=== PATIENT | female | born 1965 | race African-American/Black ===

== ENCOUNTER 2025-07-06 12:14 | Inpatient (IN) | payer MEDICAID, OTHER ==
[~2025-07-06] VITALS: Ht 167.6 cm; Wt 55.5 kg
[2025-07-06 12:45] VITALS: PULSE 110; RESP 20; O2SAT 95
--- NOTE | 2025-07-06 12:52 | ED.PDOC ---
SOB-HPI HPI Comments This is a 60 year old female BIBA presenting to the ED with chief complaint of SOB. Patient reports that she has been experiencing worsening SOB with associated abdominal swelling and bilateral leg swelling for the past 2-3 days. Patient relays that she has history of COPD and has used her inhaler, but no relief has been noted. Patient denies any chest pain, fever, chills, dizziness, cough, or hemoptysis. Chief Complaint: Shortness of Breath Time Seen by MD: 12:50 Reviewed notes: Nurses Notes, Vamp Wetter Notes, Medications, Allergies Information Source: Patient, Emergency Med Personnel Mode of Arrival: EMS Severity: Moderate Timing: Hours Duration: Since onset Context: At Rest PE Risk Factors: None History of: COPD Prehospital treatment: None Modifying Factors: Nothing Associated Signs and Symptoms: Leg Swelling Past Medical History PAST MEDICAL HISTORY: Anemia, COPD Surgical History: Denies all surgeries MANAGER CIVIL History: Denies all MANAGER CIVIL Hx Family History Family History: Reviewed,noncontributory to illness Social History Smoker: Non-Smoker Alcohol: Denies ETOH Use Drugs: Denies Drug Use Lives In: Home Constitutional: denies: chills, diaphoresis, fatigue, fever, malaise, sweats, weakness, others EENTM: denies: blurred vision, double vision, ear bleeding, ear discharge, ear drainage, ear pain, ear ringing, eye pain, eye redness, hearing loss, mouth pain, mouth swelling, nasal discharge, nose bleeding, nose congestion, nose pain, photophobia, tearing, throat pain, throat swelling, voice changes, others Respiratory: reports: shortness of breath; denies: cough, hemoptysis, orthopnea, SOB at rest, SOB with excertion, stridor, wheezing, others Cardiovascular: reports: edema; denies: chest pain, dizzy spells, diaphoresis, Dyspnea on exertion, irregular heart beat, left arm pain, lightheadedness, palpitations, PND, syncope, others Gastrointestinal: denies: abdomen distended, abdominal pain, blood streaked bowels, constipated, diarrhea, dysphagia, difficulty swallowing, hematemesis, melena, nausea, poor appetite, poor fluid intake, rectal bleeding, rectal pain, vomiting, others Genitourinary: denies: abnormal vagina bleeding, burning, dyspareunia, dysuria, flank pain, frequency, hematuria, incontinence, pain, , vagina discharge, urgency, others Neurological: denies: dizziness, fainting, headache, left sided numbness, left sided weakness, numbness, paresthesia, pre-existing deficit, right sided numbness, right sided weakness, seizure, speech problems, tingling, tremors, weakness, others Musculoskeletal: denies: back pain, gout, joint pain, joint swelling, muscle pain, muscle stiffness, neck pain, others Integumetry: denies: bruises, change in color, change in hair/nails, dryness, laceration, lesions, lumps, rash, wounds, others Allergic/Immunocompromised: denies: Difficulty Healing, Frequent Infections, Hives, Itching, others Hematologic/Lymphatic: denies: anemia, blood clots, easy bleeding, easy bruising, swollen glands, others Endocrine: denies: excessive hunger, excessive sweating, excessive thirst, excessive urination, flushing, intolerance to cold, intolerance to heat, unexplained weight gain, unexplained weight loss, others Psychiatric: denies: anxiety, bipolar disorder, depression, hopeless, panic disorder, schizophrenia, sleepless, suicidal, others All Other Systems: Reviewed and Negative Physical Exam General Appearance: No Apparent Distress, Normal HEENT: Normal ENT Inspection, Pharynx Normal, TMs Normal Neck: Full Range of Motion, Non-Tender, Normal, Normal Inspection Respiratory: Chest Non-Tender, No Accessory Muscle Use, No Respiratory Distress, Other (Tachypnea, Shallow breathing) Cardiovascular: No JVD, No Murmur, No Gallop, Normal Peripheral Pulses, Tachycardia, Other (Bilateral lower extremity edema) Breast Exam: Deferred Gastrointestinal: No Organomegaly, Non Tender, No Pulsatile Mass, Normal Bowel Sounds, Soft Genitalia: Deferred Pelvic: Deferred Rectal: Deferred Extremities: No calf tenderness, Normal capillary refill, Normal inspection, Normal range of motion, Non-tender Musculoskeletal : Apperance: Normal Neurologic: Alert, software designer II-XII nml as Tested, No Motor Deficits, Normal Affect, Normal Mood, No Sensory Deficits Cerebellar Function: Normal Reflexes: Normal Skin: Dry, Normal Color, Warm Lymphatic: No Adenopathy Was a procedure done? Was a procedure done?: No Differential Dx Differential Diagnosis: CHF, COPD X-Ray, Labs, Meds, VS Vital Signs Date Time Temp Pulse Resp B/P (MAP) Pulse Ox O2 Delivery O2 Flow Rate FiO2 07/06/25 16:00 111 07/06/25 16:00 99 22 115/61 (79) 07/06/25 15:00 119 22 95 Nasal Cannula* 4 36 07/06/25 14:34 110/73 07/06/25 14:00 16 100 Nasal Cannula* 4 36 07/06/25 12:45 98.3 110 20 122/76 (91) 95 98.3 07/06/25 12:45 110 20 95 Nasal Cannula* 4 36 07/06/25 12:15 98.7 65 22 95/60 95 98.7 Lab Test 07/06/25 16:54 07/06/25 15:55 07/06/25 13:47 07/06/25 12:50 Range/Units Urine Color Light-yellow Yellow Urine Clarity Clear Clear Urine pH 5.5 5.0-9.0 Urine Specific [place] 1.024 1.001-1.035 Urine Protein Negative Negative Urine Ketones Negative Negative Urine Blood Negative Negative /uL Urine Nitrite Negative Negative Urine Bilirubin Negative Negative Urine Urobilinogen Normal Negative mg/dL Urine Leukocyte Esterase Negative Negative /uL Urine RBC 2 0 - 4 /hpf Urine Microscopic WBC 1 0-5 /HPF Urine Squamous Epithelial Cells Few <5 /hpf Urine Bacteria Few H None Seen /hpf Urine Mucus Few None Seen Urine Glucose Normal Normal mg/dL Troponin I High Sensitivity 171 *H 160 *H 160 *H </=34 ng/L Sodium Level 139 136-145 mmol/L Potassium Level 4.6 3.5-5.1 mmol/L Chloride Level 102 98-107 mmol/L Carbon Dioxide Level 31 20-31 mmol/L Anion Gap 6 5-15 Blood Urea Nitrogen 14 9-23 mg/dL Creatinine 0.66 0.550-1.02 mg/dL Glomerular Filtration Rate Calc 99 >90 mL/min BUN/Creatinine Ratio 21.2 H 10.0-20.0 Serum Glucose 98 74-106 mg/dL Calcium Level 8.4 L 8.7-10.4 mg/dL Total Bilirubin 0.8 0.2-1.0 mg/dL Aspartate Amino Transferase (AST) 23 13-40 U/L Alanine Aminotransferase (ALT) 16 7-40 U/L Alkaline Phosphatase 78 46-116 U/L Total Protein 7.1 5.7-8.2 g/dL Albumin 2.8 L 3.2-4.8 g/dL Lipase 19 12-53 U/L White Blood Count 9.8 4.4-10.8 10^3/uL Red Blood Count 5.33 H 4.0-5.20 10^6/uL Hemoglobin 15.5 12.2-16.2 g/dL Hematocrit 48.0 H 36.0-46.0 % Mean Corpuscular Volume 90.0 80.0-100.0 fL Mean Corpuscular Hemoglobin 29.0 28.0-32.0 pg Mean Corpuscular Hemoglobin Concent 32.2 32.0-36.0 g/dL Red Cell Distribution Width 16.8 H 11.8-14.3 % Platelet Count 219 140-450 10^3/uL Mean Platelet Volume 9.8 6.9-10.8 fL Neutrophils (%) (Auto) 76.2 37.0-80.0 % Lymphocytes (%) (Auto) 19.1 10.0-50.0 % Monocytes (%) (Auto) 4.2 0.0-12.0 % Eosinophils (%) (Auto) 0.1 0.0-7.0 % Basophils (%) (Auto) 0.4 0.0-2.0 % Neutrophils # (Auto) 7.4 1.6-8.6 10 ^3/uL Lymphocytes # (Auto) 1.9 0.4-5.4 10 ^3/uL Monocytes # (Auto) 0.4 0-1.3 10 ^3/uL Eosinophils # (Auto) 0 0-0.8 10 ^3/uL Basophils # (Auto) 0 0-0.2 10 ^3/uL Nucleated Red Blood Cells 0.2 % Hemoglobin A1c 6.4 H <5.7 % A1C Lactic Acid Level 2.0 0.4-2.0 mmol/L B-Type Natriuretic Peptide 701.28 0-100 pg/mL Microbiology Date/Time Source Procedure Growth Status 07/06/25 13:03 Blood Blood Culture - Preliminary NO GROWTH AFTER 48 HOURS OF INCUBATION. Resulted 07/06/25 12:50 Blood Blood Culture - Preliminary NO GROWTH AFTER 48 HOURS OF INCUBATION. Resulted Time of 1ST Reevaluation: 13:48 Reevaluation 1ST: Unchanged Patient Education/Counseling: Diagnosis, Treatment Family Education/Counseling: Diagnosis, Treatment SEPSIS Sepsis Screen Physician Orders Chest Portable (07/06/25 12:47) Electrocardigram (07/06/25 12:47) Blood Culture (07/06/25 12:47) Electrocardigram (07/06/25 13:47) Electrocardigram (07/06/25 15:47) Ct Chest/Ab/Pl W Con- Iv Only (07/06/25 15:34) Vital Signs Date Time Temp Pulse Resp B/P (MAP) Pulse Ox O2 Delivery O2 Flow Rate FiO2 07/06/25 16:00 111 07/06/25 16:00 99 22 115/61 (79) 07/06/25 15:00 119 22 95 Nasal Cannula* 4 36 07/06/25 14:34 110/73 07/06/25 14:00 16 100 Nasal Cannula* 4 36 07/06/25 12:45 98.3 110 20 122/76 (91) 95 98.3 07/06/25 12:45 110 20 95 Nasal Cannula* 4 36 07/06/25 12:15 98.7 65 22 95/60 95 98.7 Laboratory Tests Test 07/06/25 12:50 Lactic Acid Level 2.0 mmol/L (0.4-2.0) White Blood Count 9.8 10^3/uL (4.4-10.8) Departure 1 Departure Time of Disposition: 07:10 (Patient presented with acute shortness of breath concerning for acute on chronic COPD Exacerbation, Pneumonia, ACS, CHF, Pneumothorax. Less likely PE, Dissection. Data: 1. I ordered and reviewed the result of at least 3 labs including a CBC, BMP, and Troponin. 2. I independently interpreted the following tests: Chest X-ray shows benign chest .Risk:This patient has a high risk of morbidity due to further diagnostic testing or treatment and may suffer from respiratory or cardiac etiology . Workup reveals a likely COPD Exacerbation and patient should be admitted for further workup. and possible expert consultation.) Impression: Primary Impression: Acute and chronic respiratory failure Additional Impression: Shortness of breath Disposition: ADMITTED INPATIENT Admit to: Tele Condition: Guarded Critical Care Note Critical Care Time?: Yes Critical care comment: Acute on chronic respiratory failure Authorized and Performed by: Kyleigh Rivera MD Total critical care time: Approximately 39 minutes Due to a high probability of clinically significant, life threatening deterioration, the patient required my highest level of preparedness to intervene emergently and I personally spent this critical care time directly and personally managing the patient. This critical care time included obtaining a history; examining the patient; pulse oximetry; ordering and review of studies; arranging urgent treatment with development of a management plan; evaluation of patient's response to treatment; frequent reassessment; and, discussions with other providers. This critical care time was performed to assess and manage the high probability of imminent, life-threatening deterioration that could result in multi-organ failure. It was exclusive of separately billable procedures and treating other patients and teaching time. Please see my other sections and the rest of the note for further information on patient assessment and treatment. Stability Stability form required: No Heart Score Heart Score: Heart Score Response (Comments) Value History Highly Suspicious 2 EKG Normal 0 Age 45-64 1 Risk Factors >3 or Hx ASHD 2 Troponin Normal limit 0 Total 5 I personally scribed for KYLEIGH RIVERA MD ([email or web address]) on 07/06/25 at 12:52. Electronically submitted by Cahim Sosa ([email or web address]). KYLEIGH RIVERA MD Jul 06, 2025 12:52
[2025-07-06 13:37] LABS: Hematocrit 48.0 % (36.0-46.0); Hemoglobin 15.5 g/dL (12.2-16.2); Mean Corpuscular Hemoglobin 29.0 pg (28.0-32.0); Mean Corpuscular Volume 90.0 fL (80.0-100.0); Nucleated Red Blood Cells % 0.2 %
--- NOTE | 2025-07-06 13:38 | DVH ---
CHEST RADIOGRAPH Indication: sob Technique: Single frontal view of the chest was obtained Comparison: None FINDINGS: Lines and Tubes: None Lungs: Hyperinflation of the lungs. Diffuse interstitial prominence. Patchy opacities of the right lower lobe and left upper to mid lung zone. Blunting of the left costophrenic angle. No pneumothorax. Cardiomediastinal contours: Unremarkable Bones: No acute osseous abnormality. IMPRESSION: Hyperinflation of the lungs with diffuse interstitial prominence which could be from fibrotic changes with patchy left upper to mid lung zone and right lower lung zone opacities which may represent areas of scarring. Underlying mass can not be excluded. CT is recommended for further evaluation. Blunting of the left costophrenic angle which may be from atelectasis/ scarring/trace effusion.
[2025-07-06 14:18] LABS: Alanine Aminotransferase 16 U/L (7-40); Alkaline Phosphatase 78 U/L (46-116); Anion Gap 6 (5-15); BUN/Creatinine Ratio 21.2 (10.0-20.0); Blood Urea Nitrogen 14 mg/dL (9-23); Carbon Dioxide 31 mmol/L (20-31); Chloride 102 mmol/L (98-107); Glucose 98 mg/dL (74-106); Potassium 4.6 mmol/L (3.5-5.1); Sodium 139 mmol/L (136-145); Total Protein 7.1 g/dL (5.7-8.2)
[2025-07-06 14:19] LABS: Bilirubin, Total 0.8 mg/dL (0.2-1.0)
[2025-07-06 14:20] LABS: Albumin 2.8 g/dL (3.2-4.8); Calcium 8.4 mg/dL (8.7-10.4)
[2025-07-06] MEDS: FUROSEMIDE 20 MG/2 ML VIAL IV ONE ×2 (14:34→18:37)
[2025-07-06 14:45] LABS: Lipase 19 U/L (12-53)
[2025-07-06] MEDS: ALBUTEROL SULF 2.5 MG/0.5ML(0.5%) NEB SOLN NEB ONE (14:46)
[2025-07-06] MEDS: IPRATROPIUM BROM 0.5 MG/2.5ML INH SOL NEB ONE (14:46)
[2025-07-06 15:00] VITALS: PULSE 119; RESP 22; O2SAT 95
[2025-07-06] MEDS: NICOTINE 14 MG/24HR TOPICAL PATCH TD ONE (15:15)
[2025-07-06] MEDS: IOHEXOL 300 MG/ML 100ML BOTTLE IJ ONE (16:02)
--- NOTE | 2025-07-06 17:08 | DVH ---
Exam: CT CT CHEST/AB/PL W CON- IV ONLY History: better evaluate x-ray findings, worsening abdominal tenderne Comparison Study: None TECHNIQUE: Multidetector CT of the chest, abdomen and pelvis with contrast IV contrast. Axial, coronal and sagittal multiplanar reformats were obtained from the axial data set by the technologist. Radiation Dose Information: CT Dose: CTDI volume is 11.21 mGy. Dose-length product is 771.15 mGy*cm FINDINGS: Chest: Thyroid gland is unremarkable. Mild cardiomegaly enlargement of the right atrium and ventricle. Dilatation of the pulmonary trunk up to 36 mm. No Pulmonary embolism. No aortic aneurysm or dissection. Mediastinal lymphadenopathy measuring up to 1.5 cm. Severe emphysematous changes of bilateral lungs with bilateral lung scarring. 2.6 x 2.5 x 3.9 cm masslike density over the left lower lobe abutting the pleura. Patchy left upper lobe consolidation abutting the fissure. No pneumothorax. Trace left-sided pleural effusion. Small right posterior diaphragm atic hernia containing Segmental bowel and mesenteric fat. 0.5 x 0.9 cm fatty lesion within the left breast which may represent lipoma. Additional 0.6 x 1 cm fatty lesion is noted within the left breast. Significant body wall edema. No evidence of acute osseous abnormalities. Abdomen and pelvis: Diffuse mesenteric edema with large volume ascites. Mild hepatomegaly with hepatic steatosis. Otherwise, liver, spleen, pancreas and adrenal glands are unremarkable. The gallbladder is decompressed and surrounded by ascitic fluid. Subcentimeter hypodense left renal lesion that is too small to characterize. Otherwise, kidneys unremarkable. Mild wall thickening of the Urinary bladder. Uterus and adnexa unremarkable. Wall thickening of the distal esophagus. Hyperdense material within the distal stomach which may represent Ingested material. Wall thickening of the duodenum and proximal jejunum. The remainder of the small bowel loops are fluid-filled and nondistended. Appendix is not completely visualized. Limited evaluation of the partially visualized Appendix due to surrounding ascites. Sigmoid diverticulosis limited evaluation for diverticulitis given surrounding ascites. Small amount of fecal material within the colon. No evidence of intraperitoneal free air. No evidence of aortic aneurysm or dissection. Mild atherosclerotic calcification of the aorta and bilateral iliacs. Limited evaluation for lymphadenopathy. Small ascitic fluid containing umbilical hernia. There is about 30% loss of vertebral body height of L5 of unknown chronicity, likely chronic. Otherwise, no evidence of acute osseous abnormalities. Significant body wall edema. IMPRESSION: 2.6 x 2.5 x 3.9 cm masslike density over the left lower lobe abutting the pleura. Patchy left upper lobe consolidation abutting the fissure may represent pneumonia/atelectasis with a mass lesion not excluded. Severe emphysematous changes of bilateral lungs with scattered bilateral lung atelectasis. Mediastinal lymphadenopathy which may be reactive or neoplastic. Significant body wall edema. Large ascites with mesenteric edema. Wall thickening of the proximal small bowel loops which may be due to inadequate distention Slight surrounding ascites with enteritis not excluded. Wall thickening of the distal esophagus. Correlate for esophagitis. Cardiomegaly with enlargement of the right atrium and right ventricle. Dilatation of the pulmonary trunk. Correlate for pulmonary arterial hypertension. Additional findings as above.
[2025-07-06 17:18] LABS: Urine Protein, UAD Negative (Negative)
[2025-07-06] MEDS ORDERED: MORPHINE SULFATE INJ 2 MG/ml SYRG IV PRN (18:15)
[2025-07-06] MEDS ORDERED: HYDROcodone-ACET 5/325MG TAB PO PRN (18:15)
[2025-07-06] MEDS: methylPREDNISolone SOD SUCC 40 MG/ML VL IV ONE (18:35)
--- NOTE | 2025-07-06 18:49 | DVHHP2 ---
History of Present Illness History of Present Illness This is a 61-year-old female with COPD, heart failure, depression, psoriasis, and active smoking who presents with one week of worsening shortness of breath accompanied by progressive bilateral leg swelling and abdominal distention. She reports that her breathing has deteriorated significantly compared to her baseline, and she becomes winded even with minimal activity. She denies fever or chest pain but notes increased cough and generalized fatigue. On arrival she was tachypneic, hypoxic on nasal cannula, and had diffuse wheezing and crackles. ABG showed acute on chronic hypercapnic respiratory failure (pH 7.31, pCO2 64), and BiPAP was initiated. CT chest/abdomen/pelvis with contrast demonstrated severe emphysematous changes, atelectasis with a possible mass lesion, and right-sided lymphadenopathy concerning for malignancy. The study also showed dilated pulmonary artery, right atrial and ventricular enlargement, hepatomegaly with periportal edema, mesenteric edema, body wall edema, and large ascites, consistent with pulmonary hypertension and systemic volume overload. Also esophageal thickening. She lives at home and smokes approximately three cigarettes per day. No known allergies. Past Medical History COPD on home O2, heart failure, depression, psoriasis. Past Surgical History No surgeries reported. Medications Fluticasone inhaler, albuterol inhaler, nicotine patch, clobetasol cream, potassium chloride, atorvastatin, famotidine, sertraline, ibuprofen. Social History Lives at home. Active smoker. Denies alcohol or illicit drugs. Review of Systems Allergies: Coded Allergies: NO KNOWN ALLERGIES (Unverified , 07/06/25) Medications Current Medications Medications Dose Ordered Sig/Darci Route Start Time Stop Time Status Last Admin Dose Admin Acetaminophen 650 mg Q6HP PRN PO 07/06/25 18:15 Acetaminophen/ Hydrocodone Bitart 1 tab Q4HP PRN PO 07/06/25 18:15 Ondansetron HCl 4 mg Q4HP PRN IV 07/06/25 18:15 Morphine Sulfate 2 mg Q4HPRN PRN IV 07/06/25 18:15 Enoxaparin Sodium 40 mg DAILY SC 07/07/25 10:00 Ceftriaxone Sodium 50 ml @ 100 mls/hr DAILY@09 IV 07/06/25 18:15 07/06/25 18:37 100 MLS/HR Azithromycin 250 ml @ 125 mls/hr DAILY IV 07/07/25 10:00 Methylprednisolone Sodium Succinate 40 mg Q8HR IV 07/07/25 06:00 Furosemide 40 mg DAILY IV 07/07/25 10:00 Exam Vital Signs Vital Signs Date Time Temp Pulse Resp B/P (MAP) Pulse Ox O2 Delivery O2 Flow Rate FiO2 07/06/25 18:37 116/68 07/06/25 18:25 95 Nasal Cannula* 4 36 07/06/25 16:00 111 07/06/25 16:00 22 07/06/25 12:45 98.3 98.3 Exam General: Mild respiratory distress on BiPAP, fatigued but alert. HEENT: PERRL, moist mucous membranes. Neck: No clear JVD due to mask position. Heart: Regular rhythm, no murmurs. Lungs: Diffuse wheezing and crackles bilaterally; diminished air movement. Abdomen: Distended, soft, ascites, mild discomfort; no rebound or guarding. Extremities: Bilateral pitting edema. Neuro: Moves all extremities, no focal deficits. Skin: Warm, dry. Labs/Xrays Labs Test 07/06/25 16:54 07/06/25 15:55 07/06/25 13:47 07/06/25 12:50 Range/Units Urine Color Light-yellow Yellow Urine Clarity Clear Clear Urine pH 5.5 5.0-9.0 Urine Specific [place] 1.024 1.001-1.035 Urine Protein Negative Negative Urine Ketones Negative Negative Urine Blood Negative Negative /uL Urine Nitrite Negative Negative Urine Bilirubin Negative Negative Urine Urobilinogen Normal Negative mg/dL Urine Leukocyte Esterase Negative Negative /uL Urine RBC 2 0 - 4 /hpf Urine Microscopic WBC 1 0-5 /HPF Urine Squamous Epithelial Cells Few <5 /hpf Urine Bacteria Few H None Seen /hpf Urine Mucus Few None Seen Urine Glucose Normal Normal mg/dL Troponin I High Sensitivity 171 *H </=34 ng/L Sodium Level 139 136-145 mmol/L Potassium Level 4.6 3.5-5.1 mmol/L Chloride Level 102 98-107 mmol/L Carbon Dioxide Level 31 20-31 mmol/L Anion Gap 6 5-15 Blood Urea Nitrogen 14 9-23 mg/dL Creatinine 0.66 0.550-1.02 mg/dL Glomerular Filtration Rate Calc 99 >90 mL/min BUN/Creatinine Ratio 21.2 H 10.0-20.0 Serum Glucose 98 74-106 mg/dL Calcium Level 8.4 L 8.7-10.4 mg/dL Total Bilirubin 0.8 0.2-1.0 mg/dL Aspartate Amino Transferase (AST) 23 13-40 U/L Alanine Aminotransferase (ALT) 16 7-40 U/L Alkaline Phosphatase 78 46-116 U/L Total Protein 7.1 5.7-8.2 g/dL Albumin 2.8 L 3.2-4.8 g/dL Lipase 19 12-53 U/L White Blood Count 9.8 4.4-10.8 10^3/uL Red Blood Count 5.33 H 4.0-5.20 10^6/uL Hemoglobin 15.5 12.2-16.2 g/dL Hematocrit 48.0 H 36.0-46.0 % Mean Corpuscular Volume 90.0 80.0-100.0 fL Mean Corpuscular Hemoglobin 29.0 28.0-32.0 pg Mean Corpuscular Hemoglobin Concent 32.2 32.0-36.0 g/dL Red Cell Distribution Width 16.8 H 11.8-14.3 % Platelet Count 219 140-450 10^3/uL Mean Platelet Volume 9.8 6.9-10.8 fL Neutrophils (%) (Auto) 76.2 37.0-80.0 % Lymphocytes (%) (Auto) 19.1 10.0-50.0 % Monocytes (%) (Auto) 4.2 0.0-12.0 % Eosinophils (%) (Auto) 0.1 0.0-7.0 % Basophils (%) (Auto) 0.4 0.0-2.0 % Neutrophils # (Auto) 7.4 1.6-8.6 10 ^3/uL Lymphocytes # (Auto) 1.9 0.4-5.4 10 ^3/uL Monocytes # (Auto) 0.4 0-1.3 10 ^3/uL Eosinophils # (Auto) 0 0-0.8 10 ^3/uL Basophils # (Auto) 0 0-0.2 10 ^3/uL Nucleated Red Blood Cells 0.2 % Lactic Acid Level 2.0 0.4-2.0 mmol/L B-Type Natriuretic Peptide 701.28 0-100 pg/mL SEPSIS Sepsis Screen Date sepsis recognized/suspect: Jul 06, 2025 Time Sepsis recognized/suspect: 1244 Recent Procedure: No On Antibiotic Therapy: No Respiratory Rate >20: No Heart Rate >90: Yes Temp<36 C (96.8 F) or >38.3 C: No SBP <90 or MAP <65 mmHG: No New Acute Mental Status Change: No Is the patient on CPAP, BIPAP,: No Physician Orders Chest Portable (07/06/25 12:47) Electrocardigram (07/06/25 12:47) Blood Culture (07/06/25 12:47) Electrocardigram (07/06/25 13:47) Electrocardigram (07/06/25 15:47) Ct Chest/Ab/Pl W Con- Iv Only (07/06/25 15:34) Admit (07/06/25 18:13) Code Status (07/06/25 18:13) Vital Signs .PER UNIT PROTOCOL (07/06/25 18:13) Review Orders With Adm.Md (07/06/25 18:13) Regular Diet (07/06/25 Dinner) Acetaminophen Tablet (Tylenol Tablet) (07/06/25 18:15) Notify Md Of Changes From Base (07/06/25 18:13) Advance Directive (07/06/25 18:13) Urinalysis (07/06/25 18:13) Patient Condition (07/06/25 18:13) Allergies (07/06/25 18:13) Hydrocodone-Acet 5/325mg Tab ([place]enn 5/32 (07/06/25 18:15) Ondansetron Hcl (Zofran) (07/06/25 18:15) Drug Screen (07/06/25 18:13) Hemoglobin A1c (07/06/25 18:13) Morphine Sulfate Injection (07/06/25 18:15) Enoxaparin Sodium (Lovenox) (07/07/25 10:00) Oxygen By Nasal Cannula (07/06/25 18:13) Stat Ekg For Chest Pain (07/06/25 18:13) Notify Md Of Changes From Base (07/06/25 18:13) High School Band Teacher For 24 Hours (07/06/25 18:13) Emergency Dysrhythmia Protocol (07/06/25 18:13) Rhythm Strips Once Every Shift (07/06/25 18:13) *Consult (07/06/25 18:13) Ceftriaxone 1gm/50ml (Rocephin) (07/06/25 18:15) Azithromycin 500mg/250ml (Zithromax 500m (07/07/25 10:00) Furosemide Injection (Lasix Injection) (07/07/25 10:00) Abg W/ Co-Ox (07/06/25 18:13) Echo 2d Mode Cardiac Dop (07/06/25 18:13) Methylprednisolone Sod Succ (Solu Medrol (07/07/25 06:00) * Radiologist Consult (07/06/25 18:29) Vital Signs Date Time Temp Pulse Resp B/P (MAP) Pulse Ox O2 Delivery O2 Flow Rate FiO2 07/06/25 18:37 116/68 07/06/25 18:25 95 Nasal Cannula* 4 36 07/06/25 16:00 111 07/06/25 16:00 99 22 115/61 (79) 07/06/25 15:00 119 22 95 Nasal Cannula* 4 36 07/06/25 14:34 110/73 07/06/25 14:00 16 100 Nasal Cannula* 4 36 07/06/25 12:45 98.3 110 20 122/76 (91) 95 98.3 07/06/25 12:45 110 20 95 Nasal Cannula* 4 36 07/06/25 12:15 98.7 65 22 95/60 95 98.7 Laboratory Tests Test 07/06/25 12:50 Lactic Acid Level 2.0 mmol/L (0.4-2.0) White Blood Count 9.8 10^3/uL (4.4-10.8) Medications Medications Dose Ordered Sig/Darci Route Start Time Stop Time Status Last Admin Dose Admin Albuterol 5 mg ONCE ONCE NEB 07/06/25 13:00 07/06/25 13:01 DC 07/06/25 14:46 5 MG Ceftriaxone Sodium 50 ml @ 100 mls/hr DAILY@09 IV 07/06/25 18:15 07/06/25 18:37 100 MLS/HR Furosemide 20 mg ONCE ONCE IV 07/06/25 14:30 07/06/25 14:31 DC 07/06/25 14:34 20 MG Furosemide 20 mg ONCE ONCE IV 07/06/25 18:15 07/06/25 18:28 DC 07/06/25 18:37 20 MG Ipratropium [place] 0.5 mg ONCE ONCE NEB 07/06/25 13:00 07/06/25 13:01 DC 07/06/25 14:46 0.5 MG Methylprednisolone Sodium Succinate 40 mg ONCE ONCE IV 07/06/25 18:30 07/06/25 18:31 DC 07/06/25 18:35 40 MG Nicotine 1 patch ONCE ONCE TD 07/06/25 14:45 07/06/25 14:46 DC 07/06/25 15:15 1 PATCH Assessment/Plan Assessment/Plan # Acute on chronic hypercapnic respiratory failure ABG with pH 7.31 and pCO2 64 consistent with ventilatory failure in COPD. Start BiPAP and trend ABGs for improvement. # COPD exacerbation Clinical presentation and exam support acute worsening of airflow obstruction. Continue IV steroids and AB, DuoNebs, and titrate oxygen to maintain saturation 8892%. # Suspected pulmonary neoplasm CT shows possible mass lesion and right-sided lymphadenopathy concerning for malignancy. Pulmonology consulted; IR consult placed for evaluation of tissue sampling # Pulmonary hypertension Imaging shows dilated pulmonary artery and right heart enlargement, consistent with chronic disease. Avoid excessive oxygen, optimize ventilation, and obtain echocardiogram for further assessment. # Congestive heart failure with volume overload Findings of hepatomegaly, mesenteric edema, body wall edema, and ascites with elevated BNP indicate decompensation. Continue IV furosemide with strict intake/output monitoring and BMP follow-up. #Ascites Paracentesis ordered # Tobacco use disorder Active smoking contributing to COPD progression and malignancy risk. Provide cessation counseling and continue nicotine replacement. # Depression Stable # Psoriasis Stable. Case discussed with the patient, about the need of biopsy to exclude malignancy, she agreed, case discussed with Dr Hale, hydraulic oil tool operator who advised IR consult for biopsy Case discussed with Dr Mark Full code NPO after midnight and no DVT prophylaxis in the case of biopsy tomorrow Plan discussed with: Patient, Other (rn) My Orders Orders - ANDREW SMITH Procedure Category Date Status Time Admit ADMIT 07/06/25 Transmitted 18:13 Code Status CODE 07/06/25 Transmitted 18:13 Vital Signs THOM 07/06/25 In Process 18:13 Review Orders With THOM 07/06/25 In Process . 18:13 Regular Diet DIET 07/06/25 Transmitted Dinner Acetaminophen Tablet PHA 07/06/25 In Process (Tylenol Tablet) 18:15 Notify Md Of Changes THOM 07/06/25 In Process From Base 18:13 Advance Directive THOM 07/06/25 In Process 18:13 Urinalysis LAB 07/06/25 Logged 18:13 Patient Condition ORDERS 07/06/25 Transmitted 18:13 Allergies THOM 07/06/25 In Process 18:13 Hydrocodone-Acet PHA 07/06/25 In Process 5/325mg Tab (Penn 18:15 Ondansetron Hcl PHA 07/06/25 In Process (Zofran) 18:15 Drug Screen LAB 07/06/25 Logged 18:13 Hemoglobin A1c LAB 07/06/25 In Process 18:13 Morphine Sulfate PHA 07/06/25 In Process Injection 18:15 Enoxaparin Sodium PHA 07/07/25 In Process (Lovenox) 10:00 Oxygen By Nasal RT 07/06/25 Transmitted Cannula 18:13 Stat Ekg For Chest THOM 07/06/25 In Process Pain 18:13 Notify Md Of Changes THOM 07/06/25 In Process From Base 18:13 High School Band Teacher For THOM 07/06/25 In Process 24 Hours 18:13 Emergency Dysrhythmia THOM 07/06/25 In Process Protocol 18:13 Rhythm Strips Once THOM 07/06/25 In Process Every Shift 18:13 *Consult CONS 07/06/25 Transmitted 18:13 Ceftriaxone 1gm/50ml PHA 07/06/25 In Process (Rocephin) 18:15 Azithromycin PHA 07/07/25 In Process 500mg/250ml 10:00 Furosemide Injection PHA 07/07/25 In Process (Lasix Injection) 10:00 Abg W/ Co-Ox RT 07/06/25 Logged 18:13 Echo 2d Mode Cardiac US 07/06/25 Logged DOP 18:13 Methylprednisolone PHA 07/07/25 In Process Sod Succ (Solu Medrol 06:00 * Radiologist Consult CONS 07/06/25 Transmitted 18:29 Date of Service: Jul 06, 2025 Billing Provider: CHRISTINE MARK MD Common Visit Codes: [id number] INP/OBS CARE (HIGH) Secondary Visit Codes: [id number] CARE PLAN 30 MINUTES ANDREW SMITH RESIDENT Jul 06, 2025 18:49
[2025-07-06 18:59] LABS: Base Excess 3.3 mmol/L (-2.0-3.0)
[2025-07-06 20:36] VITALS: BP 113/83; PULSE 111; RESP 20; TEMP 98.3; O2SAT 98
[2025-07-06 21:25] LABS: COVID19 ANTIGEN SOFIA FIA NEGATIVE (NEGATIVE)
--- NOTE | 2025-07-06 21:31 | DVH ---
ULTRASOUND ABDOMEN limited, 4 QUADRANTS INDICATION: FLUID CHECK FOR PARA Evaluate for ascites. TECHNIQUE: The four quadrants of the abdomen were scanned in glez-scale to assess for the presence of ascites. No solid organ assessment was performed. Ascites was noted in all 4 quadrants. FINDINGS/IMPRESSIONS: Ascites visualized in all 4 quadrants. No measurements or volumes obtained.
[2025-07-06 21:34] VITALS: BP 113/82; PULSE 107; O2SAT 90
[2025-07-06 21:43] LABS: Barbiturate Scree,Urine Neg (NEGATIVE); Benzodiazephine Screen, Urine Neg (NEGATIVE); Cannabinoid Screen, Urine Neg (NEGATIVE); Cocaine Screen, Urine Pos (NEGATIVE); Opiate Scree,Urine Neg (NEGATIVE); Phencyclidine Screen, Urine Neg (NEGATIVE)
[2025-07-06 21:44] LABS: Amphetamine Screen, Urine Neg (NEGATIVE)
[2025-07-06 21:59] LABS: Urine Protein, UAD Negative (Negative)
[2025-07-06 22:30] VITALS: BP 113/80; PULSE 79; RESP 17; TEMP 99.3; O2SAT 95
[2025-07-06] MEDS ORDERED: FURO40TA4 PO (22:34)
[2025-07-06] MEDS ORDERED: NICO21DI37 TOP (22:34)
[2025-07-06] MEDS ORDERED: FLUT110A8 PO (22:34)
[2025-07-06] MEDS ORDERED: SERT-289 PO (22:34)
[2025-07-06] MEDS ORDERED: ALBU108A5 PO (22:34)
[2025-07-06] MEDS ORDERED: FAMO20TA10 PO (22:34)
[2025-07-06] MEDS ORDERED: CLOB0.05 TOP (22:34)
[2025-07-06] MEDS ORDERED: POTA-215 PO (23:16)
[2025-07-06] MEDS ORDERED: ATOR40TA52 PO (23:16)
[2025-07-07] VITALS (13 sets, daily range): BP systolic 103–133; BP diastolic 75–90; PULSE 51–107; RESP 16–18; TEMP 97.2–98.4; O2SAT 90–98
--- NOTE | 2025-07-07 04:26 | DVHINCON2 ---
Date of service: Jul 06, [address] Gaytan Reason for Consultation Acute hypoxic respiratory failure and lung mass History of Present Illness This is a 61-year-old woman with PMHx of COPD, heart failure, depression, psoriasis, and active smoking who presents to ED today with one week of worsening shortness of breath accompanied by progressive bilateral leg swelling and abdominal distention. She reports that her breathing has deteriorated significantly compared to her baseline, and she becomes winded even with minimal activity. She denies fever or chest pain but notes increased cough and generalized fatigue. On arrival she was tachypneic, hypoxic on nasal cannula, and had diffuse wheezing and crackles. ABG showed acute on chronic hypercapnic respiratory failure (pH 7.31, pCO2 64), and BiPAP was initiated. CT chest/abdomen/pelvis with contrast demonstrated severe emphysematous changes, atelectasis with a possible mass lesion, and right-sided lymphadenopathy concerning for malignancy. The study also showed dilated pulmonary artery, right atrial and ventricular enlargement, hepatomegaly with periportal edema, mesenteric edema, body wall edema, and large ascites, consistent with pulmonary hypertension and systemic volume overload. Also esophageal thickening. Patient was admitted for further care. Pulmonary consultation is requested for evaluation and management of acute hypoxic respiratory failure and lung mass. Review of Systems: 14-point review of systems negative unless otherwise noted above. Past Medical History: COPD on home O2, heart failure, depression, psoriasis. Past Surgical History: Denies Medications: Reviewed. Allergies: No known drug allergies. Family History: No family history of premature CAD. No family history of lung disorders. Social History: Nonsmoker. No alcohol or illicit drug use. Family History: Patient reports no known family medical history. Allergies: Coded Allergies: NO KNOWN ALLERGIES (Unverified , 07/06/25) Home Meds Active Scripts Spironolactone (Aldactone) 25 Mg Tab, 25 MG PO DAILY for 30 Days, #30 TAB Prov:CHILO MIRANDA RESIDENT 07/11/25 Prednisone (Prednisone) 20 Mg Tab, 20 MG PO DAILY for 5 Days, #5 TAB Prov:CHILO MIRANDA RESIDENT 07/11/25 Levofloxacin Hemihydrate (LEVOFLOXACIN) 250 Mg Tab, 750 MG PO DAILY for 5 Days, #15 TAB Prov:CHILO MIRANDA RESIDENT 07/11/25 Furosemide (Furosemide) 40 Mg Tab, 40 MG PO BIDD for 30 Days, #60 TAB Prov:CHILO MIRANDA RESIDENT 07/11/25 Ergocalciferol (VITAMIN D 50228 UNIT) 50,000 [place], [address] UNIT PO Q7D for 30 Days, #10 CAP Prov:CHILO MIRANDA RESIDENT 07/11/25 Reported Medications Atorvastatin Calcium (ATORVASTATIN CALCIUM) 40 Mg Tab, 1 TAB PO DAILY, #30 TAB 5 Refills 07/06/25 Potassium Chloride (Klor-Con M10) 10 Meq Tab, 8 MEQ PO DAILY, TAB 07/06/25 Clobetasol Propionate (Clobetasol Propionate) 0.05 % Oin, TOP BID 07/06/25 Sertraline HCl (Sertraline HCl) 50 Mg Tab, 1 TAB PO DAILY 07/06/25 Famotidine (PEPCID TABLET) 20 Mg Tb, 1 TAB PO BID 07/06/25 Albuterol Sulfate (Albuterol Sulfate Hfa) 108 Mcg/Act Aer, 2 PUFF PO TID 07/06/25 Furosemide (Furosemide) 40 Mg Tab, 1 TAB PO DAILY 07/06/25 Nicotine (Nicotine Transdermal Syst) 21 Mg/24 Hr Dis, 1 PATCH TOP DAILY 07/06/25 Fluticasone Propionate (Fluticasone Propionate Hf) 110 Mcg/Act Aer, 1 PUFF PO BID 07/06/25 Current Medications Current Medications Medications (Trade) Dose Ordered Sig/Darci Route PRN Reason Start Time Stop Time Status Last Admin Acetaminophen (Tylenol Tablet) 650 mg Q6HP PRN PO PAIN SCALE 1-3 OR TEMP>100.4 07/06/25 18:15 Acetaminophen/ Hydrocodone Bitart ([place] 5/325MG Tab) 1 tab Q4HP PRN PO MODERATE PAIN (4-6 PAIN SCALE) 07/06/25 18:15 Ondansetron HCl (Zofran) 4 mg Q4HP PRN IV NAUSEA / VOMITING 07/06/25 18:15 Morphine Sulfate 2 mg Q4HPRN PRN IV SEVERE PAIN (7-10 PAIN SCALE) 07/06/25 18:15 Enoxaparin Sodium (Lovenox) 40 mg DAILY SC 07/07/25 10:00 07/06/25 19:41 DC Ceftriaxone Sodium 50 ml @ 100 mls/hr DAILY@09 IV 07/06/25 18:15 07/06/25 18:37 Azithromycin 250 ml @ 125 mls/hr DAILY IV 07/07/25 10:00 Methylprednisolone Sodium Succinate (Solu Medrol) 40 mg Q8HR IV 07/07/25 06:00 Furosemide (Lasix Injection) 40 mg DAILY IV 07/07/25 10:00 Pantoprazole Sodium (Protonix) 40 mg DAILY IV 07/07/25 10:00 Albuterol (Ventolin Medneb) 2.[address] [facility] 07/07/25 06:00 Ipratropium [place] (Atrovent Medneb) 0.[address] [facility] 07/07/25 06:00 Vital Signs Vital Signs Date Time Temp Pulse Resp B/P (MAP) Pulse Ox O2 Delivery O2 Flow Rate FiO2 07/07/25 01:00 97.5 51 17 114/79 (91) 95 97.5 07/06/25 22:27 Nasal Cannula* 4 36 Physical Exam Gen.: Patient lying in bed in no apparent distress. On supplemental oxygen. Head: Normocephalic, atraumatic. Eyes: EOMI/PERRLA. Ears: Normal hearing. Normal anatomy. Neck/trachea: Trachea midline, supple. Nose: Normal external anatomy. Mouth: Moist mucous membranes. Chest: Decreased air entry bilaterally. No wheezing or rhonchi. Cardiovascular: Positive S1, positive S2. Regular rate and rhythm. Abdomen: Positive bowel sounds in all 4 quadrants. Soft, non-tender, non- distended. : Deferred. Rectal: Deferred. Skin: Warm, dry. Intact. Extremities: 2+ radial pulses bilaterally. No lower extremity edema. Neuro: Awake, alert, oriented x3. No gross motor or sensory deficits. Cranial nerves II through XII intact. Gait not assessed. Labs/Diagnostic Data Labs Test 07/06/25 20:35 07/06/25 18:43 07/06/25 16:54 07/06/25 15:55 Range/Units Urine Color Colorless Yellow Urine Clarity Clear Clear Urine pH 5.0 5.0-9.0 Urine Specific [place] 1.011 1.001-1.035 Urine Protein Negative Negative Urine Ketones Negative Negative Urine Blood Negative Negative /uL Urine Nitrite Negative Negative Urine Bilirubin Negative Negative Urine Urobilinogen Normal Negative mg/dL Urine Leukocyte Esterase Negative Negative /uL Urine RBC <1 0 - 4 /hpf Urine Microscopic WBC 1 0-5 /HPF Urine Squamous Epithelial Cells Few <5 /hpf Urine Bacteria None seen None Seen /hpf Urine Glucose Normal Normal mg/dL Urine Opiates Screen Neg NEGATIVE Urine Fentanyl Screen Neg NEGATIVE Urine Barbiturates Screen Neg NEGATIVE Urine Phencyclidine Screen Neg NEGATIVE Urine Amphetamines Screen Neg NEGATIVE Urine Benzodiazepines Screen Neg NEGATIVE Urine Cocaine Screen Pos NEGATIVE Urine Cannabinoids Screen Neg NEGATIVE Influenza Type A Antigen Negative Negative Influenza Type B Antigen Negative Negative SARS-CoV-2 Antigen (Rapid) Negative NEGATIVE Blood Gas Specimen Type Arterial Blood Gas Sample Site Right radial Blood Gas Patient Temperature 37.0 Arterial Blood Date Drawn [id number] Arterial Blood pH 7.312 L 7.350-7.450 Arterial Blood Partial Pressure CO2 64.1 *H 32.0-45.0 mmHg Arterial Blood Partial Pressure O2 70.1 L 83.0-108.0 mmHg Arterial Blood HCO3 31.7 H 21.0-28.0 mmol/L Arterial Blood Oxygen Saturation 91.9 L 94.0-98.0 % Arterial Blood Base Excess 3.3 H -2.0-3.0 mmol/L Arterial Blood Oxyhemoglobin 87.6 L 94.0-98.0 % Arterial Blood Carboxyhemoglobin 4.2 H 0.5-1.5 % Arterial Blood Methemoglobin 0.5 0.0-1.5 % Arterial Blood Deoxyhemoglobin 7.7 H 0.0-5.0 % Gino Test Yes Blood Gas Total Hemoglobin 15.50 12.0-16.0 g/dL Blood Gas Modality Nasal cannula FiO2 % 32.0 Blood Gas Critical Value Read Back Yes Blood Gas Notified Whom dori Aguilera Blood Gas Notified Time [id number] Blood Gas Notified By Story Reader yves ray Urine Mucus Few None Seen Troponin I High Sensitivity 171 *H </=34 ng/L Test 07/06/25 13:47 07/06/25 12:50 Range/Units Sodium Level 139 136-145 mmol/L Potassium Level 4.6 3.5-5.1 mmol/L Chloride Level 102 98-107 mmol/L Carbon Dioxide Level 31 20-31 mmol/L Anion Gap 6 5-15 Blood Urea Nitrogen 14 9-23 mg/dL Creatinine 0.66 0.550-1.02 mg/dL Glomerular Filtration Rate Calc 99 >90 mL/min BUN/Creatinine Ratio 21.2 H 10.0-20.0 Serum Glucose 98 74-106 mg/dL Calcium Level 8.4 L 8.7-10.4 mg/dL Total Bilirubin 0.8 0.2-1.0 mg/dL Aspartate Amino Transferase (AST) 23 13-40 U/L Alanine Aminotransferase (ALT) 16 7-40 U/L Alkaline Phosphatase 78 46-116 U/L Total Protein 7.1 5.7-8.2 g/dL Albumin 2.8 L 3.2-4.8 g/dL Lipase 19 12-53 U/L White Blood Count 9.8 4.4-10.8 10^3/uL Red Blood Count 5.33 H 4.0-5.20 10^6/uL Hemoglobin 15.5 12.2-16.2 g/dL Hematocrit 48.0 H 36.0-46.0 % Mean Corpuscular Volume 90.0 80.0-100.0 fL Mean Corpuscular Hemoglobin 29.0 28.0-32.0 pg Mean Corpuscular Hemoglobin Concent 32.2 32.0-36.0 g/dL Red Cell Distribution Width 16.8 H 11.8-14.3 % Platelet Count 219 140-450 10^3/uL Mean Platelet Volume 9.8 6.9-10.8 fL Neutrophils (%) (Auto) 76.2 37.0-80.0 % Lymphocytes (%) (Auto) 19.1 10.0-50.0 % Monocytes (%) (Auto) 4.2 0.0-12.0 % Eosinophils (%) (Auto) 0.1 0.0-7.0 % Basophils (%) (Auto) 0.4 0.0-2.0 % Neutrophils # (Auto) 7.4 1.6-8.6 10 ^3/uL Lymphocytes # (Auto) 1.9 0.4-5.4 10 ^3/uL Monocytes # (Auto) 0.4 0-1.3 10 ^3/uL Eosinophils # (Auto) 0 0-0.8 10 ^3/uL Basophils # (Auto) 0 0-0.2 10 ^3/uL Nucleated Red Blood Cells 0.2 % Hemoglobin A1c 6.4 H <5.7 % A1C Lactic Acid Level 2.0 0.4-2.0 mmol/L B-Type Natriuretic Peptide 701.28 0-100 pg/mL Assessment Impression: Acute hypoxic respiratory failure Lung mass Ascites Atelectasis Pneumonia likely Gram-negative Likely chronic obstructive pulmonary disease Nicotine dependence Plan: Supplemental oxygen Titrate to keep O2 sats above 92%. CXR reviewed, demonstrates Hyperinflation of the lungs with diffuse interstitial prominence which could be from fibrotic changes with patchy left upper to mid lung zone and right lower lung zone opacities which may represent areas of scarring. Underlying mass can not be excluded. Blunting of the left costophrenic angle which may be from atelectasis/ scarring/trace effusion. CT chest, abdomen and pelvis reviewed; reveals a 2.6 x 2.5 x 3.9 cm masslike density over the left lower lobe abutting the pleura. Patchy left upper lobe consolidation abutting the fissure may represent pneumonia/atelectasis with a mass lesion not excluded. Severe emphysematous changes of bilateral lungs with scattered bilateral lung atelectasis. Mediastinal lymphadenopathy which may be reactive or neoplastic. Large ascites with mesenteric edema. Dilatation of the pulmonary trunk. Correlate for pulmonary arterial hypertension. See report for full details. Continue bronchodilators. Continue antibiotics Incentive spirometry Send sputum cultures Consult IR for lung biopsy Consult IR for paracentesis. Smoking cessation discussed greater than 10 minutes - smokes 0.5 PPD currently with >30 pack year smoking history Diurese to euvolemia Monitor renal function. Monitor electrolytes. Supplement as necessary. Monitor ins and outs. DVT prophylaxis. Prognosis: Poor given patient's multiple co-morbidities. Rest of plan per hospitalist and other consultants. Thank you, Dr. Gaytan, for allowing me to participate in this patient's care. Further recommendations will depend on the patient's clinical course. Please do not hesitate to contact me if you have any questions or concerns. This medical document was created using an electronic medical record system with [employer] dictation system. Although these documentations are being carefully reviewed, there may still be some phonetic and typographical changes. The errors are purely typographical, due to imperfection on the software program, and do not reflect any compromise in the patient's medical care. Plan discussed with: Patient, Other (RN/MD) Visit Coding Pulmonary Billing Provider: KELLI SIDDIQUI MD Date of Service if different f: Jul 06, 2025 Common Visit Codes: [id number] INP/OBS CARE (HIGH) KELLI SIDDIQUI MD Jul 07, 2025 04:26
[2025-07-07] MEDS: methylPREDNISolone SOD SUCC 40 MG/ML VL IV SCH (06:00)
[2025-07-07] MEDS: IPRATROPIUM BROM 0.5 MG/2.5ML INH SOL NEB SCH (06:11)
[2025-07-07] MEDS: ALBUTEROL SULF 2.5 MG/0.5ML(0.5%) NEB SOLN NEB SCH (06:12)
[2025-07-07 07:34] LABS: Hematocrit 41.2 % (36.0-46.0); Hemoglobin 13.0 g/dL (12.2-16.2); Mean Corpuscular Hemoglobin 28.6 pg (28.0-32.0); Mean Corpuscular Volume 90.9 fL (80.0-100.0); Nucleated Red Blood Cells % 0.1 %
[2025-07-07 07:35] LABS: Alanine Aminotransferase 16 U/L (7-40); Alkaline Phosphatase 84 U/L (46-116); Anion Gap 7 (5-15); BUN/Creatinine Ratio 21.9 (10.0-20.0); Blood Urea Nitrogen 14 mg/dL (9-23); Carbon Dioxide 30 mmol/L (20-31); Chloride 102 mmol/L (98-107); Cholesterol 77 mg/dL (< 200); Glucose 100 mg/dL (74-106); Magnesium 1.8 mg/dL (1.6-2.6); Potassium 4.8 mmol/L (3.5-5.1); Sodium 139 mmol/L (136-145); Total Protein 7.4 g/dL (5.7-8.2); Triglycerides 69 mg/dL (< 150)
[2025-07-07 07:36] LABS: Albumin 2.9 g/dL (3.2-4.8); Bilirubin, Total 0.4 mg/dL (0.2-1.0); Calcium 8.5 mg/dL (8.7-10.4); HDL Cholesterol 20 mg/dL (40-59)
[2025-07-07 07:47] LABS: INR 1.21 (0.9-1.15); Partial Thromboplastin Time 30.6 SEC (24.5-34.5); Prothrombin Time 12.6 sec (9.3-11.8)
[2025-07-07] MEDS ORDERED: VANCOMYCIN PER PHARMACY 0 MG IV SCH (08:30)
[2025-07-07 09:06] LABS: Base Excess 4.0 mmol/L (-2.0-3.0)
[2025-07-07] MEDS ORDERED: ENOXAPARIN SOD 40 MG/0.4 ML SYRINGE SC SCH (10:00)
[2025-07-07] MEDS ORDERED: FUROSEMIDE 40 MG/4 ML VIAL IV SCH (10:00)
--- NOTE | 2025-07-07 10:36 | DVH ---
CLINICAL HISTORY: b/l leg swelling TECHNIQUE: Color and duplex doppler imagine of the bilateral lower extremity veins was performed. Vessel compression and augmentation if possible was also performed. COMPARISON: None FINDINGS: Right Lower Extremity: Right common femoral vein: Normal compressibility and flow. Right superficial femoral vein: Normal compressibility and flow. Right popliteal vein: Normal compressibility and flow. Left Lower Extremity: Left common femoral vein: Normal compressibility and flow. Left superficial femoral vein: Normal compressibility and flow. Left popliteal vein: Normal compressibility and flow. IMPRESSION: NO SONOGRAPHIC EVIDENCE FOR DEEP VENOUS THROMBOSIS IN THE BILATERAL LOWER EXTREMITY VEINS.
[2025-07-07] MEDS: PANTOPRAZOLE 40 MG/10 ML VIAL INJ IV SCH (10:58)
[2025-07-07] MEDS: ERGOCALCIFEROL 50,000 UNIT(1.25MG) CAP PO SCH (10:58)
[2025-07-07] MEDS: FUROSEMIDE 20 MG/2 ML VIAL IV SCH (11:02)
[2025-07-07] MEDS: AZITHROMYCIN 500MG/250ML 250 ML IV SCH (11:02)
[2025-07-07 11:10] LABS: Triglycerides 67 mg/dL (< 150)
[2025-07-07 11:12] LABS: Cholesterol 78 mg/dL (< 200); HDL Cholesterol 21 mg/dL (40-59)
--- NOTE | 2025-07-07 12:20 | DVHPNRES ---
Progress Note Date Seen: Jul 07, 2025 Resident Creating Document: LESLIE NOVOA RESIDENT Medical Necessity Reason Pt with a Central, PICC or Fol: No Subjective Review of Systems This is a 61-year-old female with COPD on home oxygen 2 L per, heart failure, depression, psoriasis, and active smoking who presents with one week of worsening shortness of breath accompanied by progressive bilateral leg swelling and abdominal distention. She reports that her breathing has deteriorated significantly compared to her baseline for last 1 week, and she becomes winded even with minimal activity. Patient also endorse cough with uses 4 times for same duration. Patient also reported having the abdominal distention and leg edema for more than 2 weeks. On 4 the included patient also reported having paracentesis almost 3 years before in [facility]. On arrival she was tachypneic, hypoxic on nasal cannula, and had diffuse wheezing and crackles. ABG showed acute on chronic hypercapnic respiratory failure (pH 7.31, pCO2 64), and BiPAP was initiated. Of the lab workup revealed WBCs 12.1, UDS positive for cocaine, BNP 7 1, troponin I 160> 160> 171. TSH is 1.6. Abdominal US shows ascites, chest x-ray shows bilateral fibrotic changes, bilateral patchy opacity. CT chest/abdomen/pelvis with contrast demonstrated severe emphysematous changes, atelectasis with a possible mass lesion, and right-sided lymphadenopathy concerning for malignancy. The study also showed dilated pulmonary artery, right atrial and ventricular enlargement, hepatomegaly with periportal edema, mesenteric edema, body wall edema, and large ascites, consistent with pulmonary hypertension and systemic volume overload. Also esophageal thickening. Chest x-ray- Hyperinflation of the lungs with diffuse interstitial prominence which could be from fibrotic changes with patchy left upper to mid lung zone and right lower lung zone opacities which may represent areas of scarring. Doppler study of the lower extremity negative for DVT. Past Medical History-COPD on home O2, heart failure, depression, psoriasis. Past Surgical History-No surgeries reported. Medications-Fluticasone inhaler, albuterol inhaler, nicotine patch, clobetasol cream, potassium chloride, atorvastatin, famotidine, sertraline, ibuprofen. Social History-Lives at home. Active smoker. Denies alcohol or illicit drugs. Lives with son Allergy NKDA PCP Dr. Morgan Patient was seen today at bedside Labs and chart reviewed Repeat ABG revealed pH 7.349, pCO2-58.2, PO2 56.0, bicarbonate 31.3 Patient is still tachypneic, on 2 L of oxygen Thoracentesis Pending echo 2D Doppler study of the lower extremity negative for DVT On Lasix 20 mg IV b.i.d. Status post paracentesis by IR, 3.1 L of darinel colored fluid was removed. Patient was seen by Radiology for possible lung biopsy, reduced recommended for outpatient PET scan before deciding if patient needs any lying biopsy are not due to emphysema. Per nursing staff patient was allergic to magnesium sulfate IV, spoke to Dr. Keyes, recommended to give patient tablet magnesium oxide p.o.. Spoke to patient's sister Shayy, , discussed patient's current medical condition, plan of care, answered questions Objective vital signs Vital Sign Date Time Temp Pulse Resp B/P (MAP) Pulse Ox O2 Delivery O2 Flow Rate FiO2 07/07/25 11:02 116/85 07/07/25 08:41 98.0 80 16 97 98.0 07/07/25 08:17 Nasal Cannula* 4 36 Total Intake and Output 07/06/25 07/06/25 07/07/25 15:00 23:00 07:00 Intake Total 0 ml Balance 0 ml medications Current Medications Medications Dose Ordered Sig/Darci Route Start Time Stop Time Status Last Admin Dose Admin Acetaminophen 650 mg Q6HP PRN PO 07/06/25 18:15 Acetaminophen/ Hydrocodone Bitart 1 tab Q4HP PRN PO 07/06/25 18:15 Ondansetron HCl 4 mg Q4HP PRN IV 07/06/25 18:15 Morphine Sulfate 2 mg Q4HPRN PRN IV 07/06/25 18:15 Ceftriaxone Sodium 50 ml @ 100 mls/hr DAILY@09 IV 07/06/25 18:15 07/07/25 10:57 100 MLS/HR Azithromycin 250 ml @ 125 mls/hr DAILY IV 07/07/25 10:00 07/07/25 11:02 125 MLS/HR Methylprednisolone Sodium Succinate 40 mg Q8HR IV 07/07/25 06:00 Pantoprazole Sodium 40 mg DAILY IV 07/07/25 10:00 07/07/25 10:58 40 MG Albuterol 2.5 mg Q6HWA NEB 07/07/25 06:00 12/9/25 06:12 2.5 MG Ipratropium [place] 0.5 mg Q6HWA NEB 07/07/25 06:00 07/07/25 06:11 0.5 MG Ergocalciferol 50,000 unit Q7D PO 07/07/25 08:15 07/07/25 10:58 50,000 UNIT Vancomycin HCl 0 ml @ 0 mls/hr PER PHARMACY IV 07/07/25 08:30 Furosemide 20 mg BIDD IV 07/07/25 08:45 07/07/25 11:02 20 MG Examination General examination- awake, alert HEENT- PEERLA, no acute nasal discharge Cardiovascular- S1-S2 audible, rate and rhythm regular, no murmur Respiratory- diminished breath sounds, bilateral lung crackles, Gastrointestinal-distended abdomen, ascites present+++ Musculoskeletal-no acute joint swelling or tenderness or redness Lower extremity- bilateral leg edema+++ Neurological- cranial nerves intact, no acute dysarthria or dysphagia Psychiatry- denies depression or SI or HI Skin- no acute rash or purpura laboratory and microbiology Laboratory Tests 07/07/25 06:41 07/07/25 06:00 Test 07/07/25 06:00 Range/Units Serum Glucose 100 74-106 mg/dL Problem List/Assessment/Plan Problem List/Assessment/Plan Assessment and plan # acute on chronic hypoxic and hypercapnic respiratory failure l # COPD exacerbation # acute pneumonia Gram-positive versus Gram-negative # Sepsis due to above # emphysematous lung # suspected pulmonary mass/neoplasm # mediastinal lymphadenopathy -pulmonary on board-recommended for IR for lung biopsy and paracentesis -continue nebulization as prescribed -on ceftriaxone AND azithromycin -continue methylprednisolone as prescribed -pending blood culture, urine culture, sputum culture -Patient was seen by Radiology for possible lung biopsy, reduced recommended for outpatient PET scan before deciding if patient needs any lying biopsy are not due to emphysema. # acute on chronic heart failure systolic versus diastolic # anasarca # suspected pulmonary hypertension # bilateral leg edema likely due to above -continue Lasix 20 mg IV b.i.d. -continue nebulization as prescribed -Status post paracentesis by IR, 3.1 L of darinel colored fluid was removed. -pending echo 2D -strict I&O # Ruled out SBP -Ascitic fluid analysis shows WBC 441 with 91% monomorphic ( only 39 PMN) -Pending culture #NSTEMI type 2 likely due to demand lead ischemia -pending echo 2D -continue current conservative management # depression -resume home medication # psoriasis -continue current management # Substance abuse # Nicotine dependence -UDS positive for cocaine -counseled about the effect of substance abuse and also effect of smoking on health # Vitamin D Deficiency Replenished Goals of care, Code status full code ; discussed with >15 minutes PUD prophylaxis: Pantoprazole DVT prophylaxis: Lovenox Plan discussed with Dr. Mancia, nursing staff, Total time spent on patient evaluation, chart review, assessment and plan, discussion discussion >35 minutes Plan discussed with: Patient, Other (RN) My Orders My Orders Orders - LESLIE NOVOA RESIDENT Procedure Category Date Status Time Ergocalciferol PHA 07/07/25 In Process (Vitamin D 50,000 08:15 Abg W/ Co-Ox RT 07/07/25 Logged 08:20 Strict I & O THOM 07/07/25 In Process 08:20 Acute Hepatitis Panel LAB 07/07/25 In Process 08:23 Vancomycin Per PHA 07/07/25 In Process Pharmacy 08:30 Furosemide Injection PHA 07/07/25 In Process (Lasix Injection) 08:45 Bilat Lower Dvt US 07/07/25 Resulted 09:57 Visit Coding STANDARD RES Billing Provider: CHRISTINE MANCIA MD Date of Service if different f: Jul 07, 2025 Common Visit Codes: [id number] INP/OBS CARE(HIGH) LESLIE NOVOA RESIDENT Jul 07, 2025 12:20 CHILO MIRANDA RESIDENT Jul 07, 2025 21:26
--- NOTE | 2025-07-07 13:18 | DVH ---
US PARACENTESIS, HISTORY: ASCITES PROCEDURE: Informed consent was obtained. The patient was placed in supine position. A limited localization ultrasound of the abdomen was obtained, and the skin site over the largest pocket of fluid was marked and entry site was prepped with chlorhexidine which was allowed to dry and draped in the usual sterile fashion. Time out was performed. Following administration of 1% lidocaine local anesthetic, a 5 [place] centesis needle catheter was percutaneously inserted into the peritoneal collection until fluid was aspirated. The catheter was advanced into the fluid collection and the needle removed. About 3150 cc of fluid was aspirated and specimen sent for appropriate cultures/cytology/cultures and cy tology. The catheter was then removed and a sterile dressing applied. No immediate complication was identified. FINDINGS: Limited ultrasound imaging demonstrates mild to moderate ascites. Aspirated fluid was clear and serous. IMPRESSION: US-guided paracentesis with 3.2L removed.
[2025-07-07] MEDS: VANCOMYCIN 1GM/250ML KIT 250 ML IV ONE (13:39)
[2025-07-07] MEDS: MAGNESIUM SULFATE 1GM/100ML 100 ML IV ONE (15:04)
[2025-07-07] MEDS: FUROSEMIDE 20 MG/2 ML VIAL IV ONE (15:45)
[2025-07-07] MEDS: MAGNESIUM OXIDE 400 MG TAB PO ONE (17:54)
--- NOTE | 2025-07-07 23:32 | DVHPN2 ---
Subjective DOS: 07/07/2025 Patient seen and examined at bedside. Remains on supplemental oxygen Overnight events reviewed. Changes from previous H/P or p: No Changes Objective Vitals Vital Signs Date Time Temp Pulse Resp B/P (MAP) Pulse Ox O2 Delivery O2 Flow Rate FiO2 07/07/25 21:00 97.2 84 16 133/87 (102) 95 97.2 07/07/25 18:56 Nasal Cannula* 3 32 Intake/Output Intake and Output 07/07/25 07:00 Intake Total 0 ml Balance 0 ml Intake Oral 0 ml Exam Gen.: Patient lying in bed in no apparent distress. On supplemental oxygen. Head: Normocephalic, atraumatic. Eyes: EOMI/PERRLA. Ears: Normal hearing. Normal anatomy. Neck/trachea: Trachea midline, supple. Nose: Normal external anatomy. Mouth: Moist mucous membranes. Chest: Decreased air entry bilaterally. No wheezing or rhonchi. Cardiovascular: Positive S1, positive S2. Regular rate and rhythm. Abdomen: Positive bowel sounds in all 4 quadrants. Soft, non-tender, non- distended. : Deferred. Rectal: Deferred. Skin: Warm, dry. Intact. Extremities: 2+ radial pulses bilaterally. No lower extremity edema. Neuro: Awake, alert, oriented x3. No gross motor or sensory deficits. Cranial nerves II through XII intact. Gait not assessed. Medications Current Medications Medications Dose Ordered Sig/Darci Route Start Time Stop Time Status Last Admin Dose Admin Acetaminophen 650 mg Q6HP PRN PO 07/06/25 18:15 Acetaminophen/ Hydrocodone Bitart 1 tab Q4HP PRN PO 07/06/25 18:15 Ondansetron HCl 4 mg Q4HP PRN IV 07/06/25 18:15 Morphine Sulfate 2 mg Q4HPRN PRN IV 07/06/25 18:15 Ceftriaxone Sodium 50 ml @ 100 mls/hr DAILY@09 IV 07/06/25 18:15 07/07/25 10:57 100 MLS/HR Azithromycin 250 ml @ 125 mls/hr DAILY IV 07/07/25 10:00 07/07/25 11:02 125 MLS/HR Methylprednisolone Sodium Succinate 40 mg Q8HR IV 07/07/25 06:00 07/07/25 21:36 40 MG Pantoprazole Sodium 40 mg DAILY IV 07/07/25 10:00 07/07/25 10:58 40 MG Albuterol 2.5 mg Q6HWA [facility] 07/07/25 06:00 07/07/25 18:56 2.5 MG Ipratropium [place] 0.5 mg Q6HWA [facility] 07/07/25 06:00 07/07/25 18:56 0.5 MG Ergocalciferol 50,000 unit Q7D PO 07/07/25 08:15 07/07/25 10:58 50,000 UNIT Vancomycin HCl 0 ml @ 0 mls/hr PER PHARMACY IV 07/07/25 08:30 Furosemide 20 mg BIDD IV 07/07/25 08:45 07/07/25 17:54 20 MG Vancomycin HCl 250 ml @ 250 mls/hr Q12H IV 07/08/25 00:00 Diphenhydramine HCl 25 mg Q12HP PRN PO 07/07/25 16:00 Laboratory Results Laboratory Tests 07/07/25 06:00 07/07/25 06:41 Chemistry Test 07/07/25 06:00 Albumin 2.9 g/dL (3.2-4.8) L Calcium Level 8.5 mg/dL (8.7-10.4) L Magnesium Level 1.8 mg/dL (1.6-2.6) Phosphorus Level 4.7 mg/dL (2.4-5.1) Total Protein 7.4 g/dL (5.7-8.2) Coagulation Test 07/07/25 06:41 Prothrombin Time 12.6 sec (9.3-11.8) H Prothrombin Time INR 1.21 (0.9-1.15) H Activated Partial Thromboplast Time 30.6 SEC (24.5-34.5) Lipid panel Test 07/07/25 06:00 07/07/25 06:41 Cholesterol Level 77 mg/dL (< 200) 78 mg/dL (< 200) HDL Cholesterol 20 mg/dL (40-59) L 21 mg/dL (40-59) L Triglycerides Level 69 mg/dL (< 150) 67 mg/dL (< 150) LFT Test 07/07/25 06:00 Alanine Aminotransferase (ALT) 16 U/L (7-40) Alkaline Phosphatase 84 U/L (46-116) Aspartate Amino Transferase (AST) 31 U/L (13-40) Total Bilirubin 0.4 mg/dL (0.2-1.0) HgA1c, TSH Test 07/07/25 06:41 Thyroid Stimulating Hormone (TSH) 1.62 uIU/mL (0.55-4.78) Urinalysis Test 07/06/25 16:54 07/06/25 20:35 Urine Mucus Few (None Seen) Urine Color Colorless (Yellow) Urine Clarity Clear (Clear) Urine pH 5.0 (5.0-9.0) Urine Specific [place] 1.011 (1.001-1.035) Urine Protein Negative (Negative) Urine Ketones Negative (Negative) Urine Blood Negative /uL (Negative) Urine Nitrite Negative (Negative) Urine Bilirubin Negative (Negative) Urine Urobilinogen Normal mg/dL (Negative) Urine Leukocyte Esterase Negative /uL (Negative) Urine RBC <1 /hpf (0 - 4) Urine Microscopic WBC 1 /HPF (0-5) Urine Squamous Epithelial Cells Few /hpf (<5) Urine Bacteria None seen /hpf (None Seen) Urine Glucose Normal mg/dL (Normal) Blood Gas Results Test 07/07/25 08:34 Arterial Blood pH 7.349 (7.350-7.450) FiO2 % 28.0 Microbiology Microbiology Date/Time Source Procedure Growth Status 07/06/25 13:03 Blood Blood Culture - Preliminary NO GROWTH AFTER 24 HOURS OF INCUBATION. Resulted Assessment/Plan Assessment/Plan Impression: Acute hypoxic respiratory failure Lung mass Ascites Atelectasis Pneumonia Likely chronic obstructive pulmonary disease Nicotine dependence Events: Remains on supplemental oxygen, 3 LPM NC Taper O2 as tolerated Continue bronchodilators Continue antibiotics Incentive spirometry Consult IR for paracentesis IR for lung biopsy Nicotine replacement therapy Labs and imaging reviewed. Rest of plan as noted below. Plan: Supplemental oxygen Titrate to keep O2 sats above 92%. CXR reviewed, demonstrates Hyperinflation of the lungs with diffuse interstitial prominence which could be from fibrotic changes with patchy left upper to mid lung zone and right lower lung zone opacities which may represent areas of scarring. Underlying mass can not be excluded. Blunting of the left costophrenic angle which may be from atelectasis/ scarring/trace effusion. CT chest, abdomen and pelvis reviewed; reveals a 2.6 x 2.5 x 3.9 cm masslike density over the left lower lobe abutting the pleura. Patchy left upper lobe consolidation abutting the fissure may represent pneumonia/atelectasis with a mass lesion not excluded. Severe emphysematous changes of bilateral lungs with scattered bilateral lung atelectasis. Mediastinal lymphadenopathy which may be reactive or neoplastic. Large ascites with mesenteric edema. Dilatation of the pulmonary trunk. Correlate for pulmonary arterial hypertension. See report for full details. Continue bronchodilators. Continue antibiotics Incentive spirometry Send sputum cultures Consult IR for lung biopsy Consult IR for paracentesis. Smoking cessation discussed greater than 10 minutes - smokes 0.5 PPD currently with >30 pack year smoking history Diurese to euvolemia Monitor renal function. Monitor electrolytes. Supplement as necessary. Monitor ins and outs. DVT prophylaxis. Prognosis: Poor given patient's multiple co-morbidities. Rest of plan per hospitalist and other consultants. Thank you, Dr. Gaytan, for allowing me to participate in this patient's care. Further recommendations will depend on the patient's clinical course. Please do not hesitate to contact me if you have any questions or concerns. This medical document was created using an electronic medical record system with [employer] dictation system. Although these documentations are being carefully reviewed, there may still be some phonetic and typographical changes. The errors are purely typographical, due to imperfection on the software program, and do not reflect any compromise in the patient's medical care. Plan discussed with: Patient, Other (RN Dea) Visit Coding Pulmonary Billing Provider: KELLI SIDDIQUI MD Date of Service if different f: Jul 07, 2025 Common Visit Codes: [id number] INP/OBS CARE(HIGH) KELLI SIDDIQUI MD Jul 07, 2025 23:32
[2025-07-07] MEDS: VANCOMYCIN 1GM/250ML KIT 250 ML IV SCH (23:51)
[2025-07-08] VITALS (15 sets, daily range): BP systolic 99–124; BP diastolic 74–88; PULSE 51–117; RESP 14–19; TEMP 97.7–98.7; O2SAT 90–100
[2025-07-08 07:03] LABS: Hematocrit 41.4 % (36.0-46.0); Hemoglobin 13.2 g/dL (12.2-16.2); Mean Corpuscular Hemoglobin 29.2 pg (28.0-32.0); Mean Corpuscular Volume 91.7 fL (80.0-100.0); Nucleated Red Blood Cells % 0.3 %
[2025-07-08 07:16] LABS: Alanine Aminotransferase 18 U/L (7-40); Alkaline Phosphatase 87 U/L (46-116); Anion Gap 5 (5-15); BUN/Creatinine Ratio 14.5 (10.0-20.0); Blood Urea Nitrogen 10 mg/dL (9-23); Glucose 90 mg/dL (74-106); Potassium 4.6 mmol/L (3.5-5.1); Sodium 137 mmol/L (136-145); Total Protein 8.0 g/dL (5.7-8.2)
[2025-07-08 07:17] LABS: Bilirubin, Total 0.4 mg/dL (0.2-1.0)
[2025-07-08 07:18] LABS: Albumin 3.2 g/dL (3.2-4.8); Calcium 8.6 mg/dL (8.7-10.4); Carbon Dioxide 36 mmol/L (20-31); Chloride 96 mmol/L (98-107); Magnesium 1.6 mg/dL (1.6-2.6)
[2025-07-08 10:12] LABS: Base Excess 3.4 mmol/L (-2.0-3.0)
[2025-07-08 10:28] LABS: Hepatitis B Surface Antigen Negative (Negative)
[2025-07-08 10:55] LABS: Hepatitis C Antibody Negative (Negative)
[2025-07-08 11:07] LABS: Glucose, Body Fluid 141.0 mg/dL (.); LD, Body Fluid 114.0 IU/L (.)
[2025-07-08] MEDS: MAGNESIUM OXIDE 400 MG TAB PO SCH (12:28)
[2025-07-08] MEDS: FUROSEMIDE 20 MG/2 ML VIAL IV ONE (12:29)
--- NOTE | 2025-07-08 13:58 | DVHPNRES ---
Progress Note Date Seen: Jul 08, 2025 Resident Creating Document: LESLIE NOVOA RESIDENT Medical Necessity Reason Pt with a Central, PICC or Fol: No Subjective Review of Systems This is a 61-year-old female with COPD on home oxygen 2 L per, heart failure, depression, psoriasis, and active smoking who presents with one week of worsening shortness of breath accompanied by progressive bilateral leg swelling and abdominal distention. She reports that her breathing has deteriorated significantly compared to her baseline for last 1 week, and she becomes winded even with minimal activity. Patient also endorse cough with uses 4 times for same duration. Patient also reported having the abdominal distention and leg edema for more than 2 weeks. On 4 the included patient also reported having paracentesis almost 3 years before in [facility]. On arrival she was tachypneic, hypoxic on nasal cannula, and had diffuse wheezing and crackles. ABG showed acute on chronic hypercapnic respiratory failure (pH 7.31, pCO2 64), and BiPAP was initiated. Of the lab workup revealed WBCs 12.1, UDS positive for cocaine, BNP 7 1, troponin I 160> 160> 171. TSH is 1.6. Abdominal US shows ascites, chest x-ray shows bilateral fibrotic changes, bilateral patchy opacity. CT chest/abdomen/pelvis with contrast demonstrated severe emphysematous changes, atelectasis with a possible mass lesion, and right-sided lymphadenopathy concerning for malignancy. The study also showed dilated pulmonary artery, right atrial and ventricular enlargement, hepatomegaly with periportal edema, mesenteric edema, body wall edema, and large ascites, consistent with pulmonary hypertension and systemic volume overload. Also esophageal thickening. Chest x-ray- Hyperinflation of the lungs with diffuse interstitial prominence which could be from fibrotic changes with patchy left upper to mid lung zone and right lower lung zone opacities which may represent areas of scarring. Doppler study of the lower extremity negative for DVT. Past Medical History-COPD on home O2, heart failure, depression, psoriasis. Past Surgical History-No surgeries reported. Medications-Fluticasone inhaler, albuterol inhaler, nicotine patch, clobetasol cream, potassium chloride, atorvastatin, famotidine, sertraline, ibuprofen. Social History-Lives at home. Active smoker. Denies alcohol or illicit drugs. Lives with son Allergy NKDA PCP Dr. Morgan Patient was seen today at bedside Labs and chart reviewed WBC trending up likely due to steroid Repeat ABG 2D on 07/08/2025 pH 7.348, pCO2 56.7, PO2 68.1, bicarb 30.5, likely patient is a chronic retainer of carbon dioxide due to COPD Pending echo 2D report Increase Lasix from 20 mg to 40 mg IV b.i.d. Patient with a persistent lung crackles and bilateral leg edema Urine culture no growth Blood culture no growth Ascitic fluid no growth so far Ascitic fluid study revealed transudative fluid likely from heart failure Spoke to patient's sister Shayy, , discussed patient's current medical condition, plan of care, answered questions Objective vital signs Vital Sign Date Time Temp Pulse Resp B/P (MAP) Pulse Ox O2 Delivery O2 Flow Rate FiO2 07/08/25 13:00 98.0 62 17 99/74 (82) 94 98.0 07/08/25 11:24 Nasal Cannula 3.0 07/08/25 11:24 32 Total Intake and Output 07/07/25 07/07/25 07/08/25 15:00 23:00 07:00 Intake Total 900 ml 800 ml Balance 900 ml 800 ml medications Current Medications Medications Dose Ordered Sig/Darci Route Start Time Stop Time Status Last Admin Dose Admin Acetaminophen 650 mg Q6HP PRN PO 07/06/25 18:15 Acetaminophen/ Hydrocodone Bitart 1 tab Q4HP PRN PO 07/06/25 18:15 Ondansetron HCl 4 mg Q4HP PRN IV 07/06/25 18:15 Morphine Sulfate 2 mg Q4HPRN PRN IV 07/06/25 18:15 Ceftriaxone Sodium 50 ml @ 100 mls/hr DAILY@09 IV 07/06/25 18:15 07/08/25 09:41 100 MLS/HR Azithromycin 250 ml @ 125 mls/hr DAILY IV 07/07/25 10:00 07/07/25 11:02 125 MLS/HR Methylprednisolone Sodium Succinate 40 mg Q8HR IV 07/07/25 06:00 07/08/25 05:48 40 MG Pantoprazole Sodium 40 mg DAILY IV 07/07/25 10:00 07/08/25 09:47 40 MG Albuterol 2.5 mg Q6HWA NEB 07/07/25 06:00 07/08/25 12:32 2.5 MG Ipratropium [place] 0.5 mg Q6HWA NEB 07/07/25 06:00 07/08/25 12:32 0.5 MG Ergocalciferol 50,000 unit Q7D PO 07/07/25 08:15 07/07/25 10:58 50,000 UNIT Vancomycin HCl 0 ml @ 0 mls/hr PER PHARMACY IV 07/07/25 08:30 Vancomycin HCl 250 ml @ 250 mls/hr Q12H IV 07/08/25 00:00 07/08/25 12:36 250 MLS/HR Diphenhydramine HCl 25 mg Q12HP PRN PO 07/07/25 16:00 07/08/25 09:47 25 MG Magnesium Oxide 800 mg BID PO 07/08/25 09:15 07/08/25 12:28 800 MG Furosemide 40 mg BIDD IV 07/08/25 18:00 Examination General examination- awake, alert HEENT- PEERLA, no acute nasal discharge Cardiovascular- S1-S2 audible, rate and rhythm regular, no murmur Respiratory- diminished breath sounds, bilateral lung crackles, Gastrointestinal-distended abdomen, ascites present+++ Musculoskeletal-no acute joint swelling or tenderness or redness Lower extremity- bilateral leg edema+++ Neurological- cranial nerves intact, no acute dysarthria or dysphagia Psychiatry- denies depression or SI or HI Skin- no acute rash or purpura laboratory and microbiology Laboratory Tests 07/08/25 06:15 Test 07/08/25 06:15 Range/Units Serum Glucose 90 74-106 mg/dL Microbiology Date/Time Source Procedure Growth Status 07/07/25 20:35 Voided Urine Urine Culture - Preliminary Resulted 07/07/25 13:00 Ascities Fluid Gram Stain - Final Resulted 07/07/25 13:00 Ascities Fluid Body Fluid Culture - Preliminary No growth Resulted 07/06/25 13:03 Blood Blood Culture - Preliminary NO GROWTH AFTER 48 HOURS OF INCUBATION. Resulted Problem List/Assessment/Plan Problem List/Assessment/Plan Assessment and plan # acute on chronic hypoxic and hypercapnic respiratory failure likely due to acute exertional COPD # acute pneumonia Gram-positive versus Gram-negative # emphysematous lung # suspected left lung -pulmonary on board-recommended for IR for lung biopsy and paracentesis -continue nebulization as prescribed -on ceftriaxone and azithromycin -continue methylprednisolone as prescribed -pending blood culture, urine culture, sputum culture # acute on chronic heart failure systolic versus diastolic # anasarca # suspected pulmonary hypertension # bilateral leg edema likely due to above -continue Lasix 40 mg IV b.i.d. -continue nebulization as prescribed -Status post paracentesis by IR, 3.1 L of darinel colored fluid was removed. -ascitic fluid study reveals transudative fluid -pending echo 2D -strict I&O #NSTEMI type 2 likely due to demand lead ischemia -pending echo 2D --continue current conservative management # suspected pulmonary mass/neoplasm # mediastinal lymphadenopathy -pulmonary on board -Patient was seen by Radiology for possible lung biopsy, reduced recommended for outpatient PET scan before deciding if patient needs any lying biopsy are not due to emphysema. # depression -resume home medication # psoriasis -continue current management #Substance abuse, -UDS positive for cocaine -counseled about the effect of substance abuse and also effect of smoking on health Goals of care, Code status full code ; PUD prophylaxis: Pantoprazole DVT prophylaxis: Lovenox Plan discussed with Dr. Mancia, nursing staff, Total time spent on patient evaluation, chart review, assessment and plan, discussion discussion >35 minutes Plan discussed with: Patient, Other (RN, sister) My Orders My Orders Orders - LESLIE NOVOA Procedure Category Date Status Time Vancomycin 1gm/250ml PHA 07/08/25 In Process Kit 00:00 Vancomycin,Trough LAB 07/08/25 Logged 23:00 Vancomycin Per THOM 07/09/25 In Process Pharmacy Protoc 00:00 Diphenhydramine PHA 07/07/25 In Process Capsule (Benadryl 16:00 Cardiac DIET 07/07/25 Transmitted Diet-2gna,Lofat,Lochol Dinner Electrocardigram EKG 07/08/25 Logged 09:07 Magnesium Oxide PHA 07/08/25 In Process Tablet (Mag-Ox Tablet) 09:15 Abg W/ Co-Ox RT 07/08/25 Logged 09:12 Furosemide Injection PHA 07/08/25 In Process (Lasix Injection) 18:00 Visit Coding STANDARD RES Billing Provider: CHRISTINE MANCIA MD Date of Service if different f: Jul 08, 2025 Common Visit Codes: [id number] INP/OBS CARE(HIGH) LESLIE NOVOA RESIDENT Jul 08, 2025 13:58
--- NOTE | 2025-07-08 14:23 | DVHDSRES ---
Discharge Summary Date of Admission Resident Creating Document: LESLIE NOVOA RESIDENT Jul 06, 2025 at 18:13 Date of Discharge: Jul 08, 2025 Admitting Diagnosis Elective surgery for right total hip replacement History of bilateral hip repair Multiple mechanical falls with no loss of consciousness Labs/Diagnostic Data: Laboratory Results Test 07/08/25 09:55 07/08/25 06:15 07/07/25 13:00 07/07/25 06:41 Blood Gas Specimen Type Arterial Blood Gas Sample Site Left radial Blood Gas Patient Temperature 37.0 Arterial Blood Date Drawn [id number] Arterial Blood pH 7.348 (7.350-7.450) Arterial Blood Partial Pressure CO2 56.7 mmHg (32.0-45.0) Arterial Blood Partial Pressure O2 68.1 mmHg (83.0-108.0) Arterial Blood HCO3 30.5 mmol/L (21.0-28.0) Arterial Blood Oxygen Saturation 91.5 % (94.0-98.0) Arterial Blood Base Excess 3.4 mmol/L (-2.0-3.0) Arterial Blood Oxyhemoglobin 90.0 % (94.0-98.0) Arterial Blood Carboxyhemoglobin 1.4 % (0.5-1.5) Arterial Blood Methemoglobin 0.2 % (0.0-1.5) Arterial Blood Deoxyhemoglobin 8.4 % (0.0-5.0) Gino Test Positive Blood Gas Total Hemoglobin 13.80 g/dL (12.0-16.0) Blood Gas Liter Flow 3.00 Blood Gas Modality Nasal cannula FiO2 % 32.0 White Blood Count 11.3 10^3/uL (4.4-10.8) Red Blood Count 4.51 10^6/uL (4.0-5.20) Hemoglobin 13.2 g/dL (12.2-16.2) Hematocrit 41.4 % (36.0-46.0) Mean Corpuscular Volume 91.7 fL (80.0-100.0) Mean Corpuscular Hemoglobin 29.2 pg (28.0-32.0) Mean Corpuscular Hemoglobin Concent 31.9 g/dL (32.0-36.0) Red Cell Distribution Width 16.8 % (11.8-14.3) Platelet Count 174 10^3/uL (140-450) Mean Platelet Volume 9.2 fL (6.9-10.8) Neutrophils (%) (Auto) 85.9 % (37.0-80.0) Lymphocytes (%) (Auto) 11.4 % (10.0-50.0) Monocytes (%) (Auto) 2.5 % (0.0-12.0) Eosinophils (%) (Auto) 0.0 % (0.0-7.0) Basophils (%) (Auto) 0.2 % (0.0-2.0) Neutrophils # (Auto) 9.7 10 ^3/uL (1.6-8.6) Lymphocytes # (Auto) 1.3 10 ^3/uL (0.4-5.4) Monocytes # (Auto) 0.3 10 ^3/uL (0-1.3) Eosinophils # (Auto) 0 10 ^3/uL (0-0.8) Basophils # (Auto) 0 10 ^3/uL (0-0.2) Nucleated Red Blood Cells 0.3 % Sodium Level 137 mmol/L (136-145) Potassium Level 4.6 mmol/L (3.5-5.1) Chloride Level 96 mmol/L (98-107) Carbon Dioxide Level 36 mmol/L (20-31) Anion Gap 5 (5-15) Blood Urea Nitrogen 10 mg/dL (9-23) Creatinine 0.69 mg/dL (0.550-1.02) Glomerular Filtration Rate Calc 98 mL/min (>90) BUN/Creatinine Ratio 14.5 (10.0-20.0) Serum Glucose 90 mg/dL (74-106) Calcium Level 8.6 mg/dL (8.7-10.4) Phosphorus Level 3.3 mg/dL (2.4-5.1) Magnesium Level 1.6 mg/dL (1.6-2.6) Total Bilirubin 0.4 mg/dL (0.2-1.0) Aspartate Amino Transferase (AST) 33 U/L (13-40) Alanine Aminotransferase (ALT) 18 U/L (7-40) Alkaline Phosphatase 87 U/L (46-116) Total Protein 8.0 g/dL (5.7-8.2) Albumin 3.2 g/dL (3.2-4.8) Body Fluid Source Peritoneal fluid Body Fluid pH 8.0 Body Fluid WBC (Manual) 441 CUMM (0-200) Body Fluid RBC (Manual) 6062 CUMM (0-2000) Body Fluid Mononuclear Cells 91 % Body Fluid Polymorphonuclear Cells 9 % (0-25) Body Fluid Glucose 141 mg/dL (.) Body Fluid Total Protein 2.7 g/dL (.) Body Fluid Lactate Dehydrogenase 114 IU/L (.) Prothrombin Time 12.6 sec (9.3-11.8) Prothrombin Time INR 1.21 (0.9-1.15) Activated Partial Thromboplast Time 30.6 SEC (24.5-34.5) Lactic Acid Level 1.8 mmol/L (0.4-2.0) Triglycerides Level 67 mg/dL (< 150) Cholesterol Level 78 mg/dL (< 200) LDL Cholesterol 47 mg/dL (< 100) HDL Cholesterol 21 mg/dL (40-59) Vitamin B12 Level 275 pg/mL (211-911) Vitamin D 25-Hydroxy 18.3 ng/mL (30.0-100) Folic Acid 9.38 ng/mL (>5.38) Thyroid Stimulating Hormone (TSH) 1.62 uIU/mL (0.55-4.78) Hepatitis A IgM Antibody Negative Hepatitis B Surface Antigen Negative (Negative) Hepatitis B Core IgM Antibody Negative (Negative) Hepatitis C Antibody Negative (Negative) Test 07/06/25 20:35 07/06/25 18:43 07/06/25 16:54 07/06/25 15:55 Urine Color Colorless (Yellow) Urine Clarity Clear (Clear) Urine pH 5.0 (5.0-9.0) Urine Specific Henderson 1.011 (1.001-1.035) Urine Protein Negative (Negative) Urine Ketones Negative (Negative) Urine Blood Negative /uL (Negative) Urine Nitrite Negative (Negative) Urine Bilirubin Negative (Negative) Urine Urobilinogen Normal mg/dL (Negative) Urine Leukocyte Esterase Negative /uL (Negative) Urine RBC <1 /hpf (0 - 4) Urine Microscopic WBC 1 /HPF (0-5) Urine Squamous Epithelial Cells Few /hpf (<5) Urine Bacteria None seen /hpf (None Seen) Urine Glucose Normal mg/dL (Normal) Urine Opiates Screen Neg (NEGATIVE) Urine Fentanyl Screen Neg (NEGATIVE) Urine Barbiturates Screen Neg (NEGATIVE) Urine Phencyclidine Screen Neg (NEGATIVE) Urine Amphetamines Screen Neg (NEGATIVE) Urine Benzodiazepines Screen Neg (NEGATIVE) Urine Cocaine Screen Pos (NEGATIVE) Urine Cannabinoids Screen Neg (NEGATIVE) Influenza Type A Antigen Negative (Negative) Influenza Type B Antigen Negative (Negative) SARS-CoV-2 Antigen (Rapid) Negative (NEGATIVE) Blood Gas Critical Value Read Back Yes Blood Gas Notified Whom dori Aguilera Blood Gas Notified Time [id number] Blood Gas Notified By Recreation Facility Attendant yves ray Urine Mucus Few (None Seen) Troponin I High Sensitivity 171 ng/L (</=34) Test 07/06/25 13:47 07/06/25 12:50 Lipase 19 U/L (12-53) Hemoglobin A1c 6.4 % A1C (<5.7) B-Type Natriuretic Peptide 701.28 pg/mL (0-100) Other Laboratory Tests 07/08/25 06:15 Brief Hx & Hospital Course: Kori Rosenbaum is a 84-year-old female patient who presents to the ED with chief complaint of requirement of admission due to elective right total hip replacement surgery (patient has rods placed which have to be exchange) with previous medical clearance. Patient was seen the outpatient clinic by Dr. Olivares who completed stress test. Patient denies any symptoms. Patient is s/p Right hip hardware removal with conversion to right total hip arthroplasty. Patient had 1 unit of blood transfusion which was expected status post surgical intervention. Hemoglobin stable Hemodynamically stable today. Physical therapy evaluation was done recommended for SNF for physical therapy. Patient is being discharged in hemodynamically stable condition. Patient was advised to follow up with the MD at SNF/PCP/orthopedic surgeon. All questions answered. General examination- awake, alert HEENT- PEERLA, no acute nasal discharge Cardiovascular- S1-S2 audible, rate and rhythm regular, no murmur Respiratory- CTAB, no wheeze or rhonchi Gastrointestinal-nontender, bowel sound+. Nondistended Musculoskeletal-no acute joint swelling or tenderness or redness Lower extremity- right lower extremity hip bandage Neurological- cranial nerves intact, no acute dysarthria or dysphagia Psychiatry- denies depression or SI or HI Skin- no acute rash or purpura Plan of care discussed with Dr. Mark Consults/Reason for consult Patient: KORI ROSENBAUM Acct: [id number] : 06/08/1941 Loc: [facility] Age/Sex: 84/F Room: [facility] / Bed: A Attending Phy: LESLIE NOVOA RESIDENT OPERATIVE REPORT ADDENDUM Name: KORI ROSENBAUM Acct: [id number] Addendum: JHONATAN MITCHELL DO on 07/06/25 @ 14:21 Alfonzo was the Balloon Design Printer for this case _ ____ ADDENDUM ELECTRONICALLY SIGNED BY: Operative Report - 2 Report Details Date: 07/06/25 Preop Diagnosis: Failed Right Femoral Neck/basicervical ORIF Postop Diagnosis: Same Surgeon: Jhonatan Mitchell MD Anesthesiologist: Cindy LIRA Anesthesia: Local, Regional Consent: The patient was informed of the risks and benefits of the procedure. These include but are not limited to complications of anesthesia, postoperative infection, incomplete relief of symptoms, recurrence of symptoms, damage to blood vessels, nerves and tendons, deep venous thrombosis, pulmonary embolism and possible need for repeat surgery in the future. Name of Procedure Performed Complex Hip Hemiarthroplasty using a redapt, diaphyseal engaging stem, cable. Removal of hardware, application of wound vac Procedure Details Procedure Details: After preoperative verification and anesthesia induction, the patient was positioned in the lateral decubitus position with appropriate padding. The operative site was prepped and draped in the standard sterile fashion. A new incision was made to optimize exposure, as the previous incision could not be utilized. Dissection was carried through subcutaneous tissue and fascia. A posterior greater trochanter resection osteotomy was performed to facilitate access to the proximal femur and hardware. The three previously placed screws were identified and carefully removed. Attention was then directed to the femur. 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 We then locations and cannulated the femoral canal, which was incrementally reamed up to 17 mm to accommodate the Redapt diaphyseal engaging stem. The stem was trailed and then implanted for stable diaphyseal fixation. . The hip was reduced, and stability and leg length were assessed and confirmed. The wound was irrigated thoroughly and hemostasis was achieved. The capsule and short external rotators were repaired with #5 FiberWire. The fascia was closed with #1 absorbable suture, subcutaneous tissue with 2-0 absorbable suture, and the skin with estuardo. A wound vacuum-assisted closure (VAC) dressing was applied. The patient was transferred to the recovery room in stable condition. Condition Fair Disposition 2 Still a Patient JHONATAN MITCHELL DO Jul 06, 2025 14:09 DICTATED BY:JHONATAN MITCHELL DO DICTATED DATE/TIME:07/06/251408 ELECTRONICALLY SIGNED BY:JHONATAN MITCHELL DO 07/06/251408 ELECTRONICALLY CO-SIGNED BY: Patient: KORI ROSEBNAUM Acct: [id number] : 06/08/1941 Loc: [facility] Age/Sex: 84/F Room: [facility] / Bed: A Attending Phy: LESLIE NOVOA RESIDENT OPERATIVE REPORT ADDENDUM Name: KORI ROSENBAUM Acct: [id number] Addendum: JHONATAN MITCHELL DO on 07/06/25 @ 14:21 Alfonzo was the Balloon Design Printer for this case _ ____ ADDENDUM ELECTRONICALLY SIGNED BY: Operative Report - 2 Report Details Date: 07/06/25 Preop Diagnosis: Failed Right Femoral Neck/basicervical ORIF Postop Diagnosis: Same Surgeon: Jhonatan Mitchell MD Anesthesiologist: Cindy LIRA Anesthesia: Local, Regional Consent: The patient was informed of the risks and benefits of the procedure. These include but are not limited to complications of anesthesia, postoperative infection, incomplete relief of symptoms, recurrence of symptoms, damage to blood vessels, nerves and tendons, deep venous thrombosis, pulmonary embolism and possible need for repeat surgery in the future. Name of Procedure Performed Complex Hip Hemiarthroplasty using a redapt, diaphyseal engaging stem, cable. Removal of hardware, application of wound vac Procedure Details Procedure Details: After preoperative verification and anesthesia induction, the patient was positioned in the lateral decubitus position with appropriate padding. The operative site was prepped and draped in the standard sterile fashion. A new incision was made to optimize exposure, as the previous incision could not be utilized. Dissection was carried through subcutaneous tissue and fascia. A posterior greater trochanter resection osteotomy was performed to facilitate access to the proximal femur and hardware. The three previously placed screws were identified and carefully removed. Attention was then directed to the femur. 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 We then locations and cannulated the femoral canal, which was incrementally reamed up to 17 mm to accommodate the Redapt diaphyseal engaging stem. The stem was trailed and then implanted for stable diaphyseal fixation. . The hip was reduced, and stability and leg length were assessed and confirmed. The wound was irrigated thoroughly and hemostasis was achieved. The capsule and short external rotators were repaired with #5 FiberWire. The fascia was closed with #1 absorbable suture, subcutaneous tissue with 2-0 absorbable suture, and the skin with estuardo. A wound vacuum-assisted closure (VAC) dressing was applied. The patient was transferred to the recovery room in stable condition. Condition Fair Disposition 2 Still a Patient JHONATAN MITCHELL DO Jul 06, 2025 14:09 DICTATED BY:JHONATAN MITCHELL DO DICTATED DATE/TIME:07/06/251408 ELECTRONICALLY SIGNED BY:JHONATAN MITCHELL DO 07/06/251408 ELECTRONICALLY CO-SIGNED BY: Patient Name: KORI ROSENBAUM Acct: [id number] Room: [facility] /Bed: A Attending Physician: NEELA ALVAREZ DNP Loc: [facility] Unit: [id number] CONSULTATION REPORT . ................................................................................ ............................................................................... Date of service: Jul 05, 2025 Reason for Consultation Right hip pain , hx of ORIF with outside provider History of Present Illness 84 yo F sp ORIF right hip a few months ago with outside provider with continued pain/swelling/inability to bear weight on right leg. Patient unable to bear weight onto that side. No cp/sob/abd pain/nausea/vomiting. Past Medical History osteoporosis Family History: Patient reports no known family medical history. Allergies: Coded Allergies: Memantine (Verified Allergy, Severe, 11/02/23) Home Meds Active Scripts Calamine (Calamine) 1 Lot Lot, 1 LOT EX BIDPRN PRN for 10 Days, #1 BOTTLE Prov:GABRIEL ECHEVARRIA RESIDENT 02/18/25 Meloxicam (Meloxicam) 7.5 Mg Tab, 7.5 MG PO DAILY PRN, #30 TAB Prov:ALEX OAKLEY AUTOMATIC SERGING MACHINE OPERATOR 11/02/23 Reported Medications Acetaminophen W/ Codeine (Acetaminophen/Codeine) 1 Tab Tab, 1 TAB PO TID, #90 TAB 07/04/25 Prednisone (PREDNISONE) 1 Mg Tb, 5 MG PO DAILY, TAB 07/04/25 Aspirin (Aspirin Low Dose) 81 Mg Chw, 1 TAB PO DAILY, #30 TAB 3 Refills 07/04/25 Cholecalciferol (VITAMIN D3) 2,000 Unit Tab, 50 MCG PO DAILY, TAB 07/04/25 Ferrous Sulfate (FERROUS SULFATE) 325 Mg Tb, 1 TAB PO DAILY, #30 TAB 3 Refills 07/04/25 Potassium Chloride (Potassium Chloride ER) 20 Meq Tab, 20 MEQ PO DAILY, TAB 07/04/25 Rivaroxaban (XARELTO) 20 Mg Tab, 2.5 MG PO BID, TAB 07/04/25 Carvedilol (Carvedilol) 3.125 Mg Tab, 1 TAB PO BID, #60 TAB 3 Refills 07/04/25 Sildenafil Citrate (Viagra) 50 Mg Tab, 25 MG PO BID, TAB 07/04/25 Amlodipine Besylate (Amlodipine Besylate) 10 Mg Tab, 1 TAB PO DAILY 01/26/25 Hydroxyzine Hcl (Hydroxyzine Hcl) 25 Mg Tab, 1 TAB PO HS 01/26/25 Bumetanide (Bumetanide) 1 Mg Tab, 1 TAB PO BID 01/26/25 Alendronate Sodium (Alendronate Sodium) 70 Mg Tab, 1 TAB PO QWEEKLY 01/26/25 Prednisone (Prednisone) 5 Mg Tab, 1 TAB PO DAILY 01/26/25 Current Medications Current Medications Medications (Trade) Dose Ordered Sig/Darci Route PRN Reason Start Time Stop Time Status Last Admin Amlodipine Besylate (Norvasc Tablet) 5 mg DAILY PO 07/05/25 10:00 Enoxaparin Sodium (Lovenox) 40 mg DAILY SC 07/05/25 10:00 07/05/25 10:00 Ferrous Sulfate 325 mg DAILY PO 07/05/25 10:00 07/05/25 10:00 Vital Signs Vital Signs Date Time Temp Pulse Resp B/P (MAP) Pulse Ox O2 Delivery O2 Flow Rate FiO2 07/06/25 05:00 98.4 85 19 125/83 (97) 96 98.4 07/05/25 20:00 Room Air* 0 21 Labs/Diagnostic Data Labs Test 07/06/25 06:46 07/05/25 23:10 07/05/25 20:57 07/05/25 20:17 Range/Units White Blood Count 12.4 #H 4.4-10.8 10^3/uL Red Blood Count 3.27 L 4.0-5.20 10^6/uL Hemoglobin 10.0 L 12.2-16.2 g/dL Hematocrit 30.9 #L 36.0-46.0 % Mean Corpuscular Volume 94.4 80.0-100.0 fL Mean Corpuscular Hemoglobin 30.4 28.0-32.0 pg Mean Corpuscular Hemoglobin Concent 32.2 32.0-36.0 g/dL Red Cell Distribution Width 31.0 H 11.8-14.3 % Platelet Count 294 140-450 10^3/uL Mean Platelet Volume 6.8 L 6.9-10.8 fL Neutrophils (%) (Auto) 37.0-80.0 % Lymphocytes (%) (Auto) 10.0-50.0 % Monocytes (%) (Auto) 0.0-12.0 % Eosinophils (%) (Auto) 0.0-7.0 % Basophils (%) (Auto) 0.0-2.0 % Neutrophils # (Auto) 1.6-8.6 10 ^3/uL Lymphocytes # (Auto) 0.4-5.4 10 ^3/uL Monocytes # (Auto) 0-1.3 10 ^3/uL Sodium Level 141 136-145 mmol/L Potassium Level 4.8 3.5-5.1 mmol/L Chloride Level 108 H 98-107 mmol/L Carbon Dioxide Level 25 20-31 mmol/L Anion Gap 8 5-15 Blood Urea Nitrogen 31 H 9-23 mg/dL Creatinine 0.97 0.550-1.02 mg/dL Glomerular Filtration Rate Calc 57 >90 mL/min BUN/Creatinine Ratio 32.0 H 10.0-20.0 Serum Glucose 84 74-106 mg/dL Calcium Level 9.2 8.7-10.4 mg/dL Urine Color Light-yellow Yellow Urine Clarity Clear Clear Urine pH 6.5 5.0-9.0 Urine Specific Henderson 1.024 1.001-1.035 Urine Protein Negative Negative Urine Ketones Negative Negative Urine Blood Negative Negative /uL Urine Nitrite Negative Negative Urine Bilirubin Negative Negative Urine Urobilinogen Normal Negative mg/dL Urine Leukocyte Esterase 1+ Negative /uL Urine RBC None seen 0 - 4 /hpf Urine Microscopic WBC 7 H 0-5 /HPF Urine Squamous Epithelial Cells Few <5 /hpf Urine Bacteria None seen None Seen /hpf Urine Glucose Normal Normal mg/dL Urine Opiates Screen Neg NEGATIVE Urine Fentanyl Screen Neg NEGATIVE Urine Barbiturates Screen Neg NEGATIVE Urine Phencyclidine Screen Neg NEGATIVE Urine Amphetamines Screen Neg NEGATIVE Urine Benzodiazepines Screen Neg NEGATIVE Urine Cocaine Screen Neg NEGATIVE Urine Cannabinoids Screen Neg NEGATIVE Stool for White Cells None seen HIV (1&2) Antibody Negative Negative Test 07/05/25 10:45 07/05/25 05:13 07/04/25 14:06 Range/Units Prothrombin Time 11.5 9.3-11.8 sec Prothrombin Time INR 1.09 0.9-1.15 Activated Partial Thromboplast Time 26.8 24.5-34.5 SEC Nucleated Red Blood Cells 5.0 % Poikilocytosis (manual) Slight Anisocytosis (manual) Marked Target Cells Few Tear Drop Cells Few Ovalocytes Moderate Schistocytes Moderate Hemoglobin A1c 6.1 H <5.7 % A1C Phosphorus Level 4.2 2.4-5.1 mg/dL Magnesium Level 2.3 1.6-2.6 mg/dL Total Bilirubin 0.5 0.2-1.0 mg/dL Aspartate Amino Transferase (AST) 25 13-40 U/L Alanine Aminotransferase (ALT) 12 7-40 U/L Alkaline Phosphatase 81 46-116 U/L Total Protein 6.1 5.7-8.2 g/dL Albumin 3.4 3.2-4.8 g/dL Vitamin B12 Level 539 211-911 pg/mL Vitamin D 25-Hydroxy 52.2 30.0-100 ng/mL Thyroid Stimulating Hormone (TSH) 1.76 0.55-4.78 uIU/mL Troponin I High Sensitivity 5 </=34 ng/L Plan/Recommendation 84 yo F with failed ORIF right hip with right hip femoral neck fracture 1. Discussed hardware removal with conversion to right total hip arthroplasty as patient continues to be wheelchair bound and losing quality of life - Failed CRPP of hip -- patient will require arthroplasty surgery 2. Risk benefits options and alternatives reviewed in depth. RIsks include but not exclusive to bleeding infection nerve injury hardware failure leg length discrepancy blood clots cardiac and pulmonary complications dislocation amputation and . Patient and family understand the morbidity and mortality of surgery and wish to proceed plan for right hip arthroplasty, hardware removal with Dr. Mitchell/Camilo 3. npo/ivf 4. pain control Plan discussed with: Patient, Daughter LINDA PAZ MD Jul 06, 2025 08:18 DICTATED BY:LINDA PAZ MD DICTATED DATE/TIME:07/06/25817 ELECTRONICALLY SIGNED BY:LINDA PAZ MD 07/06/25817 ELECTRONICALLY CO-SIGNED BY: Operations or Procedures [place] [id number] Ph: [phone] DIAGNOSTIC IMAGING Diagnostic Imaging Report : [id number] Signed PATIENT: KORI ROSENBAUM ACCT: [id number] UNIT: [id number] : 06/08/1941 LOC[facility] AGE / SEX: 84 / F ADM STATUS: ADM IN SERVICE 0939 ORDERING PHYSICIAN: CHILO MIRANDA RESIDENT PROCEDURE(s): LHIP - L HIP COMPLETE XRAY REASON: Hip fracture ORDER NUMBER(s): [id number], ACCESSION NUMBER(s): [id number] vilateral HIP RADIOGRAPH. CLINICAL INDICATION: Hip fracture TECHNIQUE: 4 views of the bilatearl hip were obtained. FINDINGS: Post surgical changes bilateral femurs with 3 surgical screws right proximal femur and intramedullar ambrocio and screws in left femur. There is no evidence of fracture, subluxation or dislocation.The alignment is within normal limits.The bony mineralization is normal.No radiopaque foreign body is identified. IMPRESSION: 1. No evidence of acute bony injury. ATED BY: ILEANA PAZ MD DICTATED DATE/TIME: 07/05/251118 SIGNED BY: ILEANA PAZ MD SIGNED DATE/TIME: 07/05/25 111 CC: [place] [id number] Ph: [phone] DIAGNOSTIC IMAGING Diagnostic Imaging Report : [id number] Signed PATIENT: KORI ROSENBAUM ACCT: [id number] UNIT: [id number] : 06/08/1941 LOC: [facility] ROOM / BED: [facility] / A AGE / SEX: 84 / F ADM STATUS: ADM IN SERVICE 8 ORDERING PHYSICIAN: CHILO MIRANDA RESIDENT PROCEDURE(s): RHIP - R HIP COMPLETE XRAY REASON: Hip fracture ORDER NUMBER(s): [id number], ACCESSION NUMBER(s): [id number] vilateral HIP RADIOGRAPH. CLINICAL INDICATION: Hip fracture TECHNIQUE: 4 views of the bilatearl hip were obtained. FINDINGS: Post surgical changes bilateral femurs with 3 surgical screws right proximal femur and intramedullar ambrocio and screws in left femur. There is no evidence of fracture, subluxation or dislocation.The alignment is within normal limits.The bony mineralization is normal.No radiopaque foreign body is identified. IMPRESSION: 1. No evidence of acute bony injury. ATED BY: ILEANA PAZ MD DICTATED DATE/TIME: 07/05/25 1119 SIGNED BY: ILEANA PAZ MD SIGNED DATE/TIME: 07/05/25 1119 CC: [place] [id number] Ph: [phone] DIAGNOSTIC IMAGING Diagnostic Imaging Report : [id number] Signed PATIENT: KORI ROSENBAUM ACCT: [id number] UNIT: [id number] : 06/08/1941 LOC: [facility] AGE / SEX: 84 / F ADM STATUS: ADM IN SERVICE 111 ORDERING PHYSICIAN: CHILO MIRANDA PROCEDURE(s): RKN3 - R KNEE 3V XRAY REASON: HIP FX ORDER NUMBER(s): [id number], ACCESSION NUMBER(s): [id number] CLINICAL INDICATION: HIP FX TECHNIQUE: XY R KNEE 3V XRAY Comparison: XR KNEE LEFT 3 VIEW on DOS: 01/21/25 FINDINGS: XR KNEE LEFT 3 VIEW on DOS Bones: Joint space chondrocalcinosis is present. Alignment: No acute fracture or dislocation. Joint Spaces: Moderate to severe lateral degenerative joint space narrowing. Moderate patellofemoral degenerative joint space narrowing. Soft Tissues: No significant soft tissue abnormality. IMPRESSION: 1. No acute fracture or dislocation. 2. Degenerative changes. ATED BY: CORDELL NAZARIO MD DICTATED DATE/TIME: 07/05/25 1200 SIGNED BY: CORDELL NAZARIO MD SIGNED DATE/TIME: 07/05/25 1200 CC: [place] [id number] Ph: [phone] DIAGNOSTIC IMAGING Diagnostic Imaging Report : [id number] Signed PATIENT: KORI ROSENBAUM ACCT: [id number] UNIT: [id number] : 06/08/1941 LOC: [facility] AGE / SEX: 84 / F ADM STATUS: ADM IN SERVICE 1147 ORDERING PHYSICIAN: LINDA PAZ MD PROCEDURE(s): CXR1 - CHEST XRAY 1 VIEW REASON: cad ORDER NUMBER(s): [id number], ACCESSION NUMBER(s): [id number] CLINICAL INFORMATION: Coronary artery disease. TECHNIQUE: Single AP portable chest radiograph was obtained. COMPARISON: XY CHEST PORTABLE on DOS: 02/15/25, XR CHEST 1 VIEW on DOS: 10/24/24, XR CHEST 1 VIEW on DOS: 09/06/24 FINDINGS: Lungs: Scattered areas of subsegmental atelectasis. No focal consolidation. No pneumothorax or pleural effusion. Cardiac: Mild cardiomegaly. Pulmonary vasculature: Unremarkable. Mediastinum/bartolome: Unremarkable. Bones: No acute osseous abnormality identified. Other: No other significant findings. IMPRESSION: Mild cardiomegaly. Otherwise, no evidence of acute disease in the chest. ATED BY: CINDY LEROY DO DICTATED DATE/TIME: 07/05/25 124 SIGNED BY: CINDY LEROY DO SIGNED DATE/TIME: 07/05/25 124 CC: [place] [id number] Ph: [phone] DIAGNOSTIC IMAGING Diagnostic Imaging Report : [id number] Signed PATIENT: KORI ROSENBAUM ACCT: [id number] UNIT: [id number] : 06/08/1941 LOC: [facility] AGE / SEX: 84 / F ADM STATUS: ADM IN SERVICE 1300 ORDERING PHYSICIAN: GAEL CURIEL NP PROCEDURE(s): RFEM - R FEMUR XRAY REASON: postop ORDER NUMBER(s): [id number], ACCESSION NUMBER(s): [id number] CLINICAL INDICATION: postop TECHNIQUE: XYXY R FEMUR XRAY, right Comparison: XY R HIP 1V XRAY on DOS: 07/06/25, XY R HIP COMPLETE XRAY on DOS: 07/05/25, CT HIP RIGHT WO on DOS: 06/18/25, XR HIP RIGHT 2-3 VIEW on DOS: 06/09/25, XR PELVIS 1-2 VIEW on DOS: 06/09/25 FINDINGS/IMPRESSION: : Right hip arthroplasty appears well positioned and aligned. No immediate complications. Expected postsurgical changes including skin estuardo and soft tissue gas. ATED BY: ILEANA PAZ MD DICTATED DATE/TIME: 07/06/25 1545 SIGNED BY: ILEANA PAZ MD SIGNED DATE/TIME: 07/06/25 1545 CC: [place] [id number] Ph: [phone] DIAGNOSTIC IMAGING Diagnostic Imaging Report : [id number] Signed PATIENT: KORI ROSENBAUM ACCT: [id number] UNIT: [id number] : 06/08/1941 [facility]GE / SEX: 84 / F ADM STATUS: ADM IN SERVICE 1416 ORDERING PHYSICIAN: JHONATAN MITCHELL DO PROCEDURE(s): RHIP1 - R HIP 1V XRAY REASON: RIGHT HIP HEMIARTHROPLASTY, REMOVAL OF HIP HARDWARE ORDER NUMBER(s): [id number], ACCESSION NUMBER(s): [id number] C-ARM FLUOROSCOPY: PROCEDURE: Right hip hemiarthroplasty FLUOROSCOPY TIME: 10.1 sec DAP: 0.75 mgy FINDINGS: Spot intraoperative C arm radiographs demonstrating right hip hemiarthroplasty. IMPRESSION: Please refer to surgical report for detailed findings. ATED BY: ILEANA PAZ MD DICTATED DATE/TIME: 07/06/25 1444 SIGNED BY: ILEANA PAZ MD SIGNED DATE/TIME: 07/06/25 1444 CC: [place] [id number] Ph: [phone] DIAGNOSTIC IMAGING Diagnostic Imaging Report : [id number] Signed PATIENT: KORI ROSENBAUM ACCT: [id number] UNIT: [id number] : 06/08/1941 [facility]GE / SEX: 84 / F ADM STATUS: ADM IN SERVICE 1417 ORDERING PHYSICIAN: JHONATAN MITCHELL DO PROCEDURE(s): CARM1 - C ARM FLUOROSCOPY UP TO 60MIN REASON: RIGHT HIP HEMIARTHROPLASTY, REMOVAL OF HIP HARDWARE ORDER NUMBER(s): [id number], ACCESSION NUMBER(s): [id number] C-ARM FLUOROSCOPY: PROCEDURE: Right hip hemiarthroplasty FLUOROSCOPY TIME: 10.1 sec DAP: 0.75 mgy FINDINGS: Spot intraoperative C arm radiographs demonstrating right hip hemiarthroplasty. IMPRESSION: Please refer to surgical report for detailed findings. ATED BY: ILEANA PAZ MD DICTATED DATE/TIME: 07/06/251443 SIGNED BY: ILEANA PAZ MD SIGNED DATE/TIME: 07/06/251443 CC: Condition at Discharge: Stable Final Diagnosis/Problems List #s/p Right hip hardware removal with conversion to right total hip arthroplasty # Elective surgery for right total hip replacement - completed 07/07/2025 # History of bilateral hip repair # Multiple mechanical falls with no loss of consciousness # Degenerative disc disease # History of chronic mild compression fractures of L L2, L5 and T12 # History of right 4th digit fracture # Osteopenia # Hypereosinophilia # Rule out hypereosinophilic syndrome (questionable endomyocardial fibrosis) # Chronic diastolic congestive heart failure (HFpEF, LVEF 55-60%) # Moderate Pulmonary hypertension (RVSP 55-60 mmHg) # Moderate tricuspid regurgitation # Hypereosinophilia # Thrombocytosis # Severe Normocytic anemia expected - s/p 1 PRBC #Probable mild cognitive impairment Discharge Disposition: Long Term Facility Discharge Instruct/Medications Diet: Cardiac 2g Na,low cholest Activity: Activity comment: As per physical therapy recommendation/orthopedic recommendation Follow Up/Referral: MD at SNF PCP Orthopedic surgeon Medications: As above Scheduled Albuterol Sulfate (Albuterol Sulfate Hfa), 2 PUFF PO TID, (Reported) Atorvastatin Calcium (Atorvastatin Calcium), 1 TAB PO DAILY, (Reported) Clobetasol Propionate (Clobetasol Propionate), TOP BID, (Reported) Famotidine (Pepcid Tablet), 1 TAB PO BID, (Reported) Fluticasone Propionate (Fluticasone Propionate Hf), 1 PUFF PO BID, (Reported) Furosemide (Furosemide), 1 TAB PO DAILY, (Reported) Nicotine (Nicotine Transdermal Syst), 1 PATCH TOP DAILY, (Reported) Potassium Chloride (Klor-Con M10), 8 MEQ PO DAILY, (Reported) Sertraline HCl (Sertraline HCl), 1 TAB PO DAILY, (Reported) Discharge Statement: "Patient was advised to return to the ER or call 911 if any headaches, dizziness, shortness of breath, chest pain, abdominal pain, bleeding, fevers, or worsening of medical condition. Patient was counseled about treatment plan, medications, possible side effects, patientverbalized understanding. All questions were answered to the best of my ability. This discharge took greater then 30 minutes in planning, reviewing documentation, counseling the patient, and discussing with other team members." ASSESSMENT ASSESSMENT Assessment Visit Coding STANDARD RES Billing Provider: CHRISTINE MARK MD Date of Service if different f: Jul 08, 2025 Common Visit Codes: 35999-EFZ/OBS DISCH DAY >30min LESLIE NOVOA RESIDENT Jul 08, 2025 14:23
--- NOTE | 2025-07-08 15:46 | DVHPNRES ---
Progress Note Date Seen: Jul 08, 2025 Resident Creating Document: LESLIE NOVOA RESIDENT Medical Necessity Reason Pt with a Central, PICC or Fol: No Subjective Review of Systems This is a 61-year-old female with COPD on home oxygen 2 L per, heart failure, depression, psoriasis, and active smoking who presents with one week of worsening shortness of breath accompanied by progressive bilateral leg swelling and abdominal distention. She reports that her breathing has deteriorated significantly compared to her baseline for last 1 week, and she becomes winded even with minimal activity. Patient also endorse cough with uses 4 times for same duration. Patient also reported having the abdominal distention and leg edema for more than 2 weeks. On 4 the included patient also reported having paracentesis almost 3 years before in [facility]. On arrival she was tachypneic, hypoxic on nasal cannula, and had diffuse wheezing and crackles. ABG showed acute on chronic hypercapnic respiratory failure (pH 7.31, pCO2 64), and BiPAP was initiated. Of the lab workup revealed WBCs 12.1, UDS positive for cocaine, BNP 7 1, troponin I 160> 160> 171. TSH is 1.6. Abdominal US shows ascites, chest x-ray shows bilateral fibrotic changes, bilateral patchy opacity. CT chest/abdomen/pelvis with contrast demonstrated severe emphysematous changes, atelectasis with a possible mass lesion, and right-sided lymphadenopathy concerning for malignancy. The study also showed dilated pulmonary artery, right atrial and ventricular enlargement, hepatomegaly with periportal edema, mesenteric edema, body wall edema, and large ascites, consistent with pulmonary hypertension and systemic volume overload. Also esophageal thickening. Chest x-ray- Hyperinflation of the lungs with diffuse interstitial prominence which could be from fibrotic changes with patchy left upper to mid lung zone and right lower lung zone opacities which may represent areas of scarring. Doppler study of the lower extremity negative for DVT. Past Medical History-COPD on home O2, heart failure, depression, psoriasis. Past Surgical History-No surgeries reported. Medications-Fluticasone inhaler, albuterol inhaler, nicotine patch, clobetasol cream, potassium chloride, atorvastatin, famotidine, sertraline, ibuprofen. Social History-Lives at home. Active smoker. Denies alcohol or illicit drugs. Lives with son Allergy NKDA PCP Dr. Morgan Patient was seen today at bedside Labs and chart reviewed WBC trending up likely due to steroid Repeat ABG 2D on 07/08/2025 pH 7.348, pCO2 56.7, PO2 68.1, bicarb 30.5, likely patient is a chronic retainer of carbon dioxide due to COPD Pending echo 2D report Increase Lasix from 20 mg to 40 mg IV b.i.d. Patient with a persistent lung crackles and bilateral leg edema Urine culture no growth Blood culture no growth Ascitic fluid no growth so far Ascitic fluid study revealed transudative fluid likely from heart failure Spoke to patient's sister Shayy, , discussed patient's current medical condition, plan of care, answered questions Objective vital signs Vital Sign Date Time Temp Pulse Resp B/P (MAP) Pulse Ox O2 Delivery O2 Flow Rate FiO2 07/08/25 13:00 98.0 62 17 99/74 (82) 94 98.0 07/08/25 11:24 Nasal Cannula 3.0 07/08/25 11:24 32 Total Intake and Output 07/07/25 07/07/25 07/08/25 15:00 23:00 07:00 Intake Total 900 ml 800 ml Balance 900 ml 800 ml medications Current Medications Medications Dose Ordered Sig/Darci Route Start Time Stop Time Status Last Admin Dose Admin Acetaminophen 650 mg Q6HP PRN PO 07/06/25 18:15 Acetaminophen/ Hydrocodone Bitart 1 tab Q4HP PRN PO 07/06/25 18:15 Ondansetron HCl 4 mg Q4HP PRN IV 07/06/25 18:15 Morphine Sulfate 2 mg Q4HPRN PRN IV 07/06/25 18:15 Ceftriaxone Sodium 50 ml @ 100 mls/hr DAILY@09 IV 07/06/25 18:15 07/08/25 09:41 100 MLS/HR Azithromycin 250 ml @ 125 mls/hr DAILY IV 07/07/25 10:00 07/08/25 12:00 125 MLS/HR Methylprednisolone Sodium Succinate 40 mg Q8HR IV 07/07/25 06:00 07/08/25 05:48 40 MG Pantoprazole Sodium 40 mg DAILY IV 07/07/25 10:00 07/08/25 09:47 40 MG Albuterol 2.5 mg Q6HWA NEB 07/07/25 06:00 07/08/25 12:32 2.5 MG Ipratropium [place] 0.5 mg Q6HWA NEB 07/07/25 06:00 07/08/25 12:32 0.5 MG Ergocalciferol 50,000 unit Q7D PO 07/07/25 08:15 07/07/25 10:58 50,000 UNIT Vancomycin HCl 0 ml @ 0 mls/hr PER PHARMACY IV 07/07/25 08:30 Vancomycin HCl 250 ml @ 250 mls/hr Q12H IV 07/08/25 00:00 07/08/25 12:36 250 MLS/HR Diphenhydramine HCl 25 mg Q12HP PRN PO 07/07/25 16:00 07/08/25 09:47 25 MG Magnesium Oxide 800 mg BID PO 07/08/25 09:15 07/08/25 12:28 800 MG Furosemide 40 mg BIDD IV 07/08/25 18:00 Examination General examination- awake, alert HEENT- PEERLA, no acute nasal discharge Cardiovascular- S1-S2 audible, rate and rhythm regular, no murmur Respiratory- diminished breath sounds, bilateral lung crackles, Gastrointestinal-distended abdomen, ascites present+++ Musculoskeletal-no acute joint swelling or tenderness or redness Lower extremity- bilateral leg edema+++ Neurological- cranial nerves intact, no acute dysarthria or dysphagia Psychiatry- denies depression or SI or HI Skin- no acute rash or purpura laboratory and microbiology Laboratory Tests 07/08/25 06:15 Test 07/08/25 06:15 Range/Units Serum Glucose 90 74-106 mg/dL Microbiology Date/Time Source Procedure Growth Status 07/07/25 20:35 Voided Urine Urine Culture - Preliminary Resulted 07/07/25 13:00 Ascities Fluid Gram Stain - Final Resulted 07/07/25 13:00 Ascities Fluid Body Fluid Culture - Preliminary No growth Resulted 07/06/25 13:03 Blood Blood Culture - Preliminary NO GROWTH AFTER 48 HOURS OF INCUBATION. Resulted Problem List/Assessment/Plan Problem List/Assessment/Plan Assessment and plan # acute on chronic hypoxic and hypercapnic respiratory failure likely due to acute exertional COPD # acute pneumonia Gram-positive versus Gram-negative # emphysematous lung # suspected pulmonary mass/neoplasm # mediastinal lymphadenopathy -pulmonary on board-recommended for IR for lung biopsy and paracentesis -continue nebulization as prescribed -on ceftriaxone and azithromycin -continue methylprednisolone as prescribed -pending blood culture, urine culture, sputum culture -Patient was seen by Radiology for possible lung biopsy, reduced recommended for outpatient PET scan before deciding if patient needs any lying biopsy are not due to emphysema. # Acute on chronic diastolic heart failure (HFpEF, LVEF 50-55%) # NSTEMI type 2 likely due to demand ischemia # anasarca # Pulmonary hypertension/Cor pulmonale -continue Lasix 40 mg IV b.i.d. and spironolactone -continue nebulization as prescribed -Status post paracentesis by IR, 3.1 L of darinel colored fluid was removed. -ascitic fluid study reveals transudative fluid -Completed echocardiogram which revealts LVEF 50-55%, RV severely dilated with severely reduced function, RA severely dialted, severe TR, IVC dilated, ascites and large left pleural effusion. -strict I&O # depression -resume home medication # psoriasis -continue current management # Substance abuse # Nicotine dependence -UDS positive for cocaine -counseled about the effect of substance abuse and also effect of smoking on health # Vitamin D Deficiency Replenished Goals of care, Code status full code ; PUD prophylaxis: Pantoprazole DVT prophylaxis: Lovenox Plan discussed with Dr. Mancia, nursing staff, Total time spent on patient evaluation, chart review, assessment and plan, discussion discussion >35 minutes Plan discussed with: Patient, Other (RN, SISTER) My Orders My Orders Orders - LESLIE NOVOA RESIDENT Procedure Category Date Status Time Diphenhydramine PHA 07/07/25 In Process Capsule (Benadryl 16:00 Cardiac DIET 07/07/25 Transmitted Diet-2gna,Lofat,Lochol Dinner Electrocardigram EKG 07/08/25 Logged 09:07 Magnesium Oxide PHA 07/08/25 In Process Tablet (Mag-Ox Tablet) 09:15 Abg W/ Co-Ox RT 07/08/25 Logged 09:12 Furosemide Injection PHA 07/08/25 In Process (Lasix Injection) 18:00 Communication Order ORDERS 07/08/25 Transmitted 13:56 Complete Blood Count LAB 07/09/25 Verified 04:00 Basic Metabolic Panel LAB 07/09/25 Verified 04:00 Magnesium LAB 07/09/25 Verified 04:00 Visit Coding STANDARD RES Billing Provider: CHRISTINE MANCIA MD Date of Service if different f: Jul 08, 2025 Common Visit Codes: [id number] INP/OBS CARE(HIGH) LESLIE NOVOA RESIDENT Jul 08, 2025 15:46 CHILO MIRANDA RESIDENT Jul 08, 2025 23:11
--- NOTE | 2025-07-08 17:28 | DVHSR ---
APPROVED REPORT EXAM: Two-dimensional and M-mode echocardiogram with Doppler, color Doppler and Bubble Study. Blood Pressure: 111/75 mmHg INDICATION Dyspnea Heart Failure RISK FACTORS Height: 5'6", Weight: 138 DIMENSIONS LVDd 4.5 (3.8-5.7cm) LA (2D) 3.8 (1.9-4.0cm) Aortic Root 3.2 (2.0-3.7cm) LVDs 3.3 (2.5-4.0cm) LA (MM) (1.9-4.0cm) Aortic Cusp Exc 1.6 (1.5-2.0cm) EF (%) 52.0 (55-70%) Rt. Atrium 6.2 (1.9-4.0cm) Asc. Aorta 2.9 cm IVSd 0.7 (0.7-1.1cm) RV (D) 4.6 (1.8-2.4cm) PWd 0.8 (0.7-1.1cm) Mitral Valve Mitral Mitral Stenosis E/A ratio 0.0 2D MVA cm2 Aortic Valve Aortic Valve Aortic Stenosis V1 0.71m/s AO Mean GR. 2mmHg V2 0.87m/s AO Peak GR. 3mmHg LVOT Diameter 1.9 (1.8-2.4cm) Doppler ELEAZAR 2.31cm2 Pulmonic Valve V2 0.76m/s Tricuspid Valve TR Velocity 2.58m/s RVSP 54mmHg ATRIA Injection of contrast documented an interatrial shunt. Other Information Quality : Technically Limited Rhythm : Conclusion LVEF is normal at 50-55%, Right ventricle severely dilated with severely reduced function Right atrium severely dilated Severe tricuspid regurgitation IVC dilated ascites and large left pleural effusion present
[2025-07-08] MEDS: FUROSEMIDE 40 MG/4 ML VIAL IV SCH (17:51)
--- NOTE | 2025-07-08 23:52 | DVHPN2 ---
Subjective DOS: 07/08/2025 Patient seen and examined at bedside. Remains on supplemental oxygen Overnight events reviewed. Changes from previous H/P or p: No Changes Objective Vitals Vital Signs Date Time Temp Pulse Resp B/P (MAP) Pulse Ox O2 Delivery O2 Flow Rate FiO2 07/08/25 21:00 98.4 95 18 103/78 (86) 98 98.4 07/08/25 20:00 Nasal Cannula* 3 32 Intake/Output Intake and Output 07/08/25 07:00 Intake Total 1700 ml Balance 1700 ml Intake Oral 1450 ml IV Total 250 ml # Voids 9 Exam Gen.: Patient lying in bed in no apparent distress. On supplemental oxygen. Head: Normocephalic, atraumatic. Eyes: EOMI/PERRLA. Ears: Normal hearing. Normal anatomy. Neck/trachea: Trachea midline, supple. Nose: Normal external anatomy. Mouth: Moist mucous membranes. Chest: Decreased air entry bilaterally. No wheezing or rhonchi. Cardiovascular: Positive S1, positive S2. Regular rate and rhythm. Abdomen: Positive bowel sounds in all 4 quadrants. Soft, non-tender, non- distended. : Deferred. Rectal: Deferred. Skin: Warm, dry. Intact. Extremities: 2+ radial pulses bilaterally. No lower extremity edema. Neuro: Awake, alert, oriented x3. No gross motor or sensory deficits. Cranial nerves II through XII intact. Gait not assessed. Medications Current Medications Medications Dose Ordered Sig/Darci Route Start Time Stop Time Status Last Admin Dose Admin Acetaminophen 650 mg Q6HP PRN PO 07/06/25 18:15 Acetaminophen/ Hydrocodone Bitart 1 tab Q4HP PRN PO 07/06/25 18:15 Ondansetron HCl 4 mg Q4HP PRN IV 07/06/25 18:15 Morphine Sulfate 2 mg Q4HPRN PRN IV 07/06/25 18:15 Ceftriaxone Sodium 50 ml @ 100 mls/hr DAILY@09 IV 07/06/25 18:15 07/08/25 09:41 100 MLS/HR Azithromycin 250 ml @ 125 mls/hr DAILY IV 07/07/25 10:00 07/08/25 12:00 125 MLS/HR Methylprednisolone Sodium Succinate 40 mg Q8HR IV 07/07/25 06:00 07/08/25 20:54 40 MG Pantoprazole Sodium 40 mg DAILY IV 07/07/25 10:00 07/08/25 09:47 40 MG Albuterol 2.5 mg Q6HWA [facility] 07/07/25 06:00 07/08/25 19:10 2.5 MG Ipratropium [place] 0.5 mg Q6HWA [facility] 07/07/25 06:00 07/08/25 19:10 0.5 MG Ergocalciferol 50,000 unit Q7D PO 07/07/25 08:15 07/07/25 10:58 50,000 UNIT Vancomycin HCl 0 ml @ 0 mls/hr PER PHARMACY IV 07/07/25 08:30 Vancomycin HCl 250 ml @ 250 mls/hr Q12H IV 07/08/25 00:00 07/08/25 12:36 250 MLS/HR Diphenhydramine HCl 25 mg Q12HP PRN PO 07/07/25 16:00 07/08/25 20:54 25 MG Magnesium Oxide 800 mg BID PO 07/08/25 09:15 07/08/25 20:54 800 MG Furosemide 40 mg BIDD IV 07/08/25 18:00 07/08/25 17:51 40 MG Spironolactone 25 mg DAILY PO 07/09/25 10:00 Laboratory Results Laboratory Tests 07/08/25 06:15 Chemistry Test 07/08/25 06:15 Albumin 3.2 g/dL (3.2-4.8) Calcium Level 8.6 mg/dL (8.7-10.4) L Magnesium Level 1.6 mg/dL (1.6-2.6) Phosphorus Level 3.3 mg/dL (2.4-5.1) Total Protein 8.0 g/dL (5.7-8.2) LFT Test 07/08/25 06:15 Alanine Aminotransferase (ALT) 18 U/L (7-40) Alkaline Phosphatase 87 U/L (46-116) Aspartate Amino Transferase (AST) 33 U/L (13-40) Total Bilirubin 0.4 mg/dL (0.2-1.0) Urinalysis Test 07/06/25 16:54 07/06/25 20:35 Urine Mucus Few (None Seen) Urine Color Colorless (Yellow) Urine Clarity Clear (Clear) Urine pH 5.0 (5.0-9.0) Urine Specific [place] 1.011 (1.001-1.035) Urine Protein Negative (Negative) Urine Ketones Negative (Negative) Urine Blood Negative /uL (Negative) Urine Nitrite Negative (Negative) Urine Bilirubin Negative (Negative) Urine Urobilinogen Normal mg/dL (Negative) Urine Leukocyte Esterase Negative /uL (Negative) Urine RBC <1 /hpf (0 - 4) Urine Microscopic WBC 1 /HPF (0-5) Urine Squamous Epithelial Cells Few /hpf (<5) Urine Bacteria None seen /hpf (None Seen) Urine Glucose Normal mg/dL (Normal) Blood Gas Results Test 07/08/25 09:55 Arterial Blood pH 7.348 (7.350-7.450) FiO2 % 32.0 Microbiology Microbiology Date/Time Source Procedure Growth Status 07/07/25 20:35 Voided Urine Urine Culture - Preliminary Resulted 07/07/25 13:00 Ascities Fluid Gram Stain - Final Resulted 07/07/25 13:00 Ascities Fluid Body Fluid Culture - Preliminary No growth Resulted 07/06/25 13:03 Blood Blood Culture - Preliminary NO GROWTH AFTER 48 HOURS OF INCUBATION. Resulted Assessment/Plan Assessment/Plan Impression: Acute hypoxic respiratory failure Lung mass Ascites Atelectasis Pneumonia Likely chronic obstructive pulmonary disease Nicotine dependence Events: Remains on supplemental oxygen, 3 LPM NC Taper O2 as tolerated Continue bronchodilators Continue antibiotics IV steroids Incentive spirometry S/p paracentesis by IR, removed 3.2 liters on 07/07/25 Consult IR for lung biopsy Diurese with Lasix as tolerated Monitor renal function. Monitor electrolytes. Supplement as necessary Nicotine replacement therapy Labs and imaging reviewed. Rest of plan as noted below. Plan: Supplemental oxygen Titrate to keep O2 sats above 92%. CXR reviewed, demonstrates Hyperinflation of the lungs with diffuse interstitial prominence which could be from fibrotic changes with patchy left upper to mid lung zone and right lower lung zone opacities which may represent areas of scarring. Underlying mass can not be excluded. Blunting of the left costophrenic angle which may be from atelectasis/ scarring/trace effusion. CT chest, abdomen and pelvis reviewed; reveals a 2.6 x 2.5 x 3.9 cm masslike density over the left lower lobe abutting the pleura. Patchy left upper lobe consolidation abutting the fissure may represent pneumonia/atelectasis with a mass lesion not excluded. Severe emphysematous changes of bilateral lungs with scattered bilateral lung atelectasis. Mediastinal lymphadenopathy which may be reactive or neoplastic. Large ascites with mesenteric edema. Dilatation of the pulmonary trunk. Correlate for pulmonary arterial hypertension. See report for full details. Continue bronchodilators. Continue antibiotics Incentive spirometry Send sputum cultures Consult IR for lung biopsy S/p paracentesis by IR. Smoking cessation discussed greater than 10 minutes - smokes 0.5 PPD currently with >30 pack year smoking history Diurese to euvolemia Monitor renal function. Monitor electrolytes. Supplement as necessary. Monitor ins and outs. DVT prophylaxis. Prognosis: Poor given patient's multiple co-morbidities. Rest of plan per hospitalist and other consultants. Thank you, Dr. Gaytan, for allowing me to participate in this patient's care. Further recommendations will depend on the patient's clinical course. Please do not hesitate to contact me if you have any questions or concerns. This medical document was created using an electronic medical record system with [employer] computerized dictation system. Although these documentations are being carefully reviewed, there may still be some phonetic and typographical changes. The errors are purely typographical, due to imperfection on the software program, and do not reflect any compromise in the patient's medical care. Plan discussed with: Patient, Other (RN Camila) Visit Coding Pulmonary Billing Provider: KELLI SIDDIQUI MD Date of Service if different f: Jul 08, 2025 Common Visit Codes: [id number] INP/OBS CARE(HIGH) KELLI SIDDIQUI MD Jul 08, 2025 23:52
[2025-07-09] VITALS (15 sets, daily range): BP systolic 93–121; BP diastolic 66–84; PULSE 66–117; RESP 16–20; TEMP 97.7–98.1; O2SAT 90–100
[2025-07-09 06:15] LABS: Potassium 3.8 mmol/L (3.5-5.1)
[2025-07-09 06:16] LABS: Anion Gap 6 (5-15)
[2025-07-09 06:17] LABS: Hematocrit 42.7 % (36.0-46.0); Hemoglobin 13.8 g/dL (12.2-16.2); Mean Corpuscular Hemoglobin 29.0 pg (28.0-32.0); Mean Corpuscular Volume 89.9 fL (80.0-100.0); Nucleated Red Blood Cells % 0.1 %
[2025-07-09 06:21] LABS: BUN/Creatinine Ratio 16.7 (10.0-20.0); Blood Urea Nitrogen 11 mg/dL (9-23)
[2025-07-09 06:26] LABS: Calcium 8.7 mg/dL (8.7-10.4); Carbon Dioxide 36 mmol/L (20-31); Chloride 92 mmol/L (98-107); Glucose 112 mg/dL (74-106); Magnesium 1.6 mg/dL (1.6-2.6); Sodium 134 mmol/L (136-145)
[2025-07-09] MEDS: SPIRONOLACTONE 25 MG TAB PO SCH (09:44)
--- NOTE | 2025-07-09 10:55 | ECG ---
[facility] Test Date: 2025-07-08 Test Time: 09:16:29 Pat Name: SANDRA ARMSTRONG Department: Respiratoy Room: 0218T A Gender: F Transition Program Manager: LCANUDAY : 1965 Requested By: LESLIE NOVOA Order Number: [id number] Reading MD: Javier Parrish Measurements Intervals [place] Rate: 114 P: 81 VT: 131 QRS: 89 QRSD: 77 T: 0 QT: 367 QTc: 506 Interpretive Statements Fast sinus arrhythmia Borderline right axis deviation Borderline T abnormalities, inferior leads Prolonged QT interval Electronically Signed On 07-09-2025 18:28:15 PST by Javier Parrish Please click the below link to view image of tracing.
[2025-07-09] MEDS: AZITHROMYCIN 250 MG TAB PO SCH (12:40)
[2025-07-09] MEDS: FUROSEMIDE 40 MG/4 ML VIAL IV ONE (12:40)
[2025-07-09] MEDS: levoFLOXacin 250 MG TAB PO SCH (12:41)
--- NOTE | 2025-07-09 15:23 | DVHPNRES ---
Progress Note Date Seen: Jul 09, 2025 Resident Creating Document: LESLIE NOVOA RESIDENT Medical Necessity Reason Pt with a Central, PICC or Fol: No Subjective Review of Systems This is a 61-year-old female with COPD on home oxygen 2 L per, heart failure, depression, psoriasis, and active smoking who presents with one week of worsening shortness of breath accompanied by progressive bilateral leg swelling and abdominal distention. She reports that her breathing has deteriorated significantly compared to her baseline for last 1 week, and she becomes winded even with minimal activity. Patient also endorse cough with uses 4 times for same duration. Patient also reported having the abdominal distention and leg edema for more than 2 weeks. On 4 the included patient also reported having paracentesis almost 3 years before in [facility]. On arrival she was tachypneic, hypoxic on nasal cannula, and had diffuse wheezing and crackles. ABG showed acute on chronic hypercapnic respiratory failure (pH 7.31, pCO2 64), and BiPAP was initiated. Of the lab workup revealed WBCs 12.1, UDS positive for cocaine, BNP 7 1, troponin I 160> 160> 171. TSH is 1.6. Abdominal US shows ascites, chest x-ray shows bilateral fibrotic changes, bilateral patchy opacity. CT chest/abdomen/pelvis with contrast demonstrated severe emphysematous changes, atelectasis with a possible mass lesion, and right-sided lymphadenopathy concerning for malignancy. The study also showed dilated pulmonary artery, right atrial and ventricular enlargement, hepatomegaly with periportal edema, mesenteric edema, body wall edema, and large ascites, consistent with pulmonary hypertension and systemic volume overload. Also esophageal thickening. Chest x-ray- Hyperinflation of the lungs with diffuse interstitial prominence which could be from fibrotic changes with patchy left upper to mid lung zone and right lower lung zone opacities which may represent areas of scarring. Doppler study of the lower extremity negative for DVT. Past Medical History-COPD on home O2, heart failure, depression, psoriasis. Past Surgical History-No surgeries reported. Medications-Fluticasone inhaler, albuterol inhaler, nicotine patch, clobetasol cream, potassium chloride, atorvastatin, famotidine, sertraline, ibuprofen. Social History-Lives at home. Active smoker. Denies alcohol or illicit drugs. Lives with son Allergy NKDA PCP Dr. Morgan Patient was seen today at bedside Labs and chart reviewed WBC trending down Patient is still fluid overloaded We will continue IV Lasix Patient on spironolactone Changed antibiotic from IV to oral form Discontinued methylprednisolone, patient was put on prednisone 20 mg daily Fluid restriction 1200 mL/24 hours Echo 2D report-LVEF is normal at 50-55%, , RVseverely dilated with severely reduced function, RA severely dilated, Severe TR regurgitation, IVC dilated Spoke to patient's sister Shayy, , discussed patient's current medical condition, plan of care, answered questions Objective vital signs Vital Sign Date Time Temp Pulse Resp B/P (MAP) Pulse Ox O2 Delivery O2 Flow Rate FiO2 07/09/25 12:50 97.7 92 18 93/66 (75) 90 97.7 07/09/25 12:32 Nasal Cannula 3.0 07/09/25 12:32 32 Total Intake and Output 07/08/25 07/08/25 07/09/25 15:00 23:00 07:00 Intake Total 1510 ml 1160 ml Output Total 600 ml 1000 ml Balance 910 ml 160 ml medications Current Medications Medications Dose Ordered Sig/Darci Route Start Time Stop Time Status Last Admin Dose Admin Acetaminophen 650 mg Q6HP PRN PO 07/06/25 18:15 Acetaminophen/ Hydrocodone Bitart 1 tab Q4HP PRN PO 07/06/25 18:15 Ondansetron HCl 4 mg Q4HP PRN IV 07/06/25 18:15 Morphine Sulfate 2 mg Q4HPRN PRN IV 07/06/25 18:15 Albuterol 2.5 mg Q6HWA [facility] 07/07/25 06:00 07/09/25 07:02 2.5 MG Ipratropium [place] 0.5 mg Q6HWA [facility] 07/07/25 06:00 07/09/25 07:02 0.5 MG Ergocalciferol 50,000 unit Q7D PO 07/07/25 08:15 07/07/25 10:58 50,000 UNIT Diphenhydramine HCl 25 mg Q12HP PRN PO 07/07/25 16:00 07/08/25 20:54 25 MG Magnesium Oxide 800 mg BID PO 07/08/25 09:15 07/09/25 09:44 800 MG Furosemide 40 mg BIDD IV 07/08/25 18:00 07/09/25 04:59 40 MG Spironolactone 25 mg DAILY PO 07/09/25 10:00 07/09/25 09:44 25 MG Levofloxacin 750 mg DAILY PO 07/09/25 10:00 07/09/25 12:41 750 MG Azithromycin 250 mg DAILY PO 07/09/25 10:00 07/09/25 12:40 250 MG Pantoprazole Sodium 40 mg DAILY@0600 PO 07/10/25 06:00 Prednisone 20 mg DAILY PO 07/10/25 10:00 Examination General examination- awake, alert HEENT- PEERLA, no acute nasal discharge Cardiovascular- S1-S2 audible, rate and rhythm regular, no murmur Respiratory- diminished breath sounds, bilateral lung crackles, Gastrointestinal-distended abdomen, ascites present+++ Musculoskeletal-no acute joint swelling or tenderness or redness Lower extremity- bilateral leg edema+++ Neurological- cranial nerves intact, no acute dysarthria or dysphagia Psychiatry- denies depression or SI or HI Skin- no acute rash or purpura laboratory and microbiology Laboratory Tests 07/09/25 05:36 Test 07/09/25 05:36 Range/Units Serum Glucose 112 H 74-106 mg/dL Microbiology Date/Time Source Procedure Growth Status 07/09/25 05:05 Nose MRSA Screen - Final Complete 07/07/25 20:35 Voided Urine Urine Culture - Final Complete 07/07/25 13:00 Ascities Fluid Gram Stain - Final Resulted 07/07/25 13:00 Ascities Fluid Body Fluid Culture - Preliminary No growth Resulted 07/06/25 13:03 Blood Blood Culture - Preliminary NO GROWTH AFTER 72 HOURS OF INCUBATION. Resulted Problem List/Assessment/Plan Problem List/Assessment/Plan Assessment and plan # acute on chronic hypoxic and hypercapnic respiratory failure likely due to acute exertional COPD # acute pneumonia Gram-positive versus Gram-negative # emphysematous lung # suspected left lung -Patient was seen by Radiology for possible lung biopsy, reduced recommended for outpatient PET scan before deciding if patient needs any lying biopsy are not due to emphysema. -continue nebulization as prescribed -on levofloxacin and azithromycin -continue prednisone -MRSA screening negative -blood culture no growth -ascitic fluid no growth -urine culture no growth # cor pulmonale likely due to COPD # acute on chronic heart failure systolic versus diastolic # anasarca # suspected pulmonary hypertension # bilateral leg edema likely due to above -continue Lasix 40 mg IV b.i.d. -continue nebulization as prescribed -Status post paracentesis by IR, 3.1 L of darinel colored fluid was removed. -ascitic fluid study reveals transudative fluid -pending echo 2D -strict I&O #NSTEMI type 2 likely due to demand lead ischemia -Echo 2D report-LVEF is normal at 50-55%, , RVseverely dilated with severely reduced function, RA severely dilated, Severe TR regurgitation, IVC dilated --continue current conservative management # suspected pulmonary mass/neoplasm # mediastinal lymphadenopathy -pulmonary on board -Patient was seen by Radiology for possible lung biopsy, reduced recommended for outpatient PET scan before deciding if patient needs any lying biopsy are not due to emphysema. # depression -resume home medication # psoriasis -continue current management #Substance abuse, -UDS positive for cocaine -counseled about the effect of substance abuse and also effect of smoking on health Goals of care, Code status full code ; PUD prophylaxis: Pantoprazole DVT prophylaxis: Lovenox Plan discussed with Dr. Mancia, nursing staff, Total time spent on patient evaluation, chart review, assessment and plan, discussion discussion >35 minutes Plan discussed with: Patient, Other (RN) My Orders My Orders Orders - LESLIE NOVOA Procedure Category Date Status Time Maintain Fluid THOM 07/09/25 In Process Restrictions 07:17 Mrsa Screen KUMAR 07/09/25 Uncollected 08:56 Levofloxacin Tablet PHA 07/09/25 In Process (Levaquin Tablet) 10:00 Azithromycin Tablet PHA 07/09/25 In Process (Zithromax Tablet) 10:00 Pantoprazole Tablet PHA 07/10/25 In Process (Protonix Tablet) 06:00 Prednisone Tablet PHA 07/10/25 In Process 10:00 Complete Blood Count LAB 07/10/25 Verified 04:00 Basic Metabolic Panel LAB 07/10/25 Verified 04:00 Magnesium LAB 07/10/25 Verified 04:00 Visit Coding STANDARD RES Billing Provider: CHRISTINE MANCIA MD Date of Service if different f: Jul 09, 2025 Common Visit Codes: [id number] INP/OBS CARE(HIGH) LESLIE NOVOA Jul 09, 2025 15:23
--- NOTE | 2025-07-09 18:24 | MEDREC ---
[facility] ASP Intervention Section I [facility] ASP Intervention: Review courses of therapy (QTC = 506, recommend changing azithromycin to doxycycline) VERN HERNANDEZ PHARMACIST Jul 09, 2025 18:24
--- NOTE | 2025-07-09 22:09 | DVHPN2 ---
Subjective DOS: 07/09/2025 Patient seen and examined at bedside. Remains on supplemental oxygen Overnight events reviewed. Changes from previous H/P or p: No Changes Objective Vitals Vital Signs Date Time Temp Pulse Resp B/P (MAP) Pulse Ox O2 Delivery O2 Flow Rate FiO2 07/09/25 21:00 98.1 66 18 105/75 (85) 95 98.1 07/09/25 20:00 Nasal Cannula* 3 32 Intake/Output Intake and Output 07/09/25 07:00 Intake Total 2670 ml Output Total 1600 ml Balance 1070 ml Intake Oral 2120 ml IV Total 550 ml Output Urine Total 1600 ml # Bowel Movements 1 Exam Gen.: Patient lying in bed in no apparent distress. On supplemental oxygen. Head: Normocephalic, atraumatic. Eyes: EOMI/PERRLA. Ears: Normal hearing. Normal anatomy. Neck/trachea: Trachea midline, supple. Nose: Normal external anatomy. Mouth: Moist mucous membranes. Chest: Decreased air entry bilaterally. No wheezing or rhonchi. Cardiovascular: Positive S1, positive S2. Regular rate and rhythm. Abdomen: Positive bowel sounds in all 4 quadrants. Soft, non-tender, non- distended. : Deferred. Rectal: Deferred. Skin: Warm, dry. Intact. Extremities: 2+ radial pulses bilaterally. No lower extremity edema. Neuro: Awake, alert, oriented x3. No gross motor or sensory deficits. Cranial nerves II through XII intact. Gait not assessed. Medications Current Medications Medications Dose Ordered Sig/Darci Route Start Time Stop Time Status Last Admin Dose Admin Acetaminophen 650 mg Q6HP PRN PO 07/06/25 18:15 Acetaminophen/ Hydrocodone Bitart 1 tab Q4HP PRN PO 07/06/25 18:15 Ondansetron HCl 4 mg Q4HP PRN IV 07/06/25 18:15 Morphine Sulfate 2 mg Q4HPRN PRN IV 07/06/25 18:15 Albuterol 2.5 mg Q6HWA NEB 07/07/25 06:00 07/09/25 19:15 2.5 MG Ipratropium [place] 0.5 mg Q6HWA NEB 07/07/25 06:00 07/09/25 19:15 0.5 MG Ergocalciferol 50,000 unit Q7D PO 07/07/25 08:15 07/07/25 10:58 50,000 UNIT Diphenhydramine HCl 25 mg Q12HP PRN PO 07/07/25 16:00 07/08/25 20:54 25 MG Magnesium Oxide 800 mg BID PO 07/08/25 09:15 07/09/25 21:13 800 MG Furosemide 40 mg BIDD IV 07/08/25 18:00 07/09/25 17:48 40 MG Spironolactone 25 mg DAILY PO 07/09/25 10:00 07/09/25 09:44 25 MG Levofloxacin 750 mg DAILY PO 07/09/25 10:00 07/09/25 12:41 750 MG Azithromycin 250 mg DAILY PO 07/09/25 10:00 07/09/25 12:40 250 MG Pantoprazole Sodium 40 mg DAILY@0600 PO 07/10/25 06:00 Prednisone 20 mg DAILY PO 07/10/25 10:00 Laboratory Results Laboratory Tests 07/09/25 05:36 Chemistry Test 07/09/25 05:36 Calcium Level 8.7 mg/dL (8.7-10.4) Magnesium Level 1.6 mg/dL (1.6-2.6) Urinalysis Test 07/06/25 16:54 07/06/25 20:35 Urine Mucus Few (None Seen) Urine Color Colorless (Yellow) Urine Clarity Clear (Clear) Urine pH 5.0 (5.0-9.0) Urine Specific [place] 1.011 (1.001-1.035) Urine Protein Negative (Negative) Urine Ketones Negative (Negative) Urine Blood Negative /uL (Negative) Urine Nitrite Negative (Negative) Urine Bilirubin Negative (Negative) Urine Urobilinogen Normal mg/dL (Negative) Urine Leukocyte Esterase Negative /uL (Negative) Urine RBC <1 /hpf (0 - 4) Urine Microscopic WBC 1 /HPF (0-5) Urine Squamous Epithelial Cells Few /hpf (<5) Urine Bacteria None seen /hpf (None Seen) Urine Glucose Normal mg/dL (Normal) Microbiology Microbiology Date/Time Source Procedure Growth Status 07/09/25 05:05 Nose MRSA Screen - Final Complete 07/07/25 20:35 Voided Urine Urine Culture - Final Complete 07/07/25 13:00 Ascities Fluid Gram Stain - Final Resulted 07/07/25 13:00 Ascities Fluid Body Fluid Culture - Preliminary No growth Resulted 07/06/25 13:03 Blood Blood Culture - Preliminary NO GROWTH AFTER 72 HOURS OF INCUBATION. Resulted Assessment/Plan Assessment/Plan Impression: Acute hypoxic respiratory failure Lung mass Ascites Atelectasis Pneumonia Likely chronic obstructive pulmonary disease Nicotine dependence Events: Remains on supplemental oxygen, 3 LPM NC Taper O2 as tolerated Continue bronchodilators Continue antibiotics IV steroids Incentive spirometry S/p paracentesis by IR, removed 3.2 liters on 07/07/25 Consult IR for lung biopsy Continue diuresis with Lasix as tolerated Monitor renal function. Monitor electrolytes. Supplement as necessary 2D echo report reviewed; LVEF normal at 50-55%. RV severely dilated with severely reduced function. RA severely dilated. Severe TR regurgitation. IVC dilated. Cardiology recs appreciated. Nicotine replacement therapy Labs and imaging reviewed. Rest of plan as noted below. Plan: Supplemental oxygen Titrate to keep O2 sats above 92%. CXR reviewed, demonstrates Hyperinflation of the lungs with diffuse interstitial prominence which could be from fibrotic changes with patchy left upper to mid lung zone and right lower lung zone opacities which may represent areas of scarring. Underlying mass can not be excluded. Blunting of the left costophrenic angle which may be from atelectasis/ scarring/trace effusion. CT chest, abdomen and pelvis reviewed; reveals a 2.6 x 2.5 x 3.9 cm masslike density over the left lower lobe abutting the pleura. Patchy left upper lobe consolidation abutting the fissure may represent pneumonia/atelectasis with a mass lesion not excluded. Severe emphysematous changes of bilateral lungs with scattered bilateral lung atelectasis. Mediastinal lymphadenopathy which may be reactive or neoplastic. Large ascites with mesenteric edema. Dilatation of the pulmonary trunk. Correlate for pulmonary arterial hypertension. See report for full details. Continue bronchodilators. Continue antibiotics Incentive spirometry Send sputum cultures Consult IR for lung biopsy S/p paracentesis by IR. Smoking cessation discussed greater than 10 minutes - smokes 0.5 PPD currently with >30 pack year smoking history Diurese to euvolemia Monitor renal function. Monitor electrolytes. Supplement as necessary. Monitor ins and outs. DVT prophylaxis. Prognosis: Poor given patient's multiple co-morbidities. Rest of plan per hospitalist and other consultants. Thank you, Dr. Gaytan, for allowing me to participate in this patient's care. Further recommendations will depend on the patient's clinical course. Please do not hesitate to contact me if you have any questions or concerns. This medical document was created using an electronic medical record system with [employer] computerized dictation system. Although these documentations are being carefully reviewed, there may still be some phonetic and typographical changes. The errors are purely typographical, due to imperfection on the software program, and do not reflect any compromise in the patient's medical care. Plan discussed with: Patient, Other (YURI Best) Visit Coding Pulmonary Billing Provider: KELLI SIDDIQUI MD Date of Service if different f: Jul 09, 2025 Common Visit Codes: [id number] INP/OBS CARE(HIGH) KELLI SIDDIQUI MD Jul 09, 2025 22:09
[2025-07-10] VITALS (14 sets, daily range): BP systolic 90–107; BP diastolic 53–70; PULSE 88–111; RESP 14–18; TEMP 97.7–98.9; O2SAT 90–100
[2025-07-10] MEDS: PANTOPRAZOLE 40 MG TAB PO SCH (05:29)
[2025-07-10 06:12] LABS: Hematocrit 42.6 % (36.0-46.0); Hemoglobin 13.8 g/dL (12.2-16.2); Mean Corpuscular Hemoglobin 28.9 pg (28.0-32.0); Mean Corpuscular Volume 89.4 fL (80.0-100.0); Nucleated Red Blood Cells % 0.2 %
[2025-07-10 06:24] LABS: Potassium 3.8 mmol/L (3.5-5.1)
[2025-07-10 06:31] LABS: BUN/Creatinine Ratio 29.9 (10.0-20.0); Blood Urea Nitrogen 20 mg/dL (9-23)
[2025-07-10 06:43] LABS: Anion Gap 3.99999 (5-15); Calcium 8.2 mg/dL (8.7-10.4); Chloride 88 mmol/L (98-107); Glucose 109 mg/dL (74-106); Magnesium 1.6 mg/dL (1.6-2.6); Sodium 132 mmol/L (136-145)
[2025-07-10 06:44] LABS: Carbon Dioxide > 40 mmol/L (20-31)
[2025-07-10] MEDS ORDERED: ACETYLCYSTEINE 10 %(100MG/ML) SOL 4ML NEB SCH (09:15)
[2025-07-10] MEDS: FUROSEMIDE 100 MG/10ML VIAL IV ONE (09:47)
[2025-07-10] MEDS: predniSONE 20 MG TAB PO SCH (09:49)
[2025-07-10] MEDS: ONDANSETRON HCL 4 MG/2 ML VIAL IV PRN (10:19)
[2025-07-10] MEDS: ACETYLCYSTEINE 10 %(100MG/ML) SOL 4ML NEB SCH (12:51)
--- NOTE | 2025-07-10 15:25 | DVHPNRES ---
Progress Note Date Seen: Jul 10, 2025 Resident Creating Document: LESLIE NOVOA RESIDENT Medical Necessity Reason Pt with a Central, PICC or Fol: No Subjective Review of Systems This is a 61-year-old female with COPD on home oxygen 2 L per, heart failure, depression, psoriasis, and active smoking who presents with one week of worsening shortness of breath accompanied by progressive bilateral leg swelling and abdominal distention. She reports that her breathing has deteriorated significantly compared to her baseline for last 1 week, and she becomes winded even with minimal activity. Patient also endorse cough with uses 4 times for same duration. Patient also reported having the abdominal distention and leg edema for more than 2 weeks. On 4 the included patient also reported having paracentesis almost 3 years before in [facility]. On arrival she was tachypneic, hypoxic on nasal cannula, and had diffuse wheezing and crackles. ABG showed acute on chronic hypercapnic respiratory failure (pH 7.31, pCO2 64), and BiPAP was initiated. Of the lab workup revealed WBCs 12.1, UDS positive for cocaine, BNP 7 1, troponin I 160> 160> 171. TSH is 1.6. Abdominal US shows ascites, chest x-ray shows bilateral fibrotic changes, bilateral patchy opacity. CT chest/abdomen/pelvis with contrast demonstrated severe emphysematous changes, atelectasis with a possible mass lesion, and right-sided lymphadenopathy concerning for malignancy. The study also showed dilated pulmonary artery, right atrial and ventricular enlargement, hepatomegaly with periportal edema, mesenteric edema, body wall edema, and large ascites, consistent with pulmonary hypertension and systemic volume overload. Also esophageal thickening. Chest x-ray- Hyperinflation of the lungs with diffuse interstitial prominence which could be from fibrotic changes with patchy left upper to mid lung zone and right lower lung zone opacities which may represent areas of scarring. Doppler study of the lower extremity negative for DVT. Past Medical History-COPD on home O2, heart failure, depression, psoriasis. Past Surgical History-No surgeries reported. Medications-Fluticasone inhaler, albuterol inhaler, nicotine patch, clobetasol cream, potassium chloride, atorvastatin, famotidine, sertraline, ibuprofen. Social History-Lives at home. Active smoker. Denies alcohol or illicit drugs. Lives with son Allergy NKDA PCP Dr. Morgan Patient was seen today at bedside Labs and chart reviewed Patient with a still fluid overloaded We will continue diuresis Nursing staffs were reminded regarding strict I and O, fluid restriction 1200 mL/ 24hours Patient is being noncompliant with the treatment and fluid restriction Spoke to patient's sister Shayy, , discussed patient's current medical condition, plan of care, answered questions Objective vital signs Vital Sign Date Time Temp Pulse Resp B/P (MAP) Pulse Ox O2 Delivery O2 Flow Rate FiO2 07/10/25 12:51 91 Nasal Cannula 2.5 07/10/25 12:51 95 18 07/10/25 12:51 28 07/10/25 12:50 97.9 100/70 (80) 97.9 Total Intake and Output 07/09/25 07/09/25 07/10/25 15:00 23:00 07:00 Intake Total 650 ml 500 ml 650 ml Output Total 750 ml Balance 650 ml -250 ml 650 ml medications Current Medications Medications Dose Ordered Sig/Darci Route Start Time Stop Time Status Last Admin Dose Admin Acetaminophen 650 mg Q6HP PRN PO 07/06/25 18:15 Acetaminophen/ Hydrocodone Bitart 1 tab Q4HP PRN PO 07/06/25 18:15 Ondansetron HCl 4 mg Q4HP PRN IV 07/06/25 18:15 07/10/25 10:19 4 MG Morphine Sulfate 2 mg Q4HPRN PRN IV 07/06/25 18:15 Albuterol 2.5 mg Q6HWA [facility] 07/07/25 06:00 07/10/25 12:50 2.5 MG Ipratropium [place] 0.5 mg Q6HWA [facility] 07/07/25 06:00 07/10/25 12:50 0.5 MG Ergocalciferol 50,000 unit Q7D PO 07/07/25 08:15 07/07/25 10:58 50,000 UNIT Diphenhydramine HCl 25 mg Q12HP PRN PO 07/07/25 16:00 07/08/25 20:54 25 MG Magnesium Oxide 800 mg BID PO 07/08/25 09:15 07/10/25 09:47 800 MG Furosemide 40 mg BIDD IV 07/08/25 18:00 07/10/25 05:30 40 MG Spironolactone 25 mg DAILY PO 07/09/25 10:00 07/10/25 09:48 25 MG Levofloxacin 750 mg DAILY PO 07/09/25 10:00 07/10/25 09:48 750 MG Azithromycin 250 mg DAILY PO 07/09/25 10:00 Hold 07/10/25 09:48 250 MG Pantoprazole Sodium 40 mg DAILY@0600 PO 07/10/25 06:00 07/10/25 05:29 40 MG Prednisone 20 mg DAILY PO 07/10/25 10:00 07/10/25 09:49 20 MG Guaifenesin 200 mg Q6HP PO 07/10/25 12:00 07/10/25 12:09 200 MG Acetylcysteine 100 mg Q6HWA NEB 07/10/25 12:00 07/10/25 12:51 100 MG Examination General examination- awake, alert HEENT- PEERLA, no acute nasal discharge Cardiovascular- S1-S2 audible, rate and rhythm regular, no murmur Respiratory- diminished breath sounds, bilateral lung crackles, Gastrointestinal-distended abdomen, ascites present+++ Musculoskeletal-no acute joint swelling or tenderness or redness Lower extremity- bilateral leg edema+++ Neurological- cranial nerves intact, no acute dysarthria or dysphagia Psychiatry- denies depression or SI or HI Skin- no acute rash or purpura laboratory and microbiology Laboratory Tests 07/10/25 05:40 Test 07/10/25 05:40 Range/Units Serum Glucose 109 H 74-106 mg/dL Microbiology Date/Time Source Procedure Growth Status 07/09/25 05:05 Nose MRSA Screen - Final Complete 07/07/25 20:35 Voided Urine Urine Culture - Final Complete 07/07/25 13:00 Ascities Fluid Gram Stain - Final Resulted 07/07/25 13:00 Ascities Fluid Body Fluid Culture - Preliminary No growth Resulted 07/06/25 13:03 Blood Blood Culture - Preliminary NO GROWTH AFTER 72 HOURS OF INCUBATION. Resulted Problem List/Assessment/Plan Problem List/Assessment/Plan Assessment and plan # acute on chronic hypoxic and hypercapnic respiratory failure likely due to acute exertional COPD # acute pneumonia Gram-positive versus Gram-negative # emphysematous lung # suspected left lung -Patient was seen by Radiology for possible lung biopsy, reduced recommended for outpatient PET scan before deciding if patient needs any lying biopsy are not due to emphysema. -continue nebulization as prescribed -on levofloxacin and azithromycin -continue prednisone -MRSA screening negative -blood culture no growth -ascitic fluid no growth -urine culture no growth -continue current conservative management # cor pulmonale likely due to COPD # acute on chronic heart failure systolic versus diastolic # anasarca # suspected pulmonary hypertension # bilateral leg edema likely due to above # IVC dilated # severe tricuspid regurgitation # severely dilated RV and RA -Echo 2D report-LVEF is normal at 50-55%, , RV severely dilated with severely reduced function, RA severely dilated, Severe TR regurgitation, IVC dilated -continue Lasix 40 mg IV b.i.d. -continue nebulization as prescribed -Status post paracentesis by IR, 3.1 L of darinel colored fluid was removed. -ascitic fluid study reveals transudative fluid -strict I&O #NSTEMI type 2 likely due to demand lead ischemia -Echo 2D report-LVEF is normal at 50-55%, , RVseverely dilated with severely reduced function, RA severely dilated, Severe TR regurgitation, IVC dilated --continue current conservative management # suspected pulmonary mass/neoplasm # mediastinal lymphadenopathy -pulmonary on board -Patient was seen by Radiology for possible lung biopsy, reduced recommended for outpatient PET scan before deciding if patient needs any lying biopsy are not due to emphysema. # depression -resume home medication # psoriasis -continue current management #Substance abuse, -UDS positive for cocaine -counseled about the effect of substance abuse and also effect of smoking on health # noncompliant Patient was counseled about the importance of compliance with treatment Goals of care, Code status full code ; PUD prophylaxis: Pantoprazole DVT prophylaxis: Lovenox Plan discussed with Dr. Mancia, nursing staff, Total time spent on patient evaluation, chart review, assessment and plan, discussion discussion >35 minutes Plan discussed with: Patient, Other (RN, SISTER) My Orders My Orders Orders - LESLIE NOVOA Procedure Category Date Status Time Guaifenesin Plain PHA 07/10/25 In Process Liquid (Robitussin Matthew 12:00 Acetylcysteine PHA 07/10/25 In Process Inhalation 10% 12:00 Pharmacy THOM 07/11/25 In Process Clarification: 23:59 Visit Coding STANDARD RES Billing Provider: CHRISTINE MANCIA MD Date of Service if different f: Jul 10, 2025 Common Visit Codes: [id number] INP/OBS CARE(HIGH) LESLIE NOVOA Jul 10, 2025 15:25 CHILO MIRANDA RESIDENT Jul 11, 2025 07:34
--- NOTE | 2025-07-10 23:35 | DVHPN2 ---
Subjective DOS: 07/10/2025 Patient seen and examined at bedside. Remains on supplemental oxygen Overnight events reviewed. Changes from previous H/P or p: No Changes Objective Vitals Vital Signs Date Time Temp Pulse Resp B/P (MAP) Pulse Ox O2 Delivery O2 Flow Rate FiO2 07/10/25 21:00 97.9 102 18 90/61 (71) 93 97.9 07/10/25 20:00 Nasal Cannula* 3 32 Intake/Output Intake and Output 07/10/25 07:00 Intake Total 1800 ml Output Total 750 ml Balance 1050 ml Intake Oral 1800 ml Output Urine Total 750 ml # Voids 9 # Bowel Movements 5 Exam Gen.: Patient lying in bed in no apparent distress. On supplemental oxygen. Head: Normocephalic, atraumatic. Eyes: EOMI/PERRLA. Ears: Normal hearing. Normal anatomy. Neck/trachea: Trachea midline, supple. Nose: Normal external anatomy. Mouth: Moist mucous membranes. Chest: Decreased air entry bilaterally. No wheezing or rhonchi. Cardiovascular: Positive S1, positive S2. Regular rate and rhythm. Abdomen: Positive bowel sounds in all 4 quadrants. Soft, non-tender, non- distended. : Deferred. Rectal: Deferred. Skin: Warm, dry. Intact. Extremities: 2+ radial pulses bilaterally. No lower extremity edema. Neuro: Awake, alert, oriented x3. No gross motor or sensory deficits. Cranial nerves II through XII intact. Gait not assessed. Medications Current Medications Medications Dose Ordered Sig/Darci Route Start Time Stop Time Status Last Admin Dose Admin Acetaminophen 650 mg Q6HP PRN PO 07/06/25 18:15 Acetaminophen/ Hydrocodone Bitart 1 tab Q4HP PRN PO 07/06/25 18:15 Ondansetron HCl 4 mg Q4HP PRN IV 07/06/25 18:15 07/10/25 10:19 4 MG Morphine Sulfate 2 mg Q4HPRN PRN IV 07/06/25 18:15 Albuterol 2.5 mg Q6HWA NEB 07/07/25 06:00 07/10/25 19:24 2.5 MG Ipratropium [place] 0.5 mg Q6HWA NEB 07/07/25 06:00 07/10/25 19:24 0.5 MG Ergocalciferol 50,000 unit Q7D PO 07/07/25 08:15 07/07/25 10:58 50,000 UNIT Diphenhydramine HCl 25 mg Q12HP PRN PO 07/07/25 16:00 07/08/25 20:54 25 MG Magnesium Oxide 800 mg BID PO 07/08/25 09:15 07/10/25 22:05 800 MG Furosemide 40 mg BIDD IV 07/08/25 18:00 07/10/25 18:42 40 MG Spironolactone 25 mg DAILY PO 07/09/25 10:00 07/10/25 09:48 25 MG Levofloxacin 750 mg DAILY PO 07/09/25 10:00 07/10/25 09:48 750 MG Azithromycin 250 mg DAILY PO 07/09/25 10:00 Hold 07/10/25 09:48 250 MG Pantoprazole Sodium 40 mg DAILY@0600 PO 07/10/25 06:00 07/10/25 05:29 40 MG Prednisone 20 mg DAILY PO 07/10/25 10:00 07/10/25 09:49 20 MG Guaifenesin 200 mg Q6HP PO 07/10/25 12:00 07/10/25 23:19 200 MG Acetylcysteine 100 mg Q6HWA NEB 07/10/25 12:00 07/10/25 19:25 100 MG Laboratory Results Laboratory Tests 07/10/25 05:40 Chemistry Test 07/10/25 05:40 Calcium Level 8.2 mg/dL (8.7-10.4) L Magnesium Level 1.6 mg/dL (1.6-2.6) Urinalysis Test 07/06/25 16:54 07/06/25 20:35 Urine Mucus Few (None Seen) Urine Color Colorless (Yellow) Urine Clarity Clear (Clear) Urine pH 5.0 (5.0-9.0) Urine Specific [place] 1.011 (1.001-1.035) Urine Protein Negative (Negative) Urine Ketones Negative (Negative) Urine Blood Negative /uL (Negative) Urine Nitrite Negative (Negative) Urine Bilirubin Negative (Negative) Urine Urobilinogen Normal mg/dL (Negative) Urine Leukocyte Esterase Negative /uL (Negative) Urine RBC <1 /hpf (0 - 4) Urine Microscopic WBC 1 /HPF (0-5) Urine Squamous Epithelial Cells Few /hpf (<5) Urine Bacteria None seen /hpf (None Seen) Urine Glucose Normal mg/dL (Normal) Microbiology Microbiology Date/Time Source Procedure Growth Status 07/09/25 05:05 Nose MRSA Screen - Final Complete 07/07/25 20:35 Voided Urine Urine Culture - Final Complete 07/07/25 13:00 Ascities Fluid Gram Stain - Final Resulted 07/07/25 13:00 Ascities Fluid Body Fluid Culture - Preliminary No growth Resulted 07/06/25 13:03 Blood Blood Culture - Preliminary NO GROWTH AFTER 72 HOURS OF INCUBATION. Resulted Assessment/Plan Assessment/Plan Impression: Acute hypoxic respiratory failure Lung mass Ascites Atelectasis Pneumonia Likely chronic obstructive pulmonary disease Nicotine dependence Events: Remains on supplemental oxygen, 3 LPM NC Taper O2 as tolerated Continue bronchodilators/Pulmicort Continue antibiotics IV steroids Incentive spirometry S/p paracentesis by IR, removed 3.2 liters on 07/07/25 Consult IR for lung biopsy Continue diuresis with Lasix as tolerated Monitor renal function. Monitor electrolytes. Supplement as necessary Maintain euvolemia 2D echo report reviewed; LVEF normal at 50-55%. RV severely dilated with severely reduced function. RA severely dilated. Severe TR regurgitation. IVC dilated. Cardiology recs appreciated. Nicotine replacement therapy Labs and imaging reviewed. Rest of plan as noted below. Plan: Supplemental oxygen Titrate to keep O2 sats above 92%. CXR reviewed, demonstrates Hyperinflation of the lungs with diffuse interstitial prominence which could be from fibrotic changes with patchy left upper to mid lung zone and right lower lung zone opacities which may represent areas of scarring. Underlying mass can not be excluded. Blunting of the left costophrenic angle which may be from atelectasis/ scarring/trace effusion. CT chest, abdomen and pelvis reviewed; reveals a 2.6 x 2.5 x 3.9 cm masslike density over the left lower lobe abutting the pleura. Patchy left upper lobe consolidation abutting the fissure may represent pneumonia/atelectasis with a mass lesion not excluded. Severe emphysematous changes of bilateral lungs with scattered bilateral lung atelectasis. Mediastinal lymphadenopathy which may be reactive or neoplastic. Large ascites with mesenteric edema. Dilatation of the pulmonary trunk. Correlate for pulmonary arterial hypertension. See report for full details. Continue bronchodilators. Continue antibiotics Incentive spirometry Send sputum cultures Consult IR for lung biopsy S/p paracentesis by IR. Smoking cessation discussed greater than 10 minutes - smokes 0.5 PPD currently with >30 pack year smoking history Diurese to euvolemia Monitor renal function. Monitor electrolytes. Supplement as necessary. Monitor ins and outs. DVT prophylaxis. Prognosis: Poor given patient's multiple co-morbidities. Rest of plan per hospitalist and other consultants. Thank you, Dr. Gaytan, for allowing me to participate in this patient's care. Further recommendations will depend on the patient's clinical course. Please do not hesitate to contact me if you have any questions or concerns. This medical document was created using an electronic medical record system with [employer] dictation system. Although these documentations are being carefully reviewed, there may still be some phonetic and typographical changes. The errors are purely typographical, due to imperfection on the software program, and do not reflect any compromise in the patient's medical care. Plan discussed with: Patient, Other (YURI Best) Visit Coding Pulmonary Billing Provider: KELLI SIDDIQUI MD Date of Service if different f: Jul 10, 2025 Common Visit Codes: [id number] INP/OBS CARE(HIGH) KELLI SIDDIQUI MD Jul 10, 2025 23:35
[2025-07-11] VITALS (15 sets, daily range): BP systolic 96–124; BP diastolic 60–73; PULSE 53–116; RESP 15–20; TEMP 36.7; O2SAT 90–100
[2025-07-11 07:08] LABS: Hematocrit 44.1 % (36.0-46.0); Hemoglobin 14.0 g/dL (12.2-16.2); Mean Corpuscular Hemoglobin 28.3 pg (28.0-32.0); Mean Corpuscular Volume 89.3 fL (80.0-100.0); Nucleated Red Blood Cells % 0.1 %
[2025-07-11 07:15] LABS: Potassium 3.9 mmol/L (3.5-5.1)
[2025-07-11 07:22] LABS: BUN/Creatinine Ratio 17.7 (10.0-20.0); Blood Urea Nitrogen 11 mg/dL (9-23); Magnesium 1.8 mg/dL (1.6-2.6)
[2025-07-11 07:33] LABS: Anion Gap 8.99999 (5-15); Calcium 8.3 mg/dL (8.7-10.4); Chloride 85 mmol/L (98-107); Glucose 64 mg/dL (74-106); Sodium 134 mmol/L (136-145)
[2025-07-11 07:34] LABS: Carbon Dioxide > 40 mmol/L (20-31)
[2025-07-11 08:24] LABS: Base Excess 14.0 mmol/L (-2.0-3.0)
[2025-07-11 08:46] LABS: Base Excess 19.7 mmol/L (-2.0-3.0)
[2025-07-11] MEDS: ACETAMINOPHEN 325 MG TAB PO PRN (09:53)
[2025-07-11 10:20] LABS: Base Excess 18.3 mmol/L (-2.0-3.0)
[2025-07-11] MEDS ORDERED: PRED20TA2 PO (13:07)
[2025-07-11] MEDS ORDERED: SPIR25TA PO (13:07)
[2025-07-11] MEDS ORDERED: LEVO250T58 PO (13:07)
[2025-07-11] MEDS ORDERED: ERGO1CAP23 PO (13:07)
[2025-07-11] MEDS ORDERED: FURO40TA4 PO (13:07)
--- NOTE | 2025-07-11 13:09 | DVHDSRES ---
Discharge Summary Date of Admission Resident Creating Document: FIDENCIOPATRICIASHELLCHILO RESIDENT Jul 06, 2025 at 18:13 Date of Discharge: Jul 11, 2025 Labs/Diagnostic Data: Laboratory Results Test 07/11/25 10:07 07/11/25 05:17 07/08/25 23:12 07/08/25 09:55 Blood Gas Specimen Type Arterial Blood Gas Sample Site Right radial Blood Gas Patient Temperature 37.0 Arterial Blood Date Drawn [id number] Arterial Blood pH 7.451 (7.350-7.450) Arterial Blood Partial Pressure CO2 68.3 mmHg (32.0-45.0) Arterial Blood Partial Pressure O2 74.1 mmHg (83.0-108.0) Arterial Blood HCO3 46.5 mmol/L (21.0-28.0) Arterial Blood Oxygen Saturation 94.1 % (94.0-98.0) Arterial Blood Base Excess 18.3 mmol/L (-2.0-3.0) Arterial Blood Oxyhemoglobin 92.2 % (94.0-98.0) Arterial Blood Carboxyhemoglobin 1.6 % (0.5-1.5) Arterial Blood Methemoglobin 0.4 % (0.0-1.5) Arterial Blood Deoxyhemoglobin 5.8 % (0.0-5.0) Gino Test Yes Blood Gas Total Hemoglobin 15.00 g/dL (12.0-16.0) Blood Gas Modality Nasal cannula FiO2 % 40.0 Blood Gas Critical Value Read Back Yes Blood Gas Notified Whom vishal Abbasi Blood Gas Notified Time [id number] Blood Gas Notified By Division Leader elsie eli White Blood Count 8.4 10^3/uL (4.4-10.8) Red Blood Count 4.94 10^6/uL (4.0-5.20) Hemoglobin 14.0 g/dL (12.2-16.2) Hematocrit 44.1 % (36.0-46.0) Mean Corpuscular Volume 89.3 fL (80.0-100.0) Mean Corpuscular Hemoglobin 28.3 pg (28.0-32.0) Mean Corpuscular Hemoglobin Concent 31.7 g/dL (32.0-36.0) Red Cell Distribution Width 16.0 % (11.8-14.3) Platelet Count 212 10^3/uL (140-450) Mean Platelet Volume 8.9 fL (6.9-10.8) Neutrophils (%) (Auto) 65.4 % (37.0-80.0) Lymphocytes (%) (Auto) 23.5 % (10.0-50.0) Monocytes (%) (Auto) 10.7 % (0.0-12.0) Eosinophils (%) (Auto) 0.2 % (0.0-7.0) Basophils (%) (Auto) 0.2 % (0.0-2.0) Neutrophils # (Auto) 5.5 10 ^3/uL (1.6-8.6) Lymphocytes # (Auto) 2.0 10 ^3/uL (0.4-5.4) Monocytes # (Auto) 0.9 10 ^3/uL (0-1.3) Eosinophils # (Auto) 0 10 ^3/uL (0-0.8) Basophils # (Auto) 0 10 ^3/uL (0-0.2) Nucleated Red Blood Cells 0.1 % Sodium Level 134 mmol/L (136-145) Potassium Level 3.9 mmol/L (3.5-5.1) Chloride Level 85 mmol/L (98-107) Carbon Dioxide Level > 40 mmol/L (20-31) Anion Gap 8.27770 (5-15) Blood Urea Nitrogen 11 mg/dL (9-23) Creatinine 0.62 mg/dL (0.550-1.02) Glomerular Filtration Rate Calc 101 mL/min (>90) BUN/Creatinine Ratio 17.7 (10.0-20.0) Serum Glucose 64 mg/dL (74-106) Calcium Level 8.3 mg/dL (8.7-10.4) Magnesium Level 1.8 mg/dL (1.6-2.6) Vancomycin Level Trough 10.6 ug/mL (5-10) Blood Gas Liter Flow 3.00 Test 07/08/25 06:15 07/07/25 13:00 07/07/25 06:41 07/06/25 20:35 Phosphorus Level 3.3 mg/dL (2.4-5.1) Total Bilirubin 0.4 mg/dL (0.2-1.0) Aspartate Amino Transferase (AST) 33 U/L (13-40) Alanine Aminotransferase (ALT) 18 U/L (7-40) Alkaline Phosphatase 87 U/L (46-116) Total Protein 8.0 g/dL (5.7-8.2) Albumin 3.2 g/dL (3.2-4.8) Body Fluid Source Peritoneal fluid Body Fluid pH 8.0 Body Fluid WBC (Manual) 441 CUMM (0-200) Body Fluid RBC (Manual) 6062 CUMM (0-2000) Body Fluid Mononuclear Cells 91 % Body Fluid Polymorphonuclear Cells 9 % (0-25) Body Fluid Glucose 141 mg/dL (.) Body Fluid Total Protein 2.7 g/dL (.) Body Fluid Lactate Dehydrogenase 114 IU/L (.) Prothrombin Time 12.6 sec (9.3-11.8) Prothrombin Time INR 1.21 (0.9-1.15) Activated Partial Thromboplast Time 30.6 SEC (24.5-34.5) Lactic Acid Level 1.8 mmol/L (0.4-2.0) Triglycerides Level 67 mg/dL (< 150) Cholesterol Level 78 mg/dL (< 200) LDL Cholesterol 47 mg/dL (< 100) HDL Cholesterol 21 mg/dL (40-59) Vitamin B12 Level 275 pg/mL (211-911) Vitamin D 25-Hydroxy 18.3 ng/mL (30.0-100) Folic Acid 9.38 ng/mL (>5.38) Thyroid Stimulating Hormone (TSH) 1.62 uIU/mL (0.55-4.78) Hepatitis A IgM Antibody Negative Hepatitis B Surface Antigen Negative (Negative) Hepatitis B Core IgM Antibody Negative (Negative) Hepatitis C Antibody Negative (Negative) Urine Color Colorless (Yellow) Urine Clarity Clear (Clear) Urine pH 5.0 (5.0-9.0) Urine Specific [place] 1.011 (1.001-1.035) Urine Protein Negative (Negative) Urine Ketones Negative (Negative) Urine Blood Negative /uL (Negative) Urine Nitrite Negative (Negative) Urine Bilirubin Negative (Negative) Urine Urobilinogen Normal mg/dL (Negative) Urine Leukocyte Esterase Negative /uL (Negative) Urine RBC <1 /hpf (0 - 4) Urine Microscopic WBC 1 /HPF (0-5) Urine Squamous Epithelial Cells Few /hpf (<5) Urine Bacteria None seen /hpf (None Seen) Urine Glucose Normal mg/dL (Normal) Urine Opiates Screen Neg (NEGATIVE) Urine Fentanyl Screen Neg (NEGATIVE) Urine Barbiturates Screen Neg (NEGATIVE) Urine Phencyclidine Screen Neg (NEGATIVE) Urine Amphetamines Screen Neg (NEGATIVE) Urine Benzodiazepines Screen Neg (NEGATIVE) Urine Cocaine Screen Pos (NEGATIVE) Urine Cannabinoids Screen Neg (NEGATIVE) Influenza Type A Antigen Negative (Negative) Influenza Type B Antigen Negative (Negative) SARS-CoV-2 Antigen (Rapid) Negative (NEGATIVE) Test 07/06/25 16:54 07/06/25 15:55 07/06/25 13:47 07/06/25 12:50 Urine Mucus Few (None Seen) Troponin I High Sensitivity 171 ng/L (</=34) Lipase 19 U/L (12-53) Hemoglobin A1c 6.4 % A1C (<5.7) B-Type Natriuretic Peptide 701.28 pg/mL (0-100) Other Laboratory Tests 07/11/25 05:17 Brief Hx & Hospital Course: Shantel Park is a 61-year-old female who presents to the ED with chief complaint of progressive dyspnea form functional class II to functional class IV which started 1 week before her admission, associated with non productive cough, bilateral leg swelling and abdominal distention. Patient denies any other associated symptoms. Upon arrival to ED patient was desaturating, with ABG compatible to respiratory acidosis with hypoxemia, requiring BIPAP. Past Medical History: Dyslipidemia, COPD on home O2, heart failure, depression, psoriasis. Surgical History: thoracentesis 3 years ago Family history: Non contributory Social History: Lives in [place] with son (JEANK, also sister). Active smoker (approximately 45 pack year history of smoking). Denies current alcohol or other drug abuse (UDS positive for cocaine) Allergy: Denies Medications: Fluticasone inhaler, albuterol inhaler, nicotine patch, clobetasol cream, potassium chloride, atorvastatin, famotidine, sertraline, ibuprofen. PCP Dr. Morgan Brief hospital course: Acute respiratory failure secondary to community acquired pneumonia, COPD exacerbation, acute on chronic diastolic heart failure/cor pulmonale associated with sepsis and NSTEMI type II, requiring during hospitalization empiric IV antibiotics (azithromycin and Levofloxacin), IV steroids, oxygen therapy (from BIPAP, discharged with nasal cannula at 5 L/min), IV diuretics, fluid restriction and bronchodilators. Completed Chest/abdomen/pelvis CT with contrast which showed severe emphysematous changes, atelectasis with a possible mass lesion, right-sided lymphadenopathy concerning for malignancy, signs of pulmonary hypertension/systemic overload (dilated pulmonary artery, right atrial and ventricular enlargement, hepatomegaly with periportal edema, mesenteric edema, body wall edema, and large ascites), and esophageal thickening. Evaluated by pulmonology and interventional radiology, recommending follow up as outpatient so as to complete PET scan and eventually evaluate need of lung biopsy Completed paracentesis obtaining 31L of darinel fluid (no growth). Ruled out DVT with Doppler of lower limbs. Echocardiogram showed LVEF 50-55%, , RV severely dilated with severely reduced function, RA severely dilated, Severe TR regurgitation, IVC dilated, interpreted as pulmonary hypertension type III (cor pulmonale). 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 Patient hemodynamically stable, asymptomatic, improved fluid overload, with adjusted home oxygen, in conditions to be discharged home. Was granted under optimal medical therapt (Furosemide, Spironolactone, Levofloxacin and dose pack prednisone), gave advice on healthy life style habits (fluid restriction, avoid salty food and avoiding polysubstance abuse), and follow up as outpatient with PCP, pulmonology, cardiology and obtaining PET scan to evaluate lung mass. DIAGNOSIS # Acute on chronic hypoxic and hypercapnic respiratory failure likely due to acute exertional COPD # Acute community acquired pneumonia Gram-positive versus Gram-negative # NSTEMI type II # Sepsis secondary to community acquired pneumonia # Emphysematous lung # Rule out pulmonary malignancy - pending PET as outpatient # Cor pulmonale likely due to COPD # Acute on chronic systolic heart failure systolic (HFpEF 50-55%, RVSP 54mmHg) # Probable pulmonary hypertension type III # Severe tricuspid regurgitation # NSTEMI type 2 likely due to demand lead ischemia # Depression # Psoriasis # Substance abuse (cocaine and tobacco) # Noncompliant Goals of care discussed with patient for over 18 minutes: Full code status Discussed plan with Dr. Mancia, patient and nurses Physical Examination Patient lying in bed, in no acute distress General: Lucid, afebrile, mucosae are moist Cardiovascular: Normal S1 and S2. No murmurs, gallops or rubs Respiratory: Normal ventilation mechanics. Reduced lung sounds with scattered mild expiratory wheezing Abdomen: Soft, nontender, no organomegaly, normal bowel sounds MSK/skin: Mobilizes 4 limbs. Skin is dry and warm. Bilateral perimalleolar pitting edema. Neurological: Oriented in 3 spheres. No motor no sensitive deficits. Pupils are isocoric and reactive Operations or Procedures ULTRASOUND ABDOMEN limited, 4 QUADRANTS INDICATION: FLUID CHECK FOR PARA Evaluate for ascites. TECHNIQUE: The four quadrants of the abdomen were scanned in glez-scale to assess for the presence of ascites. No solid organ assessment was performed. Ascites was noted in all 4 quadrants. FINDINGS/IMPRESSIONS: Ascites visualized in all 4 quadrants. No measurements or volumes obtained. ATED BY: BENITO BURGOS Jr., DO DICTATED DATE/TIME: 07/06/252127 HEST RADIOGRAPH Indication: sob Technique: Single frontal view of the chest was obtained Comparison: None FINDINGS: Lines and Tubes: None Lungs: Hyperinflation of the lungs. Diffuse interstitial prominence. Patchy opacities of the right lower lobe and left upper to mid lung zone. Blunting of the left costophrenic angle. No pneumothorax. Cardiomediastinal contours: Unremarkable Bones: No acute osseous abnormality. IMPRESSION: Hyperinflation of the lungs with diffuse interstitial prominence which could be from fibrotic changes with patchy left upper to mid lung zone and right lower lung zone opacities which may represent areas of scarring. Underlying mass can not be excluded. CT is recommended for further evaluation. Blunting of the left costophrenic angle which may be from atelectasis/ scarring/trace effusion. ATED BY: YULY JOSEPH DO DICTATED DATE/TIME: 07/06/25 1336 Exam: CT CT CHEST/AB/PL W CON- IV ONLY History: better evaluate x-ray findings, worsening abdominal tenderne Comparison Study: None TECHNIQUE: Multidetector CT of the chest, abdomen and pelvis with contrast IV contrast. Axial, coronal and sagittal multiplanar reformats were obtained from the axial data set by the technologist. Radiation Dose Information: CT Dose: CTDI volume is 11.21 mGy. Dose-length product is 771.15 mGy*cm FINDINGS: Chest: Thyroid gland is unremarkable. Mild cardiomegaly enlargement of the right atrium and ventricle. Dilatation of the pulmonary trunk up to 36 mm. No Pulmonary embolism. No aortic aneurysm or dissection. Mediastinal lymphadenopathy measuring up to 1.5 cm. Severe emphysematous changes of bilateral lungs with bilateral lung scarring. 2.6 x 2.5 x 3.9 cm masslike density over the left lower lobe abutting the pleura. Patchy left upper lobe consolidation abutting the fissure. No pneumothorax. Trace left-sided pleural effusion. Small right posterior diaphragmatic hernia containing Segmental bowel and mesenteric fat. 0.5 x 0.9 cm fatty lesion within the left breast which may represent lipoma. Additional 0.6 x 1 cm fatty lesion is noted within the left breast. Significant body wall edema. No evidence of acute osseous abnormalities. Abdomen and pelvis: Diffuse mesenteric edema with large volume ascites. Mild hepatomegaly with hepatic steatosis. Otherwise, liver, spleen, pancreas and adrenal glands are unremarkable. The gallbladder is decompressed and surrounded by ascitic fluid. Subcentimeter hypodense left renal lesion that is too small to characterize. Otherwise, kidneys unremarkable. Mild wall thickening of the Urinary bladder. Uterus and adnexa unremarkable. Wall thickening of the distal esophagus. Hyperdense material within the distal stomach which may represent Ingested material. Wall thickening of the duodenum and proximal jejunum. The remainder of the small bowel loops are fluid-filled and nondistended. Appendix is not completely visualized. Limited evaluation of the partially visualized Appendix due to surrounding ascites. Sigmoid diverticulosis limited evaluation for diverticulitis given surrounding ascites. Small amount of fecal material within the colon. No evidence of intraperitoneal free air. No evidence of aortic aneurysm or dissection. Mild atherosclerotic calcification of the aorta and bilateral iliacs. Limited evaluation for lymphadenopathy. Small ascitic fluid containing umbilical hernia. There is about 30% loss of vertebral body height of L5 of unknown chronicity, likely chronic. Otherwise, no evidence of acute osseous abnormalities. Significant body wall edema. IMPRESSION: 2.6 x 2.5 x 3.9 cm masslike density over the left lower lobe abutting the pleura. Patchy left upper lobe consolidation abutting the fissure may represent pneumonia/atelectasis with a mass lesion not excluded. Severe emphysematous changes of bilateral lungs with scattered bilateral lung atelectasis. Mediastinal lymphadenopathy which may be reactive or neoplastic. Significant body wall edema. Large ascites with mesenteric edema. Wall thickening of the proximal small bowel loops which may be due to inadequate distention Slight surrounding ascites with enteritis not excluded. Wall thickening of the distal esophagus. Correlate for esophagitis. Cardiomegaly with enlargement of the right atrium and right ventricle. Dilatation of the pulmonary trunk. Correlate for pulmonary arterial hypertension. Additional findings as above. ATED BY: YULY JOSEPH DO DICTATED DATE/TIME: 07/06/25 1706 US PARACENTESIS, HISTORY: ASCITES PROCEDURE: Informed consent was obtained. The patient was placed in supine position. A limited localization ultrasound of the abdomen was obtained, and the skin site over the largest pocket of fluid was marked and entry site was prepped with chlorhexidine which was allowed to dry and draped in the usual sterile fashion. Time out was performed. Following administration of 1% lidocaine local anesthetic, a 5 Setswana centesis needle catheter was percutaneously inserted into the peritoneal collection until fluid was aspirated. The catheter was advanced into the fluid collection and the needle removed. About 3150 cc of fluid was aspirated and specimen sent for appropriate cultures/cytology/cultures and cytology. The catheter was then removed and a sterile dressing applied. No immediate complication was identified. FINDINGS: Limited ultrasound imaging demonstrates mild to moderate ascites. Aspirated fluid was clear and serous. IMPRESSION: US-guided paracentesis with 3.2L removed. ATED BY: NIKOLAI TEJEDA MD DICTATED DATE/TIME: 07/07/25 1315 CLINICAL HISTORY: b/l leg swelling TECHNIQUE: Color and duplex doppler imagine of the bilateral lower extremity veins was performed. Vessel compression and augmentation if possible was also performed. COMPARISON: None FINDINGS: Right Lower Extremity: Right common femoral vein: Normal compressibility and flow. Right superficial femoral vein: Normal compressibility and flow. Right popliteal vein: Normal compressibility and flow. Left Lower Extremity: Left common femoral vein: Normal compressibility and flow. Left superficial femoral vein: Normal compressibility and flow. Left popliteal vein: Normal compressibility and flow. IMPRESSION: NO SONOGRAPHIC EVIDENCE FOR DEEP VENOUS THROMBOSIS IN THE BILATERAL LOWER EXTREMITY VEINS. ATED BY: CRISTINA RADER MD DICTATED DATE/TIME: 07/07/25 1033 EXAM: Two-dimensional and M-mode echocardiogram with Doppler, color Doppler and Bubble Study. Blood Pressure: 111/75 mmHg INDICATION Dyspnea Heart Failure RISK FACTORS Height: 5'6", Weight: 138 DIMENSIONS LVDd 4.5 (3.8-5.7cm) LA (2D) 3.8 (1.9-4.0cm) Aortic Root 3.2 (2.0- 3.7cm) LVDs 3.3 (2.5-4.0cm) LA (MM) (1.9-4.0cm) Aortic Cusp Exc 1.6 (1.5- 2.0cm) EF (%) 52.0 (55-70%) Rt. Atrium 6.2 (1.9-4.0cm) Asc. Aorta 2.9 cm IVSd 0.7 (0.7-1.1cm) RV (D) 4.6 (1.8-2.4cm) PWd 0.8 (0.7-1.1cm) Mitral Valve Mitral Mitral Stenosis E/A ratio 0.0 2D MVA cm2 Aortic Valve Aortic Valve Aortic Stenosis V1 0.71m/s AO Mean GR. 2mmHg V2 0.87m/s AO Peak GR. 3mmHg LVOT Diameter 1.9 (1.8-2.4cm) Doppler ELEAZAR 2.31cm2 Pulmonic Valve V2 0.76m/s Tricuspid Valve TR Velocity 2.58m/s RVSP 54mmHg ATRIA Injection of contrast documented an interatrial shunt. Other Information Quality : Technically Limited Rhythm : Conclusion LVEF is normal at 50-55%, Right ventricle severely dilated with severely reduced function Right atrium severely dilated Severe tricuspid regurgitation IVC dilated ascites and large left pleural effusion present SIGNED BY: OSORIO MOTA MD SIGNED DATE/TIME: 07/08/25 1721 Condition at Discharge: Stable Final Diagnosis/Problems List # Acute on chronic hypoxic and hypercapnic respiratory failure likely due to acute exertional COPD # Acute community acquired pneumonia Gram-positive versus Gram-negative # NSTEMI type II # Sepsis secondary to community acquired pneumonia # Emphysematous lung # Rule out pulmonary malignancy - pending PET as outpatient # Cor pulmonale likely due to COPD # Acute on chronic systolic heart failure systolic (HFpEF 50-55%, RVSP 54mmHg) # Probable pulmonary hypertension type III # Severe tricuspid regurgitation # NSTEMI type 2 likely due to demand lead ischemia # Depression # Psoriasis # Substance abuse (cocaine and tobacco) # Noncompliant Discharge Disposition: Home Discharge Instruct/Medications Diet: Cardiac 2g Na,low cholest Activity: No Restrictions, As Tolerated Follow Up/Referral: PCP Cardiology GI specialist Pulmonology Medications: Per EMR Scheduled Albuterol Sulfate (Albuterol Sulfate Hfa), 2 PUFF PO TID, (Reported) Atorvastatin Calcium (Atorvastatin Calcium), 1 TAB PO DAILY, (Reported) Clobetasol Propionate (Clobetasol Propionate), TOP BID, (Reported) Ergocalciferol (Vitamin D 44936 Unit), 50,000 UNIT PO Q7D Famotidine (Pepcid Tablet), 1 TAB PO BID, (Reported) Fluticasone Propionate (Fluticasone Propionate Hf), 1 PUFF PO BID, (Reported) Furosemide (Furosemide), 1 TAB PO DAILY, (Reported) Furosemide (Furosemide), 40 MG PO BIDD Levofloxacin Hemihydrate (Levofloxacin), 750 MG PO DAILY Nicotine (Nicotine Transdermal Syst), 1 PATCH TOP DAILY, (Reported) Potassium Chloride (Klor-Con M10), 8 MEQ PO DAILY, (Reported) Prednisone (Prednisone), 20 MG PO DAILY Sertraline HCl (Sertraline HCl), 1 TAB PO DAILY, (Reported) Spironolactone (Aldactone), 25 MG PO DAILY Discharge Statement: "Patient was advised to return to the ER or call 911 if any headaches, dizziness, shortness of breath, chest pain, abdominal pain, bleeding, fevers, or worsening of medical condition. Patient was counseled about treatment plan, medications, possible side effects, patientverbalized understanding. All questions were answered to the best of my ability. This discharge took greater then 30 minutes in planning, reviewing documentation, counseling the patient, and discussing with other team members." ASSESSMENT ASSESSMENT Assessment Acute on chronic respiratory failure due to PNA and CHF exacerbation Visit Coding STANDARD RES Billing Provider: CHRISTINE MANCIA MD Date of Service if different f: Jul 11, 2025 Common Visit Codes: 20183-TCY/OBS DISCH DAY >30min CHILO MIRANDA RESIDENT Jul 11, 2025 13:09
[2025-07-11] MEDS: FUROSEMIDE 40 MG TAB PO SCH (18:19)
[2025-07-11] MEDS: PNEUMOCOCCAL VACC POLYS 25 MCG/0.5 ML VIAL IM ONE (22:00)
[2025-07-11] MEDS: INFLUENZA TRIVALENT 2024-2025 0.5 ML INJ IM ONE (22:00)
--- NOTE | 2025-07-11 23:51 | DVHPN2 ---
Subjective DOS: 07/11/2025 Patient seen and examined at bedside. Remains on supplemental oxygen Overnight events reviewed. Changes from previous H/P or p: No Changes Objective Vitals Vital Signs Date Time Temp Pulse Resp B/P (MAP) Pulse Ox O2 Delivery O2 Flow Rate FiO2 07/11/25 21:00 97.4 105 18 98/72 (81) 90 97.4 07/11/25 19:15 Nasal Cannula 4.0 07/11/25 19:15 36 Intake/Output Intake and Output 07/11/25 07:00 Intake Total 1450 ml Output Total 6100 ml Balance -4650 ml Intake Oral 1450 ml Output Urine Total 6100 ml # Bowel Movements 1 Exam Gen.: Patient lying in bed in no apparent distress. On supplemental oxygen. Head: Normocephalic, atraumatic. Eyes: EOMI/PERRLA. Ears: Normal hearing. Normal anatomy. Neck/trachea: Trachea midline, supple. Nose: Normal external anatomy. Mouth: Moist mucous membranes. Chest: Decreased air entry bilaterally. No wheezing or rhonchi. Cardiovascular: Positive S1, positive S2. Regular rate and rhythm. Abdomen: Positive bowel sounds in all 4 quadrants. Soft, non-tender, non- distended. : Deferred. Rectal: Deferred. Skin: Warm, dry. Intact. Extremities: 2+ radial pulses bilaterally. No lower extremity edema. Neuro: Awake, alert, oriented x3. No gross motor or sensory deficits. Cranial nerves II through XII intact. Gait not assessed. Medications Current Medications Medications Dose Ordered Sig/[facility] Route Start Time Stop Time Status Last Admin Dose Admin Acetaminophen 650 mg Q6HP PRN PO 07/06/25 18:15 07/11/25 09:53 650 MG Acetaminophen/ Hydrocodone Bitart 1 tab Q4HP PRN PO 07/06/25 18:15 Ondansetron HCl 4 mg Q4HP PRN IV 07/06/25 18:15 07/10/25 10:19 4 MG Morphine Sulfate 2 mg Q4HPRN PRN IV 07/06/25 18:15 Albuterol 2.5 mg Q6HWA NEB 07/07/25 06:00 07/11/25 18:00 2.5 MG Ipratropium [place] 0.5 mg Q6HWA [facility] 07/07/25 06:00 07/11/25 18:00 0.5 MG Ergocalciferol 50,000 unit Q7D PO 07/07/25 08:15 07/07/25 10:58 50,000 UNIT Diphenhydramine HCl 25 mg Q12HP PRN PO 07/07/25 16:00 07/08/25 20:54 25 MG Magnesium Oxide 800 mg BID PO 07/08/25 09:15 07/11/25 23:15 800 MG Spironolactone 25 mg DAILY PO 07/09/25 10:00 07/11/25 09:54 25 MG Levofloxacin 750 mg DAILY PO 07/09/25 10:00 07/11/25 09:54 750 MG Pantoprazole Sodium 40 mg DAILY@0600 PO 07/10/25 06:00 07/11/25 05:28 40 MG Prednisone 20 mg DAILY PO 07/10/25 10:00 07/11/25 09:54 20 MG Guaifenesin 200 mg Q6HP PO 07/10/25 12:00 07/11/25 18:19 200 MG Acetylcysteine 100 mg Q6HWA NEB 07/10/25 12:00 07/11/25 18:00 100 MG Furosemide 40 mg BIDD PO 07/11/25 18:00 07/11/25 18:19 40 MG Laboratory Results Laboratory Tests 07/11/25 05:17 Chemistry Test 07/11/25 05:17 Calcium Level 8.3 mg/dL (8.7-10.4) L Magnesium Level 1.8 mg/dL (1.6-2.6) Urinalysis Test 07/06/25 16:54 07/06/25 20:35 Urine Mucus Few (None Seen) Urine Color Colorless (Yellow) Urine Clarity Clear (Clear) Urine pH 5.0 (5.0-9.0) Urine Specific [place] 1.011 (1.001-1.035) Urine Protein Negative (Negative) Urine Ketones Negative (Negative) Urine Blood Negative /uL (Negative) Urine Nitrite Negative (Negative) Urine Bilirubin Negative (Negative) Urine Urobilinogen Normal mg/dL (Negative) Urine Leukocyte Esterase Negative /uL (Negative) Urine RBC <1 /hpf (0 - 4) Urine Microscopic WBC 1 /HPF (0-5) Urine Squamous Epithelial Cells Few /hpf (<5) Urine Bacteria None seen /hpf (None Seen) Urine Glucose Normal mg/dL (Normal) Blood Gas Results Test 07/11/25 08:09 07/11/25 08:34 07/11/25 10:07 Arterial Blood pH 7.461 (7.350-7.450) 7.486 (7.350-7.450) 7.451 (7.350-7.450) FiO2 % 32.0 32.0 40.0 Microbiology Microbiology Date/Time Source Procedure Growth Status 07/09/25 05:05 Nose MRSA Screen - Final Complete 07/07/25 20:35 Voided Urine Urine Culture - Final Complete 07/07/25 13:00 Ascities Fluid Gram Stain - Final Resulted 07/07/25 13:00 Ascities Fluid Body Fluid Culture - Preliminary No growth Resulted 07/06/25 13:03 Blood Blood Culture - Final NO GROWTH AFTER 5 DAYS OF INCUBATION. Complete Assessment/Plan Assessment/Plan Impression: Acute hypoxic respiratory failure Lung mass Ascites Atelectasis Pneumonia Likely chronic obstructive pulmonary disease Nicotine dependence Events: Remains on supplemental oxygen, 3 LPM NC Taper O2 as tolerated Continue bronchodilators/Pulmicort Complete steroid and abx course Incentive spirometry S/p paracentesis by IR, removed 3.2 liters on 07/07/25 Consult IR for lung biopsy Continue diuresis with Lasix as tolerated Monitor renal function. Monitor electrolytes. Supplement as necessary Maintain euvolemia 2D echo report reviewed; LVEF normal at 50-55%. RV severely dilated with severely reduced function. RA severely dilated. Severe TR regurgitation. IVC dilated. Cardiology recs appreciated. Nicotine replacement therapy Patient is stable for discharge from the pulmonary standpoint. Disposition per hospitalist. Labs and imaging reviewed. Rest of plan as noted below. Plan: Supplemental oxygen Titrate to keep O2 sats above 92%. CXR reviewed, demonstrates Hyperinflation of the lungs with diffuse interstitial prominence which could be from fibrotic changes with patchy left upper to mid lung zone and right lower lung zone opacities which may represent areas of scarring. Underlying mass can not be excluded. Blunting of the left costophrenic angle which may be from atelectasis/ scarring/trace effusion. CT chest, abdomen and pelvis reviewed; reveals a 2.6 x 2.5 x 3.9 cm masslike density over the left lower lobe abutting the pleura. Patchy left upper lobe consolidation abutting the fissure may represent pneumonia/atelectasis with a mass lesion not excluded. Severe emphysematous changes of bilateral lungs with scattered bilateral lung atelectasis. Mediastinal lymphadenopathy which may be reactive or neoplastic. Large ascites with mesenteric edema. Dilatation of the pulmonary trunk. Correlate for pulmonary arterial hypertension. See report for full details. Continue bronchodilators. Continue antibiotics Incentive spirometry Send sputum cultures Consult IR for lung biopsy S/p paracentesis by IR. Smoking cessation discussed greater than 10 minutes - smokes 0.5 PPD currently with >30 pack year smoking history Diurese to euvolemia Monitor renal function. Monitor electrolytes. Supplement as necessary. Monitor ins and outs. DVT prophylaxis. Prognosis: Poor given patient's multiple co-morbidities. Rest of plan per hospitalist and other consultants. Thank you, Dr. Gaytan, for allowing me to participate in this patient's care. Further recommendations will depend on the patient's clinical course. Please do not hesitate to contact me if you have any questions or concerns. This medical document was created using an electronic medical record system with [employer] dictation system. Although these documentations are being carefully reviewed, there may still be some phonetic and typographical changes. The errors are purely typographical, due to imperfection on the software program, and do not reflect any compromise in the patient's medical care. Plan discussed with: Patient, Other (YURI Best) Visit Coding Pulmonary Billing Provider: KELLI SIDDIQUI MD Date of Service if different f: Jul 11, 2025 Common Visit Codes: 49874-[id number] INP/OBS CARE(HIGH) KELLI SIDDIQUI MD Jul 11, 2025 23:51
== END 2025-07-11 23:35 | disposition home or self-care (01) | DRG 720 ==
LOC: ER 12:14 → OVERFLOW 18:13 → CENTRAL 18:22 → TELE-CENTR 07-07 23:54
PROVIDERS: ADMIT Internal Medicine Geriatric Medicine; ATTEND Internal Medicine Geriatric Medicine
PROC: 5A09357 Assistance with Respiratory Ventilation, Less than 24 Consecutive Hours, Continuous Positive Airway Pressure (ICD-10-PCS; principal; 2025-07-06)
PROC: 0W9G3ZZ Drainage of Peritoneal Cavity, Percutaneous Approach (ICD-10-PCS; 2025-07-07)
DX: A41.50 Gram-negative sepsis, unspecified (principal); J96.22 Acute and chronic respiratory failure with hypercapnia; I50.23 Acute on chronic systolic (congestive) heart failure; J96.21 Acute and chronic respiratory failure with hypoxia; J15.69 Pneumonia due to other Gram-negative bacteria; R18.8 Other ascites; J15.9 Unspecified bacterial pneumonia; J44.0 Chronic obstructive pulmonary disease with (acute) lower respiratory infection; I27.20 Pulmonary hypertension, unspecified; F32.A Depression, unspecified; I07.1 Rheumatic tricuspid insufficiency; F14.10 Cocaine abuse, uncomplicated; I21.A1 Myocardial infarction type 2; I27.81 Cor pulmonale (chronic); J44.1 Chronic obstructive pulmonary disease with (acute) exacerbation; E55.9 Vitamin D deficiency, unspecified; R16.0 Hepatomegaly, not elsewhere classified; L40.9 Psoriasis, unspecified; F17.210 Nicotine dependence, cigarettes, uncomplicated; R91.8 Other nonspecific abnormal finding of lung field; R59.1 Generalized enlarged lymph nodes; J98.11 Atelectasis; Z20.822 Contact with and (suspected) exposure to COVID-19; Z99.81 Dependence on supplemental oxygen
CPT/HCPCS: 36415; 36600; 49083; 71045; 71260; 74177; 76705; 76942; 80048; 80053; 80061; 80074; 80202; 80307; 81001; 82306; 82607; 82746; 82805; 83036; 83605; 83690; 83735; 83880; 83986; 84100; 84443; 84484; 85025; 85610; 85730; 87040; 87071; 87081; 87086; 87205; 87426; 87804; 88341; 89051; 93005; 93306; 93970; 94640; 94660; 96374; G0378; J2405; J2470